=== PATIENT | female | born 1950 | race Caucasian/White ===

== ENCOUNTER 2017-02-26 07:13 | Day surgery (SDC) | payer MEDICARE, OTHER ==
[2017-02-26] MEDS ORDERED: Lactated Ringers 1,000 ML IV SCH (07:15)
[2017-02-26] MEDS ORDERED: fentaNYL 100 MCG/2 ML SDV IV ONE (08:30)
[2017-02-26] MEDS ORDERED: Lidocaine 2% 100 MG/5 ML Syringe IVPUSH ONE (08:30)
[2017-02-26] MEDS ORDERED: Midazolam 1 MG/ML 2 ML SDV IV ONE (08:30)
[2017-02-26] MEDS ORDERED: Propofol 200 MG/20 ML SDV IV ONE (08:30)
--- NOTE | 2017-02-26 08:45 | PCM.OPNOTE ---
- General Post-Op/Procedure Note Date of Surgery/Procedure: 02/26/17 Operative Procedure(s): egd with bx Findings: normal gastric pouch small tongue of Nguyen's Pre Op Diagnosis: heme +stools. hx of Nguyen's. sp gastic bypasss Post-Op Diagnosis: Same Anesthesia Technique: MAC Primary Surgeon: Bertram Moser Anesthesia Provider: Sejal Do Pathology: distal esophagus EBL in mLs: 0 Complications: None Condition: Good Free Text/Narrative:: see dictation
[2017-02-26 09:39] VITALS: BP 120/58
--- NOTE | 2017-02-26 16:58 | OR ---
DATE OF OPERATION: 02/26/2017 SURGEON: Bertram Moser MD PROCEDURE PERFORMED: Esophagogastroduodenoscopy with cold forceps biopsy. PREOPERATIVE DIAGNOSES: Heme-positive stools, history of Nguyen's. POSTOPERATIVE DIAGNOSES: Heme-positive stools, history of Nguyen's. INDICATIONS FOR PROCEDURE: This is a 66-year-old white female, who was recently found to have heme-positive stools. She has had colonoscopy last year which was negative. She had an upper endoscopy done at the same time which demonstrated some Nguyen's without dysplasia, still is having a sour stomach and to determine etiology for her heme-positive stools, an EGD was recommended a followup and she accepted. DESCRIPTION OF PROCEDURE: After an excellent IV sedation was administered, the bite block was inserted. The flexible endoscope was passed without difficulty down the patient's esophagus into the stomach. The gastric pouch was insufflated. The scope was passed down the Amina limb and the mucosa was carefully inspected. The following findings were noted: Amina limb was unremarkable. Gastric pouch unremarkable. Distal esophagus, 40 cm tongue of Nguyen's noted, this was biopsied. There was no overt cause to explain the patient's heme-positive stools. Remainder of the esophageal exam was unremarkable. The stomach was deflated, scope was removed. The patient tolerated the procedure well and was taken to recovery in good condition. /[id number] /MODL
== END 2017-02-26 09:30 | disposition home or self-care (01) ==
LOC: FB.SDS 07:13
PROVIDERS: ATTEND Surgery
PROC: 0DB58ZX Excision of Esophagus, Via Natural or Artificial Opening Endoscopic, Diagnostic (ICD-10-PCS; principal; 2017-02-26)
DX: R19.5 Other fecal abnormalities (principal); K20.8 Other esophagitis; K22.70 Barrett's esophagus without dysplasia; Z98.84 Bariatric surgery status; K21.9 Gastro-esophageal reflux disease without esophagitis; D63.8 Anemia in other chronic diseases classified elsewhere; I10 Essential (primary) hypertension; M17.0 Bilateral primary osteoarthritis of knee; E78.5 Hyperlipidemia, unspecified; Z86.718 Personal history of other venous thrombosis and embolism; Z79.01 Long term (current) use of anticoagulants; I48.91 Unspecified atrial fibrillation; Z96.649 Presence of unspecified artificial hip joint; Z79.899 Other long term (current) drug therapy; Z88.1 Allergy status to other antibiotic agents; Z88.5 Allergy status to narcotic agent; Z88.8 Allergy status to other drugs, medicaments and biological substances; Z91.040 Latex allergy status; Z88.2 Allergy status to sulfonamides; Z91.048 Other nonmedicinal substance allergy status
CPT/HCPCS: 00902; 43239; 88305; 88313; J2250; J2704; J3010; J7120

== ENCOUNTER 2017-02-27 06:32 | Day surgery (SDC) | payer MEDICARE, OTHER ==
[~2017-02-27 06:32] MED LIST: Lactated Ringers 1,000 ML IV SCH; Sodium Chloride 0.9% 10 ML Syringe FLUSH PRN
[2017-02-27] MEDS ORDERED: Propofol 200 MG/20 ML SDV IV ONE (07:30)
--- NOTE | 2017-02-27 08:02 | PCM.OPNOTE ---
- General Post-Op/Procedure Note Date of Surgery/Procedure: 02/27/17 Operative Procedure(s): c scope with bx Findings: internal hemorrhoids distal rectal polyp Pre Op Diagnosis: heme + stools Post-Op Diagnosis: internal hemorrhoids. distal rectal polyp Anesthesia Technique: MAC Primary Surgeon: Bertram Moser Anesthesia Provider: Tim Gill Pathology: rectal polyp Complications: None Condition: Good Free Text/Narrative:: see dictation
--- NOTE | 2017-02-27 08:16 | OR ---
DATE OF OPERATION: 02/27/2017 SURGEON: Bertram Moser MD PROCEDURE PERFORMED: Colonoscopy with cold forceps biopsy. PREOPERATIVE DIAGNOSIS: Blood in stool. POSTOPERATIVE DIAGNOSIS: Distal rectal polyp and internal hemorrhoids. INDICATIONS FOR PROCEDURE: This is a 66-year-old white female who underwent an EGD yesterday for heme-positive stools. This was negative. She was offered and accepted a colonoscopy. DESCRIPTION OF PROCEDURE: After an excellent IV sedation was administered, digital rectal exam was performed. No marked abnormality was noted. The flexible colonoscope was inserted and advanced without difficulty to the cecum. The prep was excellent. The following findings were noted. Ascending colon, unremarkable. Transverse colon, unremarkable. Descending colon, unremarkable. Sigmoid, occasional diverticula. Rectum, distal rectum small polypoid lesion, biopsied with cold biopsy forceps. The patient also has evidence of internal hemorrhoids. Either one of these could be a cause of heme- positive stools. Colon was deflated. The scope was removed. The patient tolerated the procedure and was taken to recovery in good condition. /[id number] /MIKI
[2017-02-27 08:56] VITALS: BP 138/74
== END 2017-02-27 09:31 | disposition home or self-care (01) ==
LOC: FB.SDS 06:32
PROVIDERS: ATTEND Surgery
DX: K62.1 Rectal polyp (principal); K64.8 Other hemorrhoids; I10 Essential (primary) hypertension; E78.5 Hyperlipidemia, unspecified; Z88.1 Allergy status to other antibiotic agents; Z88.2 Allergy status to sulfonamides; Z88.8 Allergy status to other drugs, medicaments and biological substances; Z91.040 Latex allergy status; Z91.09 Other allergy status, other than to drugs and biological substances; Z79.01 Long term (current) use of anticoagulants; Z79.899 Other long term (current) drug therapy; E78.00 Pure hypercholesterolemia, unspecified; E66.9 Obesity, unspecified; Z98.84 Bariatric surgery status; Z98.890 Other specified postprocedural states; Z87.891 Personal history of nicotine dependence
CPT/HCPCS: 00810; 45380; 88305; J2704; J7050; J7120

== ENCOUNTER 2019-04-07 12:32 | Emergency (ER) | payer MEDICARE, OTHER ==
[2019-04-07] MEDS ORDERED: Sodium Chloride 0.9% 10 ML Syringe FLUSH PRN (13:21)
[2019-04-07] MEDS ORDERED: Metoprolol Tartrate 5 MG in Sodium Chloride 0.9% 50 ML IV ONE (13:22)
[2019-04-07] MEDS ORDERED: Sodium Chloride 0.9% 1,000 ML IV SCH (13:30)
[2019-04-07] MEDS ORDERED: Metoprolol Tartrate 5 MG/5 ML SDV IVPUSH ONE (13:48)
[2019-04-07] MEDS ORDERED: Diltiazem 25 MG/5 ML SDV IVPUSH ONE (14:26)
--- NOTE | 2019-04-07 15:35 | EDM.PDOC ---
ED HPI GENERAL MEDICAL PROBLEM - General Chief Complaint: Chest Pain Stated Complaint: A-FIB, SOB Time Seen by Provider: 04/07/19 12:55 Source of Information: Reports: Patient History Limitations: Reports: No Limitations - History of Present Illness INITIAL COMMENTS - FREE TEXT/NARRATIVE: 68-year-old female who reports at approximately midnight last night she awoke just not feeling right. She feels that she was having palpitations and a fast heart rate at that time and she also felt somewhat short of breath. She was unable to get comfortable and actually got up and had some water, walked around for a while then felt that she was somewhat improved but still had a fast heart rate and went back to bed and was able to go back to sleep. She reports that she had a fitful night of sleep and at 6 AM this morning she awoke and thought that may be coffee may help and she had about 8 cups of coffee and she reports that her symptoms seem to worsen through the day with worsening shortness of breath with activity and at around 11 AM she began to have tightness in her chest that was associated with increased difficulty breathing and some nausea. She also felt somewhat lightheaded and near syncopal and was rating the pain in her chest that point as a 6/10. Currently her pain is a 4/10. When she arrived, she was hyperventilating and she was complaining of tingling in both of her arms and her legs. She also felt weak all over. The tightness in her chest did not radiate. There was no arm pain, neck pain or back pain. She has had paroxysmal atrial fibrillation in the past but has really never had symptoms like these associated with her A. fib. She is chronically anticoagulated with Coumadin secondary to her atrial fibrillation. No cough. No fevers or chills. No noted leg swelling. She presents via private vehicle with her family there are no other associated signs or symptoms. There are no other modifying factors. Onset: Today (Around midnight. 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: Home Treatments Midsternal chest & posterior neck Pain Score (Numeric/FACES): 5 - Related Data Allergies Allergy/AdvReac Type Severity Reaction Status Date / Time acetaminophen Allergy Nausea Verified 04/07/19 12:48 [From Darvocet-N 100] adhesive Allergy Itching Verified 04/07/19 12:48 amoxicillin [Amoxicillin] Allergy Itching Verified 04/07/19 12:48 cyclobenzaprine Allergy Cannot Verified 04/07/19 12:48 [Cyclobenzaprine] Remember diclofenac [Diclofenac] Allergy Cannot Verified 04/07/19 12:48 Remember doxycycline Allergy Itching Verified 04/07/19 12:48 hydrocodone Allergy Nausea Verified 04/07/19 12:48 hydromorphone [From Dilaudid] Allergy Hallucinati Verified 04/07/19 12:48 ons latex Allergy Rash Verified 04/07/19 12:48 nitrous oxide [Nitrous Oxide] Allergy Excitabilit Verified 04/07/19 12:48 y prednisone Allergy Itching Verified 04/07/19 12:48 pregabalin [From Lyrica] Allergy Confusion Verified 04/07/19 12:48 propoxyphene napsylate Allergy Nausea Verified 04/07/19 12:48 [From Darvocet-N 100] pseudoephedrine HCl Allergy Dizziness Verified 04/07/19 12:48 [From Actifed] rofecoxib [From Vioxx] Allergy Cannot Verified 04/07/19 12:48 Remember Sulfa (Sulfonamide Allergy Itching Verified 04/07/19 12:48 Antibiotics) tramadol Allergy Nausea Verified 04/07/19 12:48 triprolidine HCl Allergy Dizziness Verified 04/07/19 12:48 [From Actifed] dust mite extract Allergy Sneezing Uncoded 04/07/19 12:48 Home Meds: Home Meds Ascorbic Acid [Vitamin C with Veronika Hips] 500 mg PO DAILY 12/01/13 [History] Biotin 10 mg PO DAILY 12/01/13 [History] Cholecalciferol (Vitamin D3) [Vitamin D3] 2,000 unit PO DAILY 12/01/13 [History] Cyanocobalamin (Vitamin B-12) [Vitamin B-12] 500 mcg PO DAILY 12/01/13 [History] Lisinopril 40 mg PO DAILY 12/01/13 [History] Acetaminophen [Tylenol Arthritis Pain] 1,300 mg PO Q8H PRN 06/14/16 [History] Docusate Sodium [Colace] 200 mg PO DAILY 06/14/16 [History] Oxybutynin Chloride [Ditropan Xl] 5 mg PO BID 06/14/16 [History] Polyethylene Glycol 3350 [MiraLAX] 17 gm PO DAILY PRN 06/14/16 [History] Magnesium 250 mg PO BID 10/20/16 [History] Metoprolol Tartrate 50 mg PO BID 10/20/16 [History] Multivitamin [Daily Elsa] 1 tab PO DAILY 10/20/16 [History] Pantoprazole Sodium [Protonix] 40 mg PO BEDTIME 10/20/16 [History] Cephalexin [Keflex] 2,000 mg PO ONETIME 02/23/17 [History] Warfarin [Coumadin] 12.5 mg PO MOWEFR 02/23/17 [History] Calcium Carbonate/Vitamin D3 [Calcium 500-Vit D3 200 Tablet] 1 each PO BID 02/26 [History] Warfarin [Coumadin] 10 mg PO SUTUTHSA 04/07/19 [History] Past Medical History HEENT History: Reports: Impaired Vision Cardiovascular History: Reports: Afib (Paroxysmal), High Cholesterol, Hypertension, Other (See Below) Other Cardiovascular History: DVT Respiratory History: Reports: Asthma Gastrointestinal History: Reports: Colon Polyp, GERD (COLE'S ESOPHAGUS) Genitourinary History: Reports: Other (See Below) Other Genitourinary History: OAB (OVERACTIVE BLADDER) Musculoskeletal History: Reports: Arthritis, Back Pain, Chronic, Osteoarthritis , Other (See Below) Other Musculoskeletal History: BURSITIS, LEFT KNEE OSTEOARTHRITIS, SPINAL STENOSIS, SPONDYLOLISTHESIS Neurological History: Reports: Other (See Below) Other Neuro History: SPINAL STENOSIS ET SPONDYLOLISTHESIS OF LUMBAR REGION Endocrine/Metabolic History: Reports: Obesity/BMI 30+ Hematologic History: Reports: Anemia, Blood Transfusion(s), Other (See Below) Other Hematologic History: HX OF DVT; acute blood loss anemia secondary to surgery Dermatologic History: Reports: Eczema - Past Surgical History GI Surgical History: Reports: Bariatric Procedure (Gastric bypass), Colonoscopy , EGD, Hernia, Inguinal Other GI Surgeries/Procedures: LIH WITH EXPLORATION Neurological Surgical History: Reports: Lumbar Spine Other Neurological Surgeries/Procedures: LUMBAR FUSION Musculoskeletal Surgical History: Reports: Hip Replacement, Other (See Below) Other Musculoskeletal Surgeries/Procedures:: catalnio. hip arthroplasties 2006 and 2007, REVISION OF LEFT TOTAL HIP ARTHROPLAST 11/20/2013, LUMBAR FUSION Social & Family History - Tobacco Use Smoking Status *Q: Former Smoker Used Tobacco, but Quit: Yes Month/Year Tobacco Last Used: 1997 - Caffeine Use Caffeine Use: Reports: Coffee Caffeine Use Comment: before surgery consuming 4 cups a day. - Alcohol Use Alcohol Use History: Yes Days Per Week of Alcohol Use Comment: 5 Number of Drinks Per Day: 1 - Recreational Drug Use Recreational Drug Use: No - Living Situation & Occupation Living situation: Reports: Social History Comment: Here with her and son. ED ROS GENERAL - Review of Systems Review Of Systems: See Below Constitutional: Reports: Malaise, Fatigue HEENT: Reports: No Symptoms Respiratory: Reports: Shortness of Breath Cardiovascular: Reports: Chest Pain, Dyspnea on Exertion, Lightheadedness : Reports: No Symptoms Musculoskeletal: Reports: No Symptoms Skin: Reports: No Symptoms Neurological: Reports: Other (Near syncopal). Denies: Headache Psychiatric: Reports: Anxiety Hematologic/Lymphatic: Reports: Easy Bleeding (Chronically anticoagulated on Coumadin) Immunologic: Reports: No Symptoms ED EXAM, GENERAL - Physical Exam Exam: See Below Exam Limited By: No Limitations General Appearance: Alert, WD/WN, Moderate Distress Eye Exam: Bilateral Eye: EOMI, Normal Inspection, PERRL Ears: Normal External Exam Ear Exam: Bilateral Ear: Auricle Normal Nose: Normal Inspection, Normal Mucosa, No Blood Throat/Mouth: Normal Inspection, Normal Oropharynx, Normal Voice, No Airway Compromise Head: Atraumatic, Normocephalic Neck: Normal Inspection, Supple, Non-Tender, Full Range of Motion Respiratory/Chest: No Respiratory Distress, Lungs Clear, Normal Breath Sounds, No Accessory Muscle Use, Chest Non-Tender Cardiovascular: Normal Peripheral Pulses, No Gallop, No JVD, Tachycardia, Irregularly Irregular Peripheral Pulses: 2+: Radial (L), Radial (R) GI/Abdominal: Normal Bowel Sounds, Soft, Non-Tender, No Distention, No Mass Back Exam: Normal Inspection Extremities: Normal Inspection, Normal Range of Motion, Non-Tender, Normal Capillary Refill, Pedal Edema (Trace) Neurological: Alert, Oriented, CN II-XII Intact, Normal Cognition Psychiatric: Normal Affect, Normal Mood Skin Exam: Warm, Dry, Intact EKG INTERPRETATION EKG Date: 04/07/19 Time: 12:36 Rhythm: A-Fib (With RVR) Rate (Beats/Min): 120 [place]: Normal P-Wave: Absent QRS: Normal ST-T: Depressed (Anterior and lateral) QT: Normal Comparison: NA - No Prior EKG (The patient reports that she was in a normal sinus rhythm prior to this.) EKG Interpretation Comments: EKG performed at 3:32 PM today in follow-up after diltiazem given IV shows atrial fibrillation with a rate of 89. There is evidence of LVH. The lateral and inferior ST depression changes have resolved. There is a normal axis with a normal QTC. Course - Vital Signs Last Recorded V/S: Last Vital Signs Temp 36.8 C 04/07/19 12:32 Pulse 129 H 04/07/19 13:57 Resp 28 H 04/07/19 12:32 BP 120/87 04/07/19 13:57 Pulse Ox 100 04/07/19 12:32 - Orders/Labs/Meds Orders: Active Orders 24 hr Category Date Time Status EKG Documentation Completion [RC] ASDIRECTED Care 04/07/19 13:22 Active EKG Documentation Completion [RC] ASDIRECTED Care 04/07/19 15:28 Active Oxygen Therapy Adult [Oxygen Therapy, ED] [RC] Care 04/07/19 13:23 Active ASDIRECTED Chest 1V Frontal [CR] Stat Exams 04/07/19 13:21 Taken Sodium Chloride 0.9% [Normal Saline] 1,000 ml Med 04/07/19 13:30 Active IV ASDIRECTED Sodium Chloride 0.9% [Saline Flush] Med 04/07/19 13:21 Active 10 ml FLUSH ASDIRECTED PRN Peripheral IV Insertion Adult [OM.PC] Routine Oth 04/07/19 13:21 Ordered EKG 12 Lead [EK] Routine Ther 04/07/19 13:22 Ordered EKG 12 Lead [EK] Routine Ther 04/07/19 15:28 Ordered Medication Orders Sodium Chloride (Normal Saline) 1,000 mls @ 0 mls/hr IV ASDIRECTED ZACHARIAH Stop: 04/11/19 13:23 Last Admin: 04/07/19 13:54 Dose: 30 mls/hr Sodium Chloride (Saline Flush) 10 ml FLUSH ASDIRECTED PRN PRN Reason: Keep Vein Open Labs: Laboratory Tests 04/07/19 04/07/19 04/07/19 Range/Units 12:32 12:32 12:32 WBC 7.1 (4.5-12.0) X10-3/uL RBC 4.21 (3.23-5.20) x10(6)uL Hgb 14.0 (11.5-15.5) g/dL Hct 41.2 D (30.0-51.3) % MCV 97.9 H (80-96) fL MCH 33.2 (27.7-33.6) pg MCHC 33.9 (32.2-35.4) g/dL RDW 12.2 (11.5-15.5) % Plt Count 288 (125-369) X10(3)uL MPV 7.1 L (7.4-10.4) fL Neut % (Auto) 48.1 (46-82) % Lymph % (Auto) 42.7 H (13-37) % [place] % (Auto) 8.3 (4-12) % Eos % (Auto) 1 (1.0-5.0) % Baso % (Auto) 0 (0-2) % Neut # (Auto) 3.5 (1.6-8.3) # Lymph # (Auto) 3.0 (0.6-5.0) # [place] # (Auto) 0.6 (0.0-1.3) # Eos # (Auto) 0.0 (0.0-0.8) # Baso # (Auto) 0.0 (0.0-0.2) # PT 20.6 H (8.7-11.1) INR 2.14 H (0.89-1.13) Sodium 139 (135-145) mmol/L Potassium 4.2 (3.5-5.3) mmol/L Chloride 101 (100-110) mmol/L Carbon Dioxide 26 (21-32) mmol/L BUN 13 (7-18) mg/dL Creatinine 0.9 (0.55-1.02) mg/dL Est Cr Clr Drug Dosing 52.34 mL/min Estimated GFR (MDRD) > 60 (>60) BUN/Creatinine Ratio 14.4 (9-20) Glucose 144 H (80-116) mg/dL Calcium 9.3 (8.6-10.2) mg/dL Magnesium 1.9 (1.8-2.5) mg/dL Total Bilirubin 0.5 (0.1-1.3) mg/dL AST 28 H (5-25) IU/L ALT 41 H (12-36) U/L Alkaline Phosphatase 62 (56-112) IU/L Troponin I (<0.017-0.056) ng/mL NT-Pro-B Natriuret Pep (<=125) pg/mL Total Protein 7.3 (6.0-8.0) g/dL Albumin 4.1 (3.2-4.6) g/dL Globulin 3.2 g/dL Albumin/Globulin Ratio 1.3 // Range/Units 12:32 WBC (4.5-12.0) X10-3/uL RBC (3.23-5.20) x10(6)uL Hgb (11.5-15.5) g/dL Hct (30.0-51.3) % MCV (80-96) fL MCH (27.7-33.6) pg MCHC (32.2-35.4) g/dL RDW (11.5-15.5) % Plt Count (125-369) X10(3)uL MPV (7.4-10.4) fL Neut % (Auto) (46-82) % Lymph % (Auto) (13-37) % [place] % (Auto) (4-12) % Eos % (Auto) (1.0-5.0) % Baso % (Auto) (0-2) % Neut # (Auto) (1.6-8.3) # Lymph # (Auto) (0.6-5.0) # [place] # (Auto) (0.0-1.3) # Eos # (Auto) (0.0-0.8) # Baso # (Auto) (0.0-0.2) # PT (8.7-11.1) INR (0.89-1.13) Sodium (135-145) mmol/L Potassium (3.5-5.3) mmol/L Chloride (100-110) mmol/L Carbon Dioxide (21-32) mmol/L BUN (7-18) mg/dL Creatinine (0.55-1.02) mg/dL Est Cr Clr Drug Dosing mL/min Estimated GFR (MDRD) (>60) BUN/Creatinine Ratio (9-20) Glucose (80-116) mg/dL Calcium (8.6-10.2) mg/dL Magnesium (1.8-2.5) mg/dL Total Bilirubin (0.1-1.3) mg/dL AST (5-25) IU/L ALT (12-36) U/L Alkaline Phosphatase (56-112) IU/L Troponin I 0.027 (<0.017-0.056) ng/mL NT-Pro-B Natriuret Pep 2928 H* (<=125) pg/mL Total Protein (6.0-8.0) g/dL Albumin (3.2-4.6) g/dL Globulin g/dL Albumin/Globulin Ratio Meds: Medications Generic Name Dose Route Start Last Admin Trade Name Freq PRN Reason Stop Dose Admin Sodium Chloride 1,000 mls @ 0 mls/hr 04/07/19 13:30 04/07/19 13:54 Normal Saline IV 04/11/19 13:23 30 mls/hr ASDIRECTED ZACHARIAH Administration KVO Sodium Chloride 10 ml 04/07/19 13:21 Saline Flush FLUSH ASDIRECTED PRN Keep Vein Open Discontinued Medications Generic Name Dose Route Start Last Admin Trade Name Freq PRN Reason Stop Dose Admin Diltiazem HCl 20 mg 04/07/19 14:26 04/07/19 14:33 Diltiazem IVPUSH 04/07/19 14:27 20 mg ONETIME ONE Administration Metoprolol Tartrate 5 mg 04/07/19 13:48 04/07/19 13:57 Lopressor IVPUSH 04/07/19 13:49 5 mg ONETIME ONE Administration - Radiology Interpretation Free Text/Narrative:: Portable chest x-ray shows no acute disease. - Re-Assessments/Exams Free Text/Narrative Re-Assessment/Exam: 04/07/19 14:10: Patient has had no response from the metoprolol. He remains in A. fib with RVR and a rate in the 130s. Her breathing has improved. She still has some chest tightness. I will give the patient diltiazem 20 mg IV and continue close monitoring. Her BNP is markedly elevated but her chest x-ray does not show evidence of decompensated CHF. Her symptoms are somewhat supportive of mild CHF. Her troponin is 0.027. With her A. fib with RVR, chest pain, new mild CHF and the mild troponin abnormality the patient will need admission and she may need specially services which are not available at [facility]. Or she will need be transferred to a facility with these specially services (cardiology) available and she will wants me to discuss her case with DrsRoxie at [facility] in [place]. 04/07/19 14:50: I discussed patient's case with Dr. Kramer, hospitalist at [facility] in [place], and he has agreed to accept the patient in transfer. The patient had received the diltiazem 20 mg IV and currently has what appears to be A. fib on the monitor with a ventricular rate in the 80s. She feels improved with this. The patient will be transferred via ambulance to [facility] for direct admission. 04/07/19 15:58: Repeat EKG performed at 3:30 PM does show continued A. fib with a heart rate of 89. The lateral and inferior ST depressions which is been previous on the previous EKG are now resolved. She has chest tightness free and feels much improved. These dynamic EKG changes also support her eat for transfer. The patient and her are in agreement with the plans for transfer. We are awaiting ambulance transfer. Departure - Departure Time of Disposition: 15:40 Disposition: DC/Tfer to Acute Hospital 02 Reason for Transfer *Q: Other (Patient with chest pain and dynamic EKG changes) Condition: Critical (Guarded) Clinical Impression: Atrial fibrillation with RVR, Mild congestive heart failure, Acute electrocardiogram changes Chest pain Qualifiers: Chest pain type: unspecified Qualified Code(s): R07.9 - Chest pain, unspecified Referrals: Juan Pacheco MD [Primary Care Provider] - Forms: ED Department Discharge - My Orders Last 24 Hours: My Active Orders 04/07/19 13:21 Chest 1V Frontal [CR] Stat Sodium Chloride 0.9% [Saline Flush] 10 ml FLUSH ASDIRECTED PRN Peripheral IV Insertion Adult [OM.PC] Routine 04/07/19 13:22 EKG Documentation Completion [RC] ASDIRECTED EKG 12 Lead [EK] Routine 04/07/19 13:23 Oxygen Therapy Adult [Oxygen Therapy, ED] [RC] ASDIRECTED 04/07/19 13:30 Sodium Chloride 0.9% [Normal Saline] 1,000 ml IV ASDIRECTED 04/07/19 15:28 EKG Documentation Completion [RC] ASDIRECTED EKG 12 Lead [EK] Routine - Assessment/Plan Last 24 Hours: My Active Orders 04/07/19 13:21 Chest 1V Frontal [CR] Stat Sodium Chloride 0.9% [Saline Flush] 10 ml FLUSH ASDIRECTED PRN Peripheral IV Insertion Adult [OM.PC] Routine 04/07/19 13:22 EKG Documentation Completion [RC] ASDIRECTED EKG 12 Lead [EK] Routine 04/07/19 13:23 Oxygen Therapy Adult [Oxygen Therapy, ED] [RC] ASDIRECTED 04/07/19 13:30 Sodium Chloride 0.9% [Normal Saline] 1,000 ml IV ASDIRECTED 04/07/19 15:28 EKG Documentation Completion [RC] ASDIRECTED EKG 12 Lead [EK] Routine
[2019-04-07 17:42] VITALS: BP 154/74
--- NOTE | 2019-04-08 08:58 | CR ---
INDICATION: Chest tightness and palpitations. CHEST ONE VIEW: AP upright portable view of the chest revealed the heart to be normal in size and shape. The aorta is minimally tortuous. Overlying EKG leads are noted. An active infiltrate or effusion was not identified. IMPRESSION: No acute process--no comparisons. MTDD
== END 2019-04-07 16:15 ==
LOC: FB.ED 12:32
DX: I48.91 Unspecified atrial fibrillation (principal); I11.0 Hypertensive heart disease with heart failure; I50.9 Heart failure, unspecified; R94.31 Abnormal electrocardiogram [ECG] [EKG]; Z87.891 Personal history of nicotine dependence; J45.909 Unspecified asthma, uncomplicated; Z79.899 Other long term (current) drug therapy; Z88.6 Allergy status to analgesic agent; Z88.1 Allergy status to other antibiotic agents; Z88.2 Allergy status to sulfonamides; Z91.09 Other allergy status, other than to drugs and biological substances; Z91.040 Latex allergy status; Z88.8 Allergy status to other drugs, medicaments and biological substances
CPT/HCPCS: 36415; 71045; 80053; 83735; 83880; 84484; 85025; 85610; 93005; 96361; 96374; 96375; 99285; J3490; J7030

== ENCOUNTER 2019-12-24 01:03 | Inpatient (IN) | payer MEDICARE, OTHER ==
--- NOTE | 2019-12-24 01:32 | EDM.PDOC ---
ED HPI GENERAL MEDICAL PROBLEM - General Chief Complaint: Chest Pain Stated Complaint: BACK PAIN; CHEST PAIN Time Seen by Provider: 12/24/19 01:25 Source of Information: Reports: Patient History Limitations: Reports: No Limitations - History of Present Illness INITIAL COMMENTS - FREE TEXT/NARRATIVE: 69-year-old female with onset of bilateral breast pain that was a soreness which she states began about 2-3 days ago. It was intermittent and did not last for very long but since then she has developed pain in her central chest that is a tightness and pressure that also seems to come and go and last for a variable period of time. She reports that it does not seem to have any exacerbating or alleviating factors. She has no shortness of breath associated with this. She has had some intermittent dizziness associated with this. It seems to come on when she sits up and goes away quickly. The pain has been continual over the past 2-3 hours and she also has some right upper back pain. This pain is a tightness and aching type of pain and she rates it as a 5-6/10. There are no exacerbating or alleviating factors associated with this. She has had some nausea associated with this but no vomiting. No cough. No nasal congestion. No fevers. She states that she has been taking her medicine as prescribed. She does report that she took Tums without any relief. She presents via private vehicle with her from home. There are no other associated signs or symptoms. There are no other modifying factors. Onset: Other (2-3 days) Duration: Getting Worse Location: Reports: Chest, Back Quality: Reports: Ache, Pressure Severity: Moderate (Rated the pain as a 5-6/10 today.) Improves with: Reports: None Worsens with: Reports: None Context: Reports: Other (As above. Came on with variable activity and rest. 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) chest and right side of back Pain Score (Numeric/FACES): 6 - Related Data Allergies Allergy/AdvReac Type Severity Reaction Status Date / Time acetaminophen Allergy Nausea Verified 12/24/19 01:16 [From Darvocet-N 100] adhesive Allergy Itching Verified 12/24/19 01:16 amoxicillin [Amoxicillin] Allergy Itching Verified 12/24/19 01:16 cyclobenzaprine Allergy Cannot Verified 12/24/19 01:16 [Cyclobenzaprine] Remember diclofenac [Diclofenac] Allergy Cannot Verified 12/24/19 01:16 Remember doxycycline Allergy Itching Verified 12/24/19 01:16 hydrocodone Allergy Nausea Verified 12/24/19 01:16 hydromorphone [From Dilaudid] Allergy Hallucinati Verified 12/24/19 01:16 ons latex Allergy Rash Verified 12/24/19 01:16 nitrous oxide [Nitrous Oxide] Allergy Excitabilit Verified 12/24/19 01:16 y prednisone Allergy Itching Verified 12/24/19 01:16 pregabalin [From Lyrica] Allergy Confusion Verified 12/24/19 01:16 propoxyphene napsylate Allergy Nausea Verified 12/24/19 01:16 [From Darvocet-N 100] pseudoephedrine HCl Allergy Dizziness Verified 12/24/19 01:16 [From Actifed] rofecoxib [From Vioxx] Allergy Cannot Verified 12/24/19 01:16 Remember Sulfa (Sulfonamide Allergy Itching Verified 12/24/19 01:16 Antibiotics) tramadol Allergy Nausea Verified 12/24/19 01:16 triprolidine HCl Allergy Dizziness Verified 12/24/19 01:16 [From Actifed] dust mite extract Allergy Sneezing Uncoded 04/07/19 12:48 Home Meds: Home Meds Ascorbic Acid [Vitamin C with Veronika Hips] 500 mg PO DAILY 12/01/13 [History] Biotin 10 mg PO DAILY 12/01/13 [History] Cholecalciferol (Vitamin D3) [Vitamin D3] 2,000 unit PO DAILY 12/01/13 [History] Cyanocobalamin (Vitamin B-12) [Vitamin B-12] 500 mcg PO DAILY 12/01/13 [History] Lisinopril 40 mg PO DAILY 12/01/13 [History] Acetaminophen [Tylenol Arthritis Pain] 1,300 mg PO Q8H PRN 06/14/16 [History] Docusate Sodium [Colace] 200 mg PO DAILY 06/14/16 [History] Oxybutynin Chloride [Ditropan Xl] 5 mg PO BID 06/14/16 [History] Polyethylene Glycol 3350 [MiraLAX] 17 gm PO DAILY PRN 06/14/16 [History] Magnesium 250 mg PO BID 10/20/16 [History] Metoprolol Tartrate 50 mg PO BID 10/20/16 [History] Multivitamin [Daily Elsa] 1 tab PO DAILY 10/20/16 [History] Pantoprazole Sodium [Protonix] 40 mg PO BEDTIME 10/20/16 [History] Cephalexin [Keflex] 2,000 mg PO ONETIME 02/23/17 [History] Warfarin [Coumadin] 12.5 mg PO MOWEFR 02/23/17 [History] Calcium Carbonate/Vitamin D3 [Calcium 500-Vit D3 200 Tablet] 1 each PO BID 02/26 [History] Warfarin [Coumadin] 10 mg PO SUTUTHSA 04/07/19 [History] Past Medical History HEENT History: Reports: Impaired Vision Cardiovascular History: Reports: Afib (Paroxysmal), Blood Clots/VTE/DVT, High Cholesterol, Hypertension Respiratory History: Reports: Asthma Other Respiratory History: mild, intermittent Gastrointestinal History: Reports: Colon Polyp, GERD (COLE'S ESOPHAGUS) Other Gastrointestinal History: COLE'S ESOPHAGUS Genitourinary History: Reports: Other (See Below) Other Genitourinary History: OAB (OVERACTIVE BLADDER) ON AIR PERSONALITY History: Reports: Other (See Below) Other ON AIR PERSONALITY History: NULLIGRAVIDA Musculoskeletal History: Reports: Arthritis, Back Pain, Chronic, Osteoarthritis , Other (See Below) Other Musculoskeletal History: BURSITIS, LEFT KNEE OSTEOARTHRITIS, SPINAL STENOSIS, SPONDYLOLISTHESIS Neurological History: Reports: Other (See Below) Other Neuro History: SPINAL STENOSIS ET SPONDYLOLISTHESIS OF LUMBAR REGION Endocrine/Metabolic History: Reports: Obesity/BMI 30+ Hematologic History: Reports: Anemia, Anticoagulation Therapy, Blood Transfusion (s), Other (See Below) Other Hematologic History: HX OF DVT; acute blood loss anemia secondary to surgery Dermatologic History: Reports: Eczema - Past Surgical History GI Surgical History: Reports: Bariatric Procedure (Gastric bypass), Colonoscopy , EGD, Hernia, Inguinal Other GI Surgeries/Procedures: LIH WITH EXPLORATION Neurological Surgical History: Reports: Lumbar Spine Other Neurological Surgeries/Procedures: LUMBAR FUSION Musculoskeletal Surgical History: Reports: Ganglion Cyst (Removed from right wrist), Hip Replacement, Other (See Below) Other Musculoskeletal Surgeries/Procedures:: catalino. hip arthroplasties 2006 and 2007, REVISION OF LEFT TOTAL HIP ARTHROPLAST 11/20/2013, LUMBAR FUSION Social & Family History - Tobacco Use Smoking Status *Q: Former Smoker (Nonsmoker since 1997.) - Caffeine Use Caffeine Use: Reports: Coffee Caffeine Use Comment: before surgery consuming 4 cups a day. - Alcohol Use Alcohol Use History: Yes Alcohol Use Frequency: Daily (She states she has 2-3 mixed drinks every night.) - Living Situation & Occupation Living situation: Reports: Occupation: Retired Social History Comment: She is here with her . ED ROS GENERAL - Review of Systems Review Of Systems: See Below Constitutional: Reports: No Symptoms HEENT: Reports: No Symptoms Respiratory: Reports: No Symptoms Cardiovascular: Reports: Chest Pain Endocrine: Reports: No Symptoms GI/Abdominal: Reports: Nausea. Denies: Vomiting Musculoskeletal: Reports: Back Pain (Right upper back pain) Neurological: Reports: Dizziness (Intermittent) Hematologic/Lymphatic: Reports: Easy Bleeding, Other (Patient is chronically anticoagulated on Coumadin.) Immunologic: Reports: No Symptoms ED EXAM, GENERAL - Physical Exam Exam: See Below Exam Limited By: No Limitations General Appearance: Alert, WD/WN, Anxious, Mild Distress Eye Exam: Right Eye: Other (Probable pterygium on right lateral eye), Bilateral Eye: EOMI, Normal Inspection Ears: Normal External Exam, Hearing Grossly Normal Ear Exam: Bilateral Ear: Auricle Normal Nose: Normal Inspection, Normal Mucosa, No Blood Throat/Mouth: Normal Inspection, Normal Oropharynx, Normal Voice, No Airway Compromise Head: Atraumatic, Normocephalic Neck: Normal Inspection, Supple, Non-Tender, Full Range of Motion Respiratory/Chest: No Respiratory Distress, Lungs Clear, Normal Breath Sounds, No Accessory Muscle Use, Chest Non-Tender Cardiovascular: Normal Peripheral Pulses, Regular Rate, Rhythm, No JVD, No Murmur Peripheral Pulses: 2+: Radial (L), Radial (R), Dorsalis Pedis (L), Dorsalis Pedis (R) GI/Abdominal: Normal Bowel Sounds, Soft, Non-Tender, No Mass Back Exam: Normal Inspection, Full Range of Motion Extremities: Normal Inspection, Normal Range of Motion, Non-Tender, No Pedal Edema, Normal Capillary Refill Neurological: Alert, Oriented, CN II-XII Intact, Normal Cognition, No Motor/ Sensory Deficits Skin Exam: Warm, Dry, Intact, Normal Color, No Rash EKG INTERPRETATION EKG Date: 12/24/19 Time: 01:26 Rhythm: NSR Rate (Beats/Min): 64 [place]: Normal P-Wave: Present QRS: Normal ST-T: Normal QT: Normal Comparison: Change From Previous EKG (Previous EKG on 04/07/2019 showed atrial fibrillation and that is now resolved.) EKG Interpretation Comments: Repeat EKG performed at 2:54 AM shows no change from the previous EKG performed today. There is a normal sinus rhythm with a normal axis and normal intervals. There is no current of injury or ischemia present. Course - Vital Signs Last Recorded V/S: Last Vital Signs Temp 36.3 C 12/24/19 01:03 Pulse 60 12/24/19 04:28 Resp 18 12/24/19 04:28 BP 146/65 H 12/24/19 03:18 Pulse Ox 98 12/24/19 04:28 - Orders/Labs/Meds Orders: Active Orders 24 hr Category Date Time Status Admission Status [Patient Status] [ADT] Routine ADT 12/24/19 04:38 Active Cardiac Monitoring [RC] .As Directed Care 12/24/19 04:38 Active EKG Documentation Completion [RC] ASDIRECTED Care 12/24/19 01:45 Active EKG Documentation Completion [RC] ASDIRECTED Care 12/24/19 02:49 Active Ang Chest [CT] Stat Exams 12/24/19 02:57 Taken CTA Abd Pelv w Cont [CT] Stat Exams 12/24/19 02:57 Taken Chest 1V Frontal [CR] Stat Exams 12/24/19 01:54 Taken Sodium Chloride 0.9% [Normal Saline] 1,000 ml Med 12/24/19 02:00 Active IV ASDIRECTED Sodium Chloride 0.9% [Saline Flush] Med 12/24/19 01:54 Active 10 ml FLUSH ASDIRECTED PRN Peripheral IV Insertion Adult [OM.PC] Routine Oth 12/24/19 01:54 Ordered EKG 12 Lead [EK] Routine Ther 12/24/19 01:15 Ordered EKG 12 Lead [EK] Routine Ther 12/24/19 02:49 Ordered Medication Orders Sodium Chloride (Normal Saline) 1,000 mls @ 0 mls/hr IV ASDIRECTED ZACHARIAH Stop: 12/28/19 01:57 Last Admin: 12/24/19 02:20 Dose: 25 mls/hr Sodium Chloride (Normal Saline) 1,000 mls @ 100 mls/hr IV ASDIRECTED ZACHARIAH Morphine Sulfate (Morphine) 2 mg IVPUSH Q2H PRN PRN Reason: Pain Ondansetron HCl (Zofran) 4 mg IV Q6H PRN PRN Reason: Nausea/Vomiting Pantoprazole Sodium (Protonix Iv) 40 mg IVPUSH Q12H ZACHARIAH Sodium Chloride (Saline Flush) 10 ml FLUSH ASDIRECTED PRN PRN Reason: Keep Vein Open Last Admin: 12/24/19 02:40 Dose: 10 ml Admin: 12/24/19 02:20 Dose: 10 ml Labs: Laboratory Tests 12/24/19 12/24/19 12/24/19 Range/Units 02:06 02:06 02:06 WBC 5.6 (4.5-12.0) X10-3/uL RBC 3.70 (3.23-5.20) x10(6)uL Hgb 12.4 (11.5-15.5) g/dL Hct 36.6 (30.0-51.3) % MCV 99.0 H (80-96) fL MCH 33.5 (27.7-33.6) pg MCHC 33.8 (32.2-35.4) g/dL RDW 12.0 (11.5-15.5) % Plt Count 266 (125-369) X10(3)uL MPV 6.3 L (7.4-10.4) fL Neut % (Auto) 74.6 (46-82) % Lymph % (Auto) 17.0 (13-37) % [place]ven % (Auto) 7.2 (4-12) % Eos % (Auto) 1 (1.0-5.0) % Baso % (Auto) 1 (0-2) % Neut # (Auto) 4.2 (1.6-8.3) # Lymph # (Auto) 1.0 (0.6-5.0) # Craven # (Auto) 0.4 (0.0-1.3) # Eos # (Auto) 0.0 (0.0-0.8) # Baso # (Auto) 0.0 (0.0-0.2) # PT 29.9 H (9.0-11.1) sec INR 3.11 H (1.00-1.24) D-Dimer, Quantitative 0.71 H (0.0-0.59) mg/LFEU Sodium 133 L (135-145) mmol/L Potassium 4.1 (3.5-5.3) mmol/L Chloride 96 L D (100-110) mmol/L Carbon Dioxide 29 (21-32) mmol/L BUN 13 (7-18) mg/dL Creatinine 0.8 (0.55-1.02) mg/dL Est Cr Clr Drug Dosing 55.70 mL/min Estimated GFR (MDRD) > 60 (>60) BUN/Creatinine Ratio 16.3 (9-20) Glucose 98 (80-116) mg/dL Calcium 8.9 (8.6-10.2) mg/dL Magnesium 1.8 (1.8-2.5) mg/dL Total Bilirubin 0.3 (0.1-1.3) mg/dL AST 42 H D (5-25) IU/L ALT 44 H (12-36) U/L Alkaline Phosphatase 53 L (56-112) IU/L Troponin I (4.0-60.3) pg/mL Total Protein 7.1 (6.0-8.0) g/dL Albumin 3.8 (3.2-4.6) g/dL Globulin 3.3 g/dL Albumin/Globulin Ratio 1.2 Lipase (73-393) U/L 12/24/19 12/24/19 Range/Units 02:06 02:06 WBC (4.5-12.0) X10-3/uL RBC (3.23-5.20) x10(6)uL Hgb (11.5-15.5) g/dL Hct (30.0-51.3) % MCV (80-96) fL MCH (27.7-33.6) pg MCHC (32.2-35.4) g/dL RDW (11.5-15.5) % Plt Count (125-369) X10(3)uL MPV (7.4-10.4) fL Neut % (Auto) (46-82) % Lymph % (Auto) (13-37) % Craven % (Auto) (4-12) % Eos % (Auto) (1.0-5.0) % Baso % (Auto) (0-2) % Neut # (Auto) (1.6-8.3) # Lymph # (Auto) (0.6-5.0) # Craven # (Auto) (0.0-1.3) # Eos # (Auto) (0.0-0.8) # Baso # (Auto) (0.0-0.2) # PT (9.0-11.1) sec INR (1.00-1.24) D-Dimer, Quantitative (0.0-0.59) mg/LFEU Sodium (135-145) mmol/L Potassium (3.5-5.3) mmol/L Chloride (100-110) mmol/L Carbon Dioxide (21-32) mmol/L BUN (7-18) mg/dL Creatinine (0.55-1.02) mg/dL Est Cr Clr Drug Dosing mL/min Estimated GFR (MDRD) (>60) BUN/Creatinine Ratio (9-20) Glucose (80-116) mg/dL Calcium (8.6-10.2) mg/dL Magnesium (1.8-2.5) mg/dL Total Bilirubin (0.1-1.3) mg/dL AST (5-25) IU/L ALT (12-36) U/L Alkaline Phosphatase (56-112) IU/L Troponin I 10.8 (4.0-60.3) pg/mL Total Protein (6.0-8.0) g/dL Albumin (3.2-4.6) g/dL Globulin g/dL Albumin/Globulin Ratio Lipase 81 (73-393) U/L Meds: Medications Generic Name Dose Route Start Last Admin Trade Name Freq PRN Reason Stop Dose Admin Sodium Chloride 1,000 mls @ 0 mls/hr 12/24/19 02:00 12/24/19 04:53 Normal Saline IV 12/28/19 01:57 100 mls/hr ASDIRECTED ZACHARIAH Infusion KVO Sodium Chloride 1,000 mls @ 100 mls/hr 12/24/19 05:00 Normal Saline IV ASDIRECTED ZACHARIAH Morphine Sulfate 2 mg 12/24/19 04:49 Morphine IVPUSH Q2H PRN Pain Ondansetron HCl 4 mg 12/24/19 04:49 Zofran IV Q6H PRN Nausea/Vomiting Pantoprazole Sodium 40 mg 12/24/19 05:00 Protonix Iv IVPUSH Q12H ZACHARIAH Sodium Chloride 10 ml 12/24/19 01:54 12/24/19 04:46 Saline Flush FLUSH 10 ml ASDIRECTED PRN Administration Keep Vein Open Discontinued Medications Generic Name Dose Route Start Last Admin Trade Name Freq PRN Reason Stop Dose Admin Aspirin 324 mg 12/24/19 01:56 12/24/19 02:21 Aspirin PO 12/24/19 01:57 324 mg ONETIME ONE Administration Ceftriaxone Sodium 1 gm 12/24/19 04:38 12/24/19 04:44 Rocephin IVPUSH 12/24/19 04:39 1 gm ONETIME ONE Administration Iopamidol 100 ml 12/24/19 03:04 12/24/19 03:42 Isovue-370 (76%) IV 12/24/19 03:05 100 ml . DIRECTED ONE Administration Morphine Sulfate 4 mg 12/24/19 04:55 Morphine IVPUSH 12/24/19 04:56 ONETIME ONE Nitroglycerin 0.4 mg 12/24/19 01:56 12/24/19 02:39 Nitrostat SL 0.4 mg Q5M PRN Administration Chest Pain Ondansetron HCl 4 mg 12/24/19 02:33 12/24/19 02:36 Zofran IVPUSH 12/24/19 02:34 4 mg ONETIME ONE Administration Ondansetron HCl 4 mg 12/24/19 04:55 Zofran IVPUSH 12/24/19 04:56 ONETIME ONE - Radiology Interpretation Free Text/Narrative:: Portable chest x-ray showed no acute disease. CTA of the chest, abdomen and pelvis showed no evidence of dissection or aneurysm. There was cholelithiasis with stones at the gallbladder neck, prominent gallbladder wall thickening and a question of cholecystitis per the [facility] radiologist. - Re-Assessments/Exams Free Text/Narrative Re-Assessment/Exam: 12/24/19 02:55: Troponin is still pending. The INR is 3.11. The d-dimer is 0.71. I repeat EKG shows no change. She has received 2 sublingual nitroglycerin and her pain has dropped to a 2/10 at this point. She does feel much better. I think a dissection is unlikely but with the S and back pain and the slightly elevated d-dimer, I think she will need a CTa of her chest, abdomen and pelvis to rule out dissection. We will continue close monitoring. 12/24/19 04:35: CTA of the chest, abdomen and pelvis showed no evidence of dissection or aneurysm. However, it did show some evidence of cholecystitis. The patient has remained hemodynamically stable and remains afebrile. Her blood pressure is much improved in the 130 to 140 systolic range. A repeat exam of her abdomen did show that she had tenderness with palpation and her right upper quadrant. She was nontender elsewhere in her abdomen and there was no evidence of an acute surgical abdomen at this point. With the chest and back pain and the CT evidence of possible cholecystitis and the patient's abdominal pain with palpation, I feel that observation admission with IV antibiotics, IV fluids, NPO status for now and continued cardiac monitoring with serial troponins is appropriate. I discussed this with the patient and with her and they are in agreement with this plan. The patient has taken Keflex in the past without any problems and therefore I will give her Rocephin [address] Mars will assume care of the patient at 7 AM today. Departure - Departure Time of Disposition: 04:45 Disposition: Refer to Observation Condition: Fair (Stable) Clinical Impression: Cholelithiasis and acute cholecystitis with obstruction, Chronic anticoagulation Chest pain Qualifiers: Chest pain type: unspecified Qualified Code(s): R07.9 - Chest pain, unspecified Back pain Qualifiers: Back pain location: thoracic back pain Chronicity: acute Back pain laterality: right Qualified Code(s): M54.6 - Pain in thoracic spine Abdominal pain Qualifiers: Abdominal location: right upper quadrant Qualified Code(s): R10.11 - Right upper quadrant pain Sepsis Event Note - Focused Exam Vital Signs: Vital Signs Temp Pulse Resp BP BP Pulse Ox 12/24/19 04:28 60 18 98 12/24/19 03:18 57 L 17 146/65 H 96 12/24/19 02:45 63 18 122/62 95 12/24/19 02:44 62 18 125/68 97 12/24/19 02:39 125/68 12/24/19 02:34 174/75 H 12/24/19 02:32 74 14 174/75 H 100 12/24/19 02:25 63 14 168/72 H 99 12/24/19 02:24 168/72 H 12/24/19 01:03 36.3 C 67 14 187/75 H 100 Date Exam was Performed: 12/24/19 Time Exam was Performed: 04:56 - My Orders Last 24 Hours: My Active Orders 12/24/19 01:15 EKG 12 Lead [EK] Routine 12/24/19 01:45 EKG Documentation Completion [RC] ASDIRECTED 12/24/19 01:54 Chest 1V Frontal [CR] Stat Sodium Chloride 0.9% [Saline Flush] 10 ml FLUSH ASDIRECTED PRN Peripheral IV Insertion Adult [OM.PC] Routine 12/24/19 02:00 Sodium Chloride 0.9% [Normal Saline] 1,000 ml IV ASDIRECTED 12/24/19 02:49 EKG Documentation Completion [RC] ASDIRECTED EKG 12 Lead [EK] Routine 12/24/19 02:57 Ang Chest [CT] Stat CTA Abd Pelv w Cont [CT] Stat 12/24/19 04:38 Admission Status [Patient Status] [ADT] Routine Cardiac Monitoring [RC] .As Directed - Assessment/Plan Last 24 Hours: My Active Orders 12/24/19 01:15 EKG 12 Lead [EK] Routine 12/24/19 01:45 EKG Documentation Completion [RC] ASDIRECTED 12/24/19 01:54 Chest 1V Frontal [CR] Stat Sodium Chloride 0.9% [Saline Flush] 10 ml FLUSH ASDIRECTED PRN Peripheral IV Insertion Adult [OM.PC] Routine 12/24/19 02:00 Sodium Chloride 0.9% [Normal Saline] 1,000 ml IV ASDIRECTED 12/24/19 02:49 EKG Documentation Completion [RC] ASDIRECTED EKG 12 Lead [EK] Routine 12/24/19 02:57 Ang Chest [CT] Stat CTA Abd Pelv w Cont [CT] Stat 12/24/19 04:38 Admission Status [Patient Status] [ADT] Routine Cardiac Monitoring [RC] .As Directed
[2019-12-24] MEDS ORDERED: Aspirin 81 MG Tab.Chew PO ONE (01:56)
[2019-12-24] MEDS: Sodium Chloride 0.9% 10 ML Syringe FLUSH PRN ×4 (02:20→05:01)
[2019-12-24] MEDS: Sodium Chloride 0.9% 1,000 ML IV SCH ×4 (02:20→15:11)
[2019-12-24] MEDS: Nitroglycerin 0.4 MG Tab.SL SL PRN ×3 (02:24→02:39)
[2019-12-24] MEDS ORDERED: Ondansetron 4 MG/2 ML SDV IVPUSH ONE ×2 (02:33→04:55)
[2019-12-24] MEDS ORDERED: Iopamidol 755 Mg/ML 100 ML Bottle IV ONE (03:04)
[2019-12-24] MEDS ORDERED: cefTRIAXone 2 GM Vial IVPUSH ONE (04:38)
[2019-12-24] MEDS ORDERED: Ondansetron 4 MG/2 ML SDV IV PRN (04:49)
[2019-12-24] MEDS ORDERED: Morphine 2 MG/ML Syringe IVPUSH PRN (04:49)
[2019-12-24] MEDS ORDERED: Morphine 2 MG/ML Syringe IVPUSH ONE (04:55)
[2019-12-24] MEDS: Pantoprazole 40 MG Vial IVPUSH SCH ×2 (06:21→17:43)
[2019-12-24] MEDS ORDERED: Polyethylene Glycol 3350 Powder 17 GM Packet PO PRN (08:36)
[2019-12-24] MEDS ORDERED: Acetaminophen 650 MG Tab.ER PO PRN (08:36)
--- NOTE | 2019-12-24 08:45 | PCM.HP.2 ---
H&P History of Present Illness - General Date of Service: 12/24/19 Admit Problem/Dx: Admission Diagnosis/Problem Admission Diagnosis/Problem Chest pain Source of Information: Patient History Limitations: Reports: No Limitations - History of Present Illness Initial Comments - Free Text/Narative: This is a 69-year-old female patient states she haven't some uncomfortable feelings in her chest and back for 3-4 days. Last night she started having chest pressure and her right back pain. Status pre-severe so she came into the ER. She was evaluated by Dr. Christensen. She had a chest CT, abdominal CT and pelvis CT. Showed no pathology. EKG and troponin initially were negative according to the note. Patient says the chest pain still this morning. She is requiring morphine and that's working for pain. Dr. Christensen felt was cholecystitis is a showed on CT scan. She does have right upper quadrant pain. I diet does not change the pain. She does of nausea. She denies fevers, chills, diarrhea, constipation, blood in her stool, vomiting, dysuria, pyuria, hematuria. She says was somewhat pushes on the right upper quadrant of her abdomen it does hurt. chest and right side of back Pain Score (Numeric/FACES): 6 - Related Data Allergies/Adverse Reactions: Allergies Allergy/AdvReac Type Severity Reaction Status Date / Time acetaminophen Allergy Nausea Verified 12/24/19 01:16 [From Darvocet-N 100] adhesive Allergy Itching Verified 12/24/19 01:16 amoxicillin [Amoxicillin] Allergy Itching Verified 12/24/19 01:16 cyclobenzaprine Allergy Cannot Verified 12/24/19 01:16 [Cyclobenzaprine] Remember diclofenac [Diclofenac] Allergy Cannot Verified 12/24/19 01:16 Remember doxycycline Allergy Itching Verified 12/24/19 01:16 hydrocodone Allergy Nausea Verified 12/24/19 01:16 hydromorphone [From Dilaudid] Allergy Hallucinati Verified 12/24/19 01:16 ons latex Allergy Rash Verified 12/24/19 01:16 nitrous oxide [Nitrous Oxide] Allergy Excitabilit Verified 12/24/19 01:16 y prednisone Allergy Itching Verified 12/24/19 01:16 pregabalin [From Lyrica] Allergy Confusion Verified 12/24/19 01:16 propoxyphene napsylate Allergy Nausea Verified 12/24/19 01:16 [From Darvocet-N 100] pseudoephedrine HCl Allergy Dizziness Verified 12/24/19 01:16 [From Actifed] rofecoxib [From Vioxx] Allergy Cannot Verified 12/24/19 01:16 Remember Sulfa (Sulfonamide Allergy Itching Verified 12/24/19 01:16 Antibiotics) tramadol Allergy Nausea Verified 12/24/19 01:16 triprolidine HCl Allergy Dizziness Verified 12/24/19 01:16 [From Actifed] dust mite extract Allergy Sneezing Uncoded 04/07/19 12:48 Home Medications: Home Meds Ascorbic Acid [Vitamin C with Veronika Hips] 500 mg PO DAILY 12/01/13 [History] Biotin 10 mg PO DAILY 12/01/13 [History] Cholecalciferol (Vitamin D3) [Vitamin D3] 2,000 unit PO DAILY 12/01/13 [History] Cyanocobalamin (Vitamin B-12) [Vitamin B-12] 500 mcg PO DAILY 12/01/13 [History] Lisinopril 40 mg PO DAILY 12/01/13 [History] Acetaminophen [Tylenol Arthritis Pain] 1,300 mg PO Q8H PRN 06/14/16 [History] Docusate Sodium [Colace] 200 mg PO DAILY 06/14/16 [History] Oxybutynin Chloride [Ditropan Xl] 5 mg PO BID 06/14/16 [History] Polyethylene Glycol 3350 [MiraLAX] 17 gm PO DAILY PRN 06/14/16 [History] Magnesium 250 mg PO BID 10/20/16 [History] Metoprolol Tartrate 50 mg PO BID 10/20/16 [History] Multivitamin [Daily Elsa] 1 tab PO DAILY 10/20/16 [History] Pantoprazole Sodium [Protonix] 40 mg PO BEDTIME 10/20/16 [History] Cephalexin [Keflex] 2,000 mg PO ONETIME 02/23/17 [History] Warfarin [Coumadin] 12.5 mg PO MOWEFR 02/23/17 [History] Calcium Carbonate/Vitamin D3 [Calcium 500-Vit D3 200 Tablet] 1 each PO BID 02/26 [History] Warfarin [Coumadin] 10 mg PO SUTUTHSA 04/07/19 [History] Past Medical History HEENT History: Reports: Impaired Vision Cardiovascular History: Reports: Afib, Blood Clots/VTE/DVT, High Cholesterol, Hypertension Other Cardiovascular History: DVT Respiratory History: Reports: Asthma Other Respiratory History: mild, intermittent Gastrointestinal History: Reports: Colon Polyp, GERD Other Gastrointestinal History: COLE'S ESOPHAGUS Genitourinary History: Reports: Other (See Below) Other Genitourinary History: OAB (OVERACTIVE BLADDER) HISTOLOGY AIDE History: Reports: Other (See Below) Other OB/BYN History: NULLIGRAVIDA Musculoskeletal History: Reports: Arthritis, Back Pain, Chronic, Osteoarthritis , Other (See Below) Other Musculoskeletal History: BURSITIS, LEFT KNEE OSTEOARTHRITIS, SPINAL STENOSIS, SPONDYLOLISTHESIS Neurological History: Reports: Other (See Below) Other Neuro History: SPINAL STENOSIS ET SPONDYLOLISTHESIS OF LUMBAR REGION Psychiatric History: Reports: None Endocrine/Metabolic History: Reports: Obesity/BMI 30+ Hematologic History: Reports: Anemia, Anticoagulation Therapy, Blood Transfusion (s), Other (See Below) Other Hematologic History: HX OF DVT; acute blood loss anemia secondary to surgery Immunologic History: Reports: None Oncologic (Cancer) History: Reports: None Dermatologic History: Reports: Eczema - Past Surgical History Head Surgeries/Procedures: Reports: None GI Surgical History: Reports: Bariatric Procedure, Colonoscopy, EGD, Hernia, Inguinal Other GI Surgeries/Procedures: LIH WITH EXPLORATION Neurological Surgical History: Reports: Lumbar Spine Other Neurological Surgeries/Procedures: LUMBAR FUSION Musculoskeletal Surgical History: Reports: Ganglion Cyst, Hip Replacement, Other (See Below) Other Musculoskeletal Surgeries/Procedures:: catalino. hip arthroplasties 2006 and 2007, REVISION OF LEFT TOTAL HIP ARTHROPLAST 11/20/2013, LUMBAR FUSION Social & Family History - Family History Family Medical History: Noncontributory - Tobacco Use Smoking Status *Q: Former Smoker Used Tobacco, but Quit: No Month/Year Tobacco Last Used: 10/1997 Tobacco Use Comment: quite in 1997 - Caffeine Use Caffeine Use: Reports: Coffee Other Caffeine Use: 6 cups in am Caffeine Use Comment: before surgery consuming 4 cups a day. - Alcohol Use Days Per Week of Alcohol Use: 7 Number of Drinks Per Day: 3 Total Drinks Per Week: 21 - Recreational Drug Use Recreational Drug Use: No - Living Situation & Occupation Living situation: Reports: Occupation: Retired H&P Review of Systems - Review of Systems: Review Of Systems: See Below General: Denies: Fever, Chills, Weakness HEENT: Reports: No Symptoms Pulmonary: Reports: No Symptoms. Denies: Shortness of Breath Cardiovascular: Reports: Chest Pain Gastrointestinal: Reports: Abdominal Pain, Nausea. Denies: Black Stool, Bloody Stool Genitourinary: Reports: No Symptoms Musculoskeletal: Reports: No Symptoms Skin: Reports: No Symptoms Psychiatric: Reports: No Symptoms Neurological: Reports: No Symptoms Hematologic/Lymphatic: Reports: No Symptoms Immunologic: Reports: No Symptoms Exam - Exam Exam: See Below - Vital Signs Vital Signs: Last Vital Signs Temp 98 F 12/24/19 07:15 Pulse 64 12/24/19 07:15 Resp 20 12/24/19 07:15 BP 126/62 12/24/19 07:15 Pulse Ox 99 12/24/19 07:15 Weight: 204 lb 2 oz - Exam General: Alert, Oriented, Cooperative HEENT: PERRLA, Mucosa Moist & [place], Posterior Pharynx Clear, TMs Clear Neck: Supple, Trachea Midline Lungs: Clear to Auscultation, Normal Respiratory Effort Cardiovascular: Regular Rate, Regular Rhythm. No: Irregular Rhythm, Bradycardia , Tachycardia, Systolic Murmur GI/Abdominal Exam: Normal Bowel Sounds, Soft, No Organomegaly, No Distention, No Mass, Other (Pain right upper quadrant on palpation. Solis sign positive.) Back Exam: Normal Inspection, Full Range of Motion Extremities: Normal Inspection, Non-Tender, No Pedal Edema Skin: Warm, Dry, Intact Neuro Extensive - Mental Status: Alert, Oriented x3, Normal Cognition Psychiatric: Alert - Patient Data Lab Results Last 24 hrs: Laboratory Results - last 24 hr 12/24/19 12/24/19 12/24/19 Range/Units 02:06 02:06 02:06 WBC 5.6 (4.5-12.0) X10-3/uL RBC 3.70 (3.23-5.20) x10(6)uL Hgb 12.4 (11.5-15.5) g/dL Hct 36.6 (30.0-51.3) % MCV 99.0 H (80-96) fL MCH 33.5 (27.7-33.6) pg MCHC 33.8 (32.2-35.4) g/dL RDW 12.0 (11.5-15.5) % Plt Count 266 (125-369) X10(3)uL MPV 6.3 L (7.4-10.4) fL Neut % (Auto) 74.6 (46-82) % Lymph % (Auto) 17.0 (13-37) % Hill % (Auto) 7.2 (4-12) % Eos % (Auto) 1 (1.0-5.0) % Baso % (Auto) 1 (0-2) % Neut # (Auto) 4.2 (1.6-8.3) # Lymph # (Auto) 1.0 (0.6-5.0) # Hill # (Auto) 0.4 (0.0-1.3) # Eos # (Auto) 0.0 (0.0-0.8) # Baso # (Auto) 0.0 (0.0-0.2) # PT 29.9 H (9.0-11.1) sec INR 3.11 H (1.00-1.24) D-Dimer, Quantitative 0.71 H (0.0-0.59) mg/LFEU Sodium 133 L (135-145) mmol/L Potassium 4.1 (3.5-5.3) mmol/L Chloride 96 L D (100-110) mmol/L Carbon Dioxide 29 (21-32) mmol/L BUN 13 (7-18) mg/dL Creatinine 0.8 (0.55-1.02) mg/dL Est Cr Clr Drug Dosing 55.70 mL/min Estimated GFR (MDRD) > 60 (>60) BUN/Creatinine Ratio 16.3 (9-20) Glucose 98 (80-116) mg/dL Calcium 8.9 (8.6-10.2) mg/dL Magnesium 1.8 (1.8-2.5) mg/dL Total Bilirubin 0.3 (0.1-1.3) mg/dL AST 42 H D (5-25) IU/L ALT 44 H (12-36) U/L Alkaline Phosphatase 53 L (56-112) IU/L Troponin I (4.0-60.3) pg/mL Total Protein 7.1 (6.0-8.0) g/dL Albumin 3.8 (3.2-4.6) g/dL Globulin 3.3 g/dL Albumin/Globulin Ratio 1.2 Lipase (73-393) U/L 12/24/19 12/24/19 12/24/19 Range/Units 02:06 02:06 08:10 WBC (4.5-12.0) X10-3/uL RBC (3.23-5.20) x10(6)uL Hgb (11.5-15.5) g/dL Hct (30.0-51.3) % MCV (80-96) fL MCH (27.7-33.6) pg MCHC (32.2-35.4) g/dL RDW (11.5-15.5) % Plt Count (125-369) X10(3)uL MPV (7.4-10.4) fL Neut % (Auto) (46-82) % Lymph % (Auto) (13-37) % Hill % (Auto) (4-12) % Eos % (Auto) (1.0-5.0) % Baso % (Auto) (0-2) % Neut # (Auto) (1.6-8.3) # Lymph # (Auto) (0.6-5.0) # Hill # (Auto) (0.0-1.3) # Eos # (Auto) (0.0-0.8) # Baso # (Auto) (0.0-0.2) # PT (9.0-11.1) sec INR (1.00-1.24) D-Dimer, Quantitative (0.0-0.59) mg/LFEU Sodium (135-145) mmol/L Potassium (3.5-5.3) mmol/L Chloride (100-110) mmol/L Carbon Dioxide (21-32) mmol/L BUN (7-18) mg/dL Creatinine (0.55-1.02) mg/dL Est Cr Clr Drug Dosing mL/min Estimated GFR (MDRD) (>60) BUN/Creatinine Ratio (9-20) Glucose (80-116) mg/dL Calcium (8.6-10.2) mg/dL Magnesium (1.8-2.5) mg/dL Total Bilirubin (0.1-1.3) mg/dL AST (5-25) IU/L ALT (12-36) U/L Alkaline Phosphatase (56-112) IU/L Troponin I 10.8 8.4 (4.0-60.3) pg/mL Total Protein (6.0-8.0) g/dL Albumin (3.2-4.6) g/dL Globulin g/dL Albumin/Globulin Ratio Lipase 81 (73-393) U/L Result Diagrams: 12/24/19 02:06 12/24/19 02:06 Sepsis Event Note - Evaluation Sepsis Screening Result: No Definite Risk - Focused Exam Vital Signs: Vital Signs Temp Pulse Resp BP BP Pulse Ox 12/24/19 07:15 98 F 64 20 126/62 99 12/24/19 05:32 98 F 65 20 128/65 99 12/24/19 04:53 60 15 181/63 H 100 12/24/19 04:50 99 12/24/19 04:28 60 18 98 12/24/19 03:18 57 L 17 146/65 H 96 12/24/19 02:45 63 18 122/62 95 12/24/19 02:44 62 18 125/68 97 12/24/19 02:39 125/68 12/24/19 02:34 174/75 H 12/24/19 02:32 74 14 174/75 H 100 12/24/19 02:25 63 14 168/72 H 99 12/24/19 02:24 168/72 H 12/24/19 01:03 97.4 F 67 14 187/75 H 100 Date Exam was Performed: 12/24/19 Time Exam was Performed: 08:39 - Problem List (1) Cholecystitis SNOMED Code(s): 65485163 ICD Code: K81.9 - CHOLECYSTITIS, UNSPECIFIED Status: Acute Current Visit : Yes (2) Chest pain SNOMED Code(s): 48202003 ICD Code: R07.9 - CHEST PAIN, UNSPECIFIED Status: Acute Current Visit: Yes Qualifiers: Chest pain type: unspecified Qualified Code(s): R07.9 - Chest pain, unspecified (3) Cole esophagus SNOMED Code(s): 387280146 ICD Code: K22.70 - COLE'S ESOPHAGUS WITHOUT DYSPLASIA Status: Acute Current Visit: No Qualifiers: Cole's esophagus type: without dysplasia Qualified Code(s): K22.70 - Cole's esophagus without dysplasia (4) History of gastric bypass SNOMED Code(s): 395100515 ICD Code: Z98.890 - OTHER SPECIFIED POSTPROCEDURAL STATES Status: Acute Current Visit: No Problem List Initiated/Reviewed/Updated: Yes Orders Last 24hrs: Active Orders 24 hr Category Date Time Status Admission Status [Patient Status] [ADT] Routine ADT 12/24/19 04:38 Active Anticoag Warfarin Education *Q [RC] DAILY Care 12/24/19 04:49 Active Cardiac Monitoring [RC] .As Directed Care 12/24/19 04:38 Active EKG Documentation Completion [RC] ASDIRECTED Care 12/24/19 02:49 Active EKG Documentation Completion [RC] ASDIRECTED Care 12/24/19 08:36 Ordered Height and Weight [RC] UPON Care 12/24/19 04:49 Active Intake and Output [RC] QSHIFT Care 12/24/19 04:50 Active Oxygen Therapy [RC] PRN Care 12/24/19 04:49 Active Pulse Oximetry [RC] PRN Care 12/24/19 04:50 Active Up With Assistance [RC] ASDIRECTED Care 12/24/19 04:49 Active VTE/DVT Education [RC] Per Unit Routine Care 12/24/19 04:49 Active Vital Signs [RC] Q4H Care 12/24/19 04:49 Active Nothing per Oral Now Diet [DIET] Diet 12/24/19 Breakfast Active Abdomen Ltd [US] Routine Exams 12/24/19 08:38 Ordered Ang Chest [CT] Stat Exams 12/24/19 02:57 Taken CTA Abd Pelv w Cont [CT] Stat Exams 12/24/19 02:57 Taken Chest 1V Frontal [CR] Stat Exams 12/24/19 01:54 Taken INR,PT,PROTHROMBIN TIME [COAG] DAILY Lab 12/24/19 08:45 Ordered INR,PT,PROTHROMBIN TIME [COAG] DAILY Lab 12/25/19 08:45 Ordered INR,PT,PROTHROMBIN TIME [COAG] DAILY Lab 12/26/19 08:45 Ordered INR,PT,PROTHROMBIN TIME [COAG] DAILY Lab 12/27/19 08:45 Ordered INR,PT,PROTHROMBIN TIME [COAG] DAILY Lab 12/28/19 08:45 Ordered INR,PT,PROTHROMBIN TIME [COAG] DAILY Lab 12/29/19 08:45 Ordered Acetaminophen [Tylenol Arthritis Pain] Med 12/24/19 08:36 Ordered 1,300 mg PO Q8H PRN Ascorbic Acid [Vitamin C with Veronika Hips] Med 12/24/19 09:00 Ordered 500 mg PO DAILY Biotin [Biotin] Med 12/24/19 09:00 Ordered 10 mg PO DAILY Calcium Carbonate/Vitamin D3 [Calcium 500-Vit D3 200 Med 12/24/19 09:00 Ordered Tablet] 1 each PO BID Cholecalciferol (Vitamin D3) [Vitamin D3] Med 12/24/19 09:00 Ordered 2,000 unit PO DAILY Magnesium [Magnesium] Med 12/24/19 09:00 Ordered 250 mg PO BID Metoprolol Tartrate [Lopressor] Med 12/24/19 09:00 Ordered 50 mg PO BID Morphine Med 12/24/19 04:49 Active 2 mg IVPUSH Q2H PRN Multivitamins [Tab-A-Elsa] Med 12/24/19 09:00 Ordered 1 tab PO DAILY Ondansetron [Zofran] Med 12/24/19 04:49 Active 4 mg IV Q6H PRN Oxybutynin [Oxybutynin ER] Med 12/24/19 09:00 Ordered 5 mg PO BID Pantoprazole [ProTONIX IV] Med 12/24/19 05:00 Active 40 mg IVPUSH Q12H Pantoprazole [ProTONIX] Med 12/24/19 21:00 Ordered 40 mg PO BEDTIME Sodium Chloride 0.9% [Normal Saline] 1,000 ml Med 12/24/19 05:00 Active IV ASDIRECTED Sodium Chloride 0.9% [Saline Flush] Med 12/24/19 01:54 Active 10 ml FLUSH ASDIRECTED PRN Warfarin [Coumadin] Med 12/25/19 08:36 Ordered 10 mg PO SUTUTHSA Warfarin [Coumadin] Med 12/24/19 08:45 Ordered 12.5 mg PO MOWEFR lisinopriL [Prinivil] Med 12/24/19 09:00 Ordered 40 mg PO DAILY polyethylene glycoL 3350 [MiraLAX] Med 12/24/19 08:36 Ordered 17 gm PO DAILY PRN Peripheral IV Insertion Adult [OM.PC] Routine Oth 12/24/19 01:54 Ordered Resuscitation Status Routine Resus Stat 12/24/19 04:49 Ordered EKG 12 Lead [EK] Routine Ther 12/24/19 01:15 Stop Req EKG 12 Lead [EK] Routine Ther 12/24/19 02:49 Stop Req EKG 12 Lead [EK] Routine Ther 12/24/19 08:36 Ordered Medication Orders Acetaminophen (Tylenol Arthritis Pain) 1,300 mg PO Q8H PRN PRN Reason: Pain Sodium Chloride (Normal Saline) 1,000 mls @ 100 mls/hr IV ASDIRECTED [facility] Last Admin: 12/24/19 05:10 Dose: 100 mls/hr Lisinopril (Prinivil) 40 mg PO DAILY [facility] Metoprolol Tartrate (Lopressor) 50 mg PO BID [facility] Morphine Sulfate (Morphine) 2 mg IVPUSH Q2H PRN PRN Reason: Pain Last Admin: 12/24/19 07:05 Dose: 2 mg Multivitamins/Minerals/Vitamin C (Tab-A-Elsa) 1 tab PO DAILY [facility] Non-Formulary Medication (Ascorbic Acid [Vitamin C With Veronika Hips]) 500 mg PO DAILY [facility] Non-Formulary Medication (Biotin [Biotin]) 10 mg PO DAILY [facility] Non-Formulary Medication (Calcium Carbonate/Vitamin D3 [Calcium 500-Vit D3 200 Tablet]) 1 each PO BID [facility] Non-Formulary Medication (Cholecalciferol (Vitamin D3) [Vitamin D3]) 2,000 unit PO DAILY [facility] Non-Formulary Medication (Magnesium [Magnesium]) 250 mg PO BID [facility] Non-Formulary Medication (Warfarin [Coumadin]) 10 mg PO SUTUTHSA [facility] Ondansetron HCl (Zofran) 4 mg IV Q6H PRN PRN Reason: Nausea/Vomiting Oxybutynin Chloride (Oxybutynin Er) 5 mg PO BID [facility] Pantoprazole Sodium (Protonix Iv) 40 mg IVPUSH Q12H [facility] Last Admin: 12/24/19 06:21 Dose: 40 mg Pantoprazole Sodium (Protonix) 40 mg PO BEDTIME [facility] Polyethylene Glycol (Miralax) 17 gm PO DAILY PRN PRN Reason: Constipation Sodium Chloride (Saline Flush) 10 ml FLUSH ASDIRECTED PRN PRN Reason: Keep Vein Open Last Admin: 12/24/19 05:01 Dose: 10 ml Admin: 12/24/19 04:46 Dose: 10 ml Admin: 12/24/19 02:40 Dose: 10 ml Admin: 12/24/19 02:20 Dose: 10 ml Warfarin Sodium (Coumadin) 12.5 mg PO MOWEFR [facility] Assessment/Plan Comment:: 1. Admit to observation. 2. Nothing by mouth 3. Repeat troponin and EKG. 4. Ehsan consult done. 5. Ultrasound gallbladder per Dr. Moser's request. 6.VTE prophylaxis with Coumadin. I did order Coumadin. Should not be given to Dr. Moser sees the patient. 7. Up ad alin. 8. Control pain with IV medication. 9. Full code. - Mortality Measure Prognosis:: Good
[2019-12-24] MEDS ORDERED: Non-Formulary Medication 1 Each (Calcium Carbonate/Vitamin D3 [Calcium 500-Vit D3 200 Tabl PO SCH (09:00)
[2019-12-24] MEDS ORDERED: ASCORBIC ACID 500 MG PO SCH (09:00)
[2019-12-24] MEDS ORDERED: Non-Formulary Medication 1 Each (Cholecalciferol (Vitamin D3) [Vitamin D3] 2,000 UNIT) PO SCH (09:00)
[2019-12-24] MEDS ORDERED: Non-Formulary Medication 1 Each (Biotin [Biotin] 10 MG) PO SCH (09:00)
[2019-12-24] MEDS ORDERED: Multivitamin Tab PO SCH (09:00)
[2019-12-24] MEDS ORDERED: Non-Formulary Medication 1 Each (Magnesium [Magnesium] 250 MG) PO SCH (09:00)
[2019-12-24] MEDS: Oxybutynin 5 MG Tab PO SCH ×2 (09:35→20:33)
[2019-12-24] MEDS: Metoprolol Tartrate 50 MG Tab PO SCH ×2 (09:36→20:33)
--- NOTE | 2019-12-24 10:02 | US ---
INDICATION: Cholecystitis on CT. Right upper quadrant pain. RIGHT UPPER QUADRANT/GALLBLADDER ULTRASOUND: Utilizing 2D real-time, spectral analysis, and color flow imaging, examination of the right upper quadrant abdomen was obtained 12/24/2019 - no comparisons. The gallbladder is abnormal measuring 11.3 x 5.3 x 5.3 cm with a thickened wall of approximately 6.8 mm, pericholecystic fluid, and very positive ultrasonic Solis's sign. Findings are compatible with acute cholecystitis. The common bile duct was prominent at 6.5 mm which could be normal for this age group. However, without old studies for comparison, it is difficult to exclude acute enlargement of the common bile duct. No definite choledocholithiasis was seen at this time, however. The pancreas was not adequately visualized for the most part - a small portion of the body appeared normal. The right kidney appeared normal measuring 11.1 x 4 x 4.6 cm. There is a cyst in the liver right lobe posterocranially near the diaphragm measuring 4 x 4.1 x 2.9 cm, most likely representing a benign structure. It does have some septations. No interior blood flow was noted. The IVC was phasic. Report was called to Dr. Mars at 1044 hours. [facility]
--- NOTE | 2019-12-24 10:05 | CR ---
INDICATION: Chest pain. CHEST, ONE VIEW: Portable AP upright view of the chest 12/24/2019 was compared with 04/07/2019 revealing the heart to remain normal in size and shape. The aorta is only minimally tortuous with some minimal calcifications suggested in the arch. Overlying EKG leads are noted. An active infiltrate or effusion was not identified. IMPRESSION: No acute process. MTDD
[2019-12-24] MEDS: Acetaminophen 650 MG Tab.ER PO SCH ×3 (10:08→22:18)
--- NOTE | 2019-12-24 11:59 | PCM.CONS ---
H&P History of Present Illness - General Date of Service: 12/24/19 Admit Problem/Dx: Admission Diagnosis/Problem Admission Diagnosis/Problem Chest pain - History of Present Illness Initial Comments - Free Text/Narative: 69 yo wf who presented to the ED early this am with a complaint of chest pressure as well as pain located in the side of her back. She underwent a cardiac navarro which was negative for any evidence of ischemia. Incidentally was noted to have some tenderness in the RUQ of the abdomen. CT scan did demonstrate gallstones as well as fluid collection around the gallbladder itself. The WBC was normal. LFT's noted normal bilirubin as well as an alk phos. transaminases were up. Subsequent US demonstrated thicken gallbladder wall, and a positive sonographic Solis's sign. CBD was within range of normal for her age and no stones were noted. The pt denies any fever, chills, fatty food intolerance, jaundice or acholic stools. Notes that she has been feeling a little "off" but attributed this to her GERD. chest and right side of back Pain Score (Numeric/FACES): 4 - Related Data Allergies/Adverse Reactions: Allergies Allergy/AdvReac Type Severity Reaction Status Date / Time acetaminophen Allergy Nausea Verified 12/24/19 01:16 [From Darvocet-N 100] adhesive Allergy Itching Verified 12/24/19 01:16 amoxicillin [Amoxicillin] Allergy Itching Verified 12/24/19 01:16 cyclobenzaprine Allergy Cannot Verified 12/24/19 01:16 [Cyclobenzaprine] Remember diclofenac [Diclofenac] Allergy Cannot Verified 12/24/19 01:16 Remember doxycycline Allergy Itching Verified 12/24/19 01:16 hydrocodone Allergy Nausea Verified 12/24/19 01:16 hydromorphone [From Dilaudid] Allergy Hallucinati Verified 12/24/19 01:16 ons latex Allergy Rash Verified 12/24/19 01:16 nitrous oxide [Nitrous Oxide] Allergy Excitabilit Verified 12/24/19 01:16 y prednisone Allergy Itching Verified 12/24/19 01:16 pregabalin [From Lyrica] Allergy Confusion Verified 12/24/19 01:16 propoxyphene napsylate Allergy Nausea Verified 12/24/19 01:16 [From Darvocet-N 100] pseudoephedrine HCl Allergy Dizziness Verified 12/24/19 01:16 [From Actifed] rofecoxib [From Vioxx] Allergy Cannot Verified 12/24/19 01:16 Remember Sulfa (Sulfonamide Allergy Itching Verified 12/24/19 01:16 Antibiotics) tramadol Allergy Nausea Verified 12/24/19 01:16 triprolidine HCl Allergy Dizziness Verified 12/24/19 01:16 [From Actifed] dust mite extract Allergy Sneezing Uncoded 04/07/19 12:48 Home Medications: Home Meds Ascorbic Acid [Vitamin C with Veronika Hips] 500 mg PO DAILY 12/01/13 [History] Biotin 10 mg PO DAILY 12/01/13 [History] Cholecalciferol (Vitamin D3) [Vitamin D3] 2,000 unit PO DAILY 12/01/13 [History] Cyanocobalamin (Vitamin B-12) [Vitamin B-12] 500 mcg PO DAILY 12/01/13 [History] Lisinopril 40 mg PO DAILY 12/01/13 [History] Acetaminophen [Tylenol Arthritis Pain] 1,300 mg PO Q8H PRN 06/14/16 [History] Docusate Sodium [Colace] 200 mg PO DAILY 06/14/16 [History] Polyethylene Glycol 3350 [MiraLAX] 17 gm PO DAILY PRN 06/14/16 [History] Magnesium 250 mg PO BID 10/20/16 [History] Metoprolol Tartrate 50 mg PO BID 10/20/16 [History] Multivitamin [Daily Elsa] 1 tab PO DAILY 10/20/16 [History] Pantoprazole Sodium [Protonix] 40 mg PO BEDTIME 10/20/16 [History] Cephalexin [Keflex] 2,000 mg PO ONETIME PRN 02/23/17 [History] Warfarin [Coumadin] 12.5 mg PO MOFR 02/23/17 [History] Calcium Carbonate/Vitamin D3 [Calcium 500-Vit D3 200 Tablet] 1 each PO BID 02/26 [History] Warfarin [Coumadin] 10 mg PO SUTUWETHSA 04/07/19 [History] Oxybutynin 5 mg PO BID 12/24/19 [History] Past Medical History HEENT History: Reports: Impaired Vision Cardiovascular History: Reports: Afib, Blood Clots/VTE/DVT, High Cholesterol, Hypertension Other Cardiovascular History: DVT Respiratory History: Reports: Asthma Other Respiratory History: mild, intermittent Gastrointestinal History: Reports: Colon Polyp, GERD Other Gastrointestinal History: COLE'S ESOPHAGUS Genitourinary History: Reports: Other (See Below) Other Genitourinary History: OAB (OVERACTIVE BLADDER) 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: Other (See Below) Other OB/BYN History: NULLIGRAVIDA Musculoskeletal History: Reports: Arthritis, Back Pain, Chronic, Osteoarthritis , Other (See Below) Other Musculoskeletal History: BURSITIS, LEFT KNEE OSTEOARTHRITIS, SPINAL STENOSIS, SPONDYLOLISTHESIS Neurological History: Reports: Other (See Below) Other Neuro History: SPINAL STENOSIS ET SPONDYLOLISTHESIS OF LUMBAR REGION Psychiatric History: Reports: None Endocrine/Metabolic History: Reports: Obesity/BMI 30+ Hematologic History: Reports: Anemia, Anticoagulation Therapy, Blood Transfusion (s), Other (See Below) Other Hematologic History: HX OF DVT; acute blood loss anemia secondary to surgery Immunologic History: Reports: None Oncologic (Cancer) History: Reports: None Dermatologic History: Reports: Eczema - Past Surgical History Head Surgeries/Procedures: Reports: None GI Surgical History: Reports: Bariatric Procedure, Colonoscopy, EGD, Hernia, Inguinal Other GI Surgeries/Procedures: LIH WITH EXPLORATION Neurological Surgical History: Reports: Lumbar Spine Other Neurological Surgeries/Procedures: LUMBAR FUSION Musculoskeletal Surgical History: Reports: Ganglion Cyst, Hip Replacement, Other (See Below) Other Musculoskeletal Surgeries/Procedures:: catalino. hip arthroplasties 2006 and 2007, REVISION OF LEFT TOTAL HIP ARTHROPLAST 11/20/2013, LUMBAR FUSION Social & Family History - Family History Family Medical History: Noncontributory - Tobacco Use Smoking Status *Q: Former Smoker Used Tobacco, but Quit: No Month/Year Tobacco Last Used: 10/1997 Tobacco Use Comment: quite in 1997 - Caffeine Use Caffeine Use: Reports: Coffee Other Caffeine Use: 6 cups in am Caffeine Use Comment: before surgery consuming 4 cups a day. - Alcohol Use Days Per Week of Alcohol Use: 7 Number of Drinks Per Day: 3 Total Drinks Per Week: 21 - Recreational Drug Use Recreational Drug Use: No - Living Situation & Occupation Living situation: Reports: Occupation: Retired H&P Review of Systems - Review of Systems: Review Of Systems: See Below General: Denies: Fever, Chills, Malaise, Night Sweats, Decreased Appetite HEENT: Reports: No Symptoms Pulmonary: Reports: No Symptoms Cardiovascular: Reports: Chest Pain Gastrointestinal: Reports: Abdominal Pain. Denies: Difficulty Swallowing, Distension, Nausea, Vomiting Genitourinary: Reports: No Symptoms Musculoskeletal: Reports: Back Pain Skin: Denies: Jaundice Neurological: Reports: No Symptoms Hematologic/Lymphatic: Reports: Easy Bleeding, Easy Bruising (on coumadin ) Exam - Exam Exam: See Below - Vital Signs Vital Signs: Last Vital Signs Temp 97.6 F 12/24/19 08:00 Pulse 66 12/24/19 09:36 Resp 17 12/24/19 08:00 BP 159/79 H 12/24/19 09:36 Pulse Ox 98 12/24/19 08:00 Weight: 92.59 kg - Exam General: Alert, Oriented, Cooperative. No: Mild Distress Lungs: Clear to Auscultation, Normal Respiratory Effort Cardiovascular: Regular Rate, Regular Rhythm GI/Abdominal Exam: Normal Bowel Sounds, Soft, Tender (mild tenderness to the ruq ) Back Exam: Normal Inspection Skin: Warm, Dry, Intact - Patient Data Lab Results Last 24 hrs: Laboratory Results - last 24 hr 12/24/19 12/24/19 12/24/19 Range/Units 02:06 02:06 02:06 WBC 5.6 (4.5-12.0) X10-3/uL RBC 3.70 (3.23-5.20) x10(6)uL Hgb 12.4 (11.5-15.5) g/dL Hct 36.6 (30.0-51.3) % MCV 99.0 H (80-96) fL MCH 33.5 (27.7-33.6) pg MCHC 33.8 (32.2-35.4) g/dL RDW 12.0 (11.5-15.5) % Plt Count 266 (125-369) X10(3)uL MPV 6.3 L (7.4-10.4) fL Neut % (Auto) 74.6 (46-82) % Lymph % (Auto) 17.0 (13-37) % Pierce % (Auto) 7.2 (4-12) % Eos % (Auto) 1 (1.0-5.0) % Baso % (Auto) 1 (0-2) % Neut # (Auto) 4.2 (1.6-8.3) # Lymph # (Auto) 1.0 (0.6-5.0) # Pierce # (Auto) 0.4 (0.0-1.3) # Eos # (Auto) 0.0 (0.0-0.8) # Baso # (Auto) 0.0 (0.0-0.2) # PT 29.9 H (9.0-11.1) sec INR 3.11 H (1.00-1.24) D-Dimer, Quantitative 0.71 H (0.0-0.59) mg/LFEU Sodium 133 L (135-145) mmol/L Potassium 4.1 (3.5-5.3) mmol/L Chloride 96 L D (100-110) mmol/L Carbon Dioxide 29 (21-32) mmol/L BUN 13 (7-18) mg/dL Creatinine 0.8 (0.55-1.02) mg/dL Est Cr Clr Drug Dosing 55.70 mL/min Estimated GFR (MDRD) > 60 (>60) BUN/Creatinine Ratio 16.3 (9-20) Glucose 98 (80-116) mg/dL Calcium 8.9 (8.6-10.2) mg/dL Magnesium 1.8 (1.8-2.5) mg/dL Total Bilirubin 0.3 (0.1-1.3) mg/dL AST 42 H D (5-25) IU/L ALT 44 H (12-36) U/L Alkaline Phosphatase 53 L (56-112) IU/L Troponin I (4.0-60.3) pg/mL Total Protein 7.1 (6.0-8.0) g/dL Albumin 3.8 (3.2-4.6) g/dL Globulin 3.3 g/dL Albumin/Globulin Ratio 1.2 Lipase (73-393) U/L 12/24/19 12/24/19 12/24/19 Range/Units 02:06 02:06 08:10 WBC (4.5-12.0) X10-3/uL RBC (3.23-5.20) x10(6)uL Hgb (11.5-15.5) g/dL Hct (30.0-51.3) % MCV (80-96) fL MCH (27.7-33.6) pg MCHC (32.2-35.4) g/dL RDW (11.5-15.5) % Plt Count (125-369) X10(3)uL MPV (7.4-10.4) fL Neut % (Auto) (46-82) % Lymph % (Auto) (13-37) % Pierce % (Auto) (4-12) % Eos % (Auto) (1.0-5.0) % Baso % (Auto) (0-2) % Neut # (Auto) (1.6-8.3) # Lymph # (Auto) (0.6-5.0) # Pierce # (Auto) (0.0-1.3) # Eos # (Auto) (0.0-0.8) # Baso # (Auto) (0.0-0.2) # PT (9.0-11.1) sec INR (1.00-1.24) D-Dimer, Quantitative (0.0-0.59) mg/LFEU Sodium (135-145) mmol/L Potassium (3.5-5.3) mmol/L Chloride (100-110) mmol/L Carbon Dioxide (21-32) mmol/L BUN (7-18) mg/dL Creatinine (0.55-1.02) mg/dL Est Cr Clr Drug Dosing mL/min Estimated GFR (MDRD) (>60) BUN/Creatinine Ratio (9-20) Glucose (80-116) mg/dL Calcium (8.6-10.2) mg/dL Magnesium (1.8-2.5) mg/dL Total Bilirubin (0.1-1.3) mg/dL AST (5-25) IU/L ALT (12-36) U/L Alkaline Phosphatase (56-112) IU/L Troponin I 10.8 8.4 (4.0-60.3) pg/mL Total Protein (6.0-8.0) g/dL Albumin (3.2-4.6) g/dL Globulin g/dL Albumin/Globulin Ratio Lipase 81 (73-393) U/L 12/24/19 Range/Units 08:59 WBC (4.5-12.0) X10-3/uL RBC (3.23-5.20) x10(6)uL Hgb (11.5-15.5) g/dL Hct (30.0-51.3) % MCV (80-96) fL MCH (27.7-33.6) pg MCHC (32.2-35.4) g/dL RDW (11.5-15.5) % Plt Count (125-369) X10(3)uL MPV (7.4-10.4) fL Neut % (Auto) (46-82) % Lymph % (Auto) (13-37) % Pierce % (Auto) (4-12) % Eos % (Auto) (1.0-5.0) % Baso % (Auto) (0-2) % Neut # (Auto) (1.6-8.3) # Lymph # (Auto) (0.6-5.0) # Pierce # (Auto) (0.0-1.3) # Eos # (Auto) (0.0-0.8) # Baso # (Auto) (0.0-0.2) # PT 34.8 H (9.0-11.1) sec INR 3.64 H (1.00-1.24) D-Dimer, Quantitative (0.0-0.59) mg/LFEU Sodium (135-145) mmol/L Potassium (3.5-5.3) mmol/L Chloride (100-110) mmol/L Carbon Dioxide (21-32) mmol/L BUN (7-18) mg/dL Creatinine (0.55-1.02) mg/dL Est Cr Clr Drug Dosing mL/min Estimated GFR (MDRD) (>60) BUN/Creatinine Ratio (9-20) Glucose (80-116) mg/dL Calcium (8.6-10.2) mg/dL Magnesium (1.8-2.5) mg/dL Total Bilirubin (0.1-1.3) mg/dL AST (5-25) IU/L ALT (12-36) U/L Alkaline Phosphatase (56-112) IU/L Troponin I (4.0-60.3) pg/mL Total Protein (6.0-8.0) g/dL Albumin (3.2-4.6) g/dL Globulin g/dL Albumin/Globulin Ratio Lipase (73-393) U/L Result Diagrams: 12/24/19 02:06 12/24/19 02:06 Sepsis Event Note - Evaluation Sepsis Screening Result: No Definite Risk - Focused Exam Vital Signs: Vital Signs Temp Pulse Pulse Resp BP BP Pulse Ox 12/24/19 09:36 66 159/79 H 12/24/19 08:00 97.6 F 66 17 159/79 H 98 12/24/19 07:15 98 F 64 20 126/62 99 12/24/19 05:32 98 F 65 20 128/65 99 12/24/19 04:53 60 15 181/63 H 100 12/24/19 04:50 99 12/24/19 04:28 60 18 98 12/24/19 03:18 57 L 17 146/65 H 96 12/24/19 02:45 63 18 122/62 95 12/24/19 02:44 62 18 125/68 97 12/24/19 02:39 125/68 12/24/19 02:34 174/75 H 12/24/19 02:32 74 14 174/75 H 100 12/24/19 02:25 63 14 168/72 H 99 12/24/19 02:24 168/72 H 12/24/19 01:03 97.4 F 67 14 187/75 H 100 Date Exam was Performed: 12/24/19 Time Exam was Performed: 11:53 *Q Meaningful Use (ADM) - VTE *Q VTE Pharmacological Contraindications *Q: High INR Value Consult PN Assessment/Plan Procedures: Procedures ALANINE AMINO (ALT) (SGPT) (11/23/16) ANESTH ANORECTAL SURGERY (02/26/17) ANESTH LOW INTESTINE SCOPE (02/27/17) ASSAY OF CK (CPK) (11/23/16) ASSAY OF CREATININE (11/23/16) ASSAY OF MAGNESIUM (04/07/19) ASSAY OF NATRIURETIC PEPTIDE (04/07/19) ASSAY OF TROPONIN QUANT (04/07/19) C-REACTIVE PROTEIN (11/23/16) COLONOSCOPY AND BIOPSY (02/27/17) COMPLETE CBC W/AUTO DIFF WBC (04/07/19) COMPREHEN METABOLIC PANEL (04/07/19) CT LUMBAR SPINE W/O DYE (02/21/16) EGD BIOPSY SINGLE/MULTIPLE (02/26/17) ELECTROCARDIOGRAM TRACING (04/07/19) EMERGENCY DEPT VISIT (04/07/19) EXTREMITY STUDY (02/02/17) HYDRATE IV INFUSION ADD-ON (04/07/19) MANUAL THERAPY 1/> REGIONS (07/12/16) PROTHROMBIN TIME (04/07/19) PT EVALUATION (06/08/16) RBC SED RATE NONAUTOMATED (11/23/16) ROUTINE VENIPUNCTURE (04/07/19) SPECIAL STAINS GROUP 2 (02/26/17) THER/PROPH/DIAG INJ IV PUSH (04/07/19) THER/PROPH/DIAG IV INF INIT (03/06/17) THERAPEUTIC EXERCISES (08/17/16) TISSUE EXAM BY PATHOLOGIST (02/27/17) TX/PRO/DX INJ NEW DRUG ADDON (04/07/19) TX/PROPH/DG ADDL SEQ IV INF (03/06/17) X-RAY EXAM CHEST 1 VIEW (04/07/19) X-RAY XM ESOPHAGUS 1CNTRST (07/24/16) (1) Cholelithiasis and acute cholecystitis without obstruction Current Visit: Yes Assessment:: Unusual presentation clinically. Also would expect elevated WBC. PE and xray study are consistent with the diagnosis. (2) History of gastric bypass SNOMED Code(s): 764694736 Code(s): Z98.890 - OTHER SPECIFIED POSTPROCEDURAL STATES Current Visit: No (3) Hypertension SNOMED Code(s): 06128175 Code(s): I10 - ESSENTIAL (PRIMARY) HYPERTENSION Current Visit: No Qualifiers: Hypertension type: essential hypertension Qualified Code(s): I10 - Essential (primary) hypertension (4) Paroxysmal atrial fibrillation SNOMED Code(s): 297163964 Code(s): I48.0 - PAROXYSMAL ATRIAL FIBRILLATION Current Visit: No Assessment:: anticoagulated (5) Chest pain SNOMED Code(s): 65838936 Code(s): R07.9 - CHEST PAIN, UNSPECIFIED Current Visit: Yes Qualifiers: Chest pain type: unspecified Qualified Code(s): R07.9 - Chest pain, unspecified Assessment:: cardiac navarro to date is negative. Problem List Initiated/Reviewed/Updated: Yes Plan: Case discussed with Dr. Mars who is considering a stress test at this point. The gallstones represent more of an urgency than an emergency at this point. Will start antibiotics and reassess in terms of timing of surgery.
[2019-12-24] MEDS: cefOXitin 1 GM Vial IVPUSH SCH ×2 (13:09→20:32)
[2019-12-24] MEDS ORDERED: Warfarin Sliding Scale PO SCH (16:00)
[2019-12-24] MEDS ORDERED: Pantoprazole 40 MG Tab.CR PO SCH (21:00)
[2019-12-25] MEDS: Sodium Chloride 0.9% 1,000 ML IV SCH ×2 (01:07→13:39)
[2019-12-25] MEDS: cefOXitin 1 GM Vial IVPUSH SCH ×3 (03:35→22:00)
[2019-12-25] MEDS: Pantoprazole 40 MG Vial IVPUSH SCH ×2 (05:30→20:23)
--- NOTE | 2019-12-25 08:35 | PCM.SURGPN ---
- General Info Date of Service: 12/25/19 - Review of Systems Gastrointestinal: Reports: Abdominal Pain (has increased. ) - Patient Data Vitals - Most Recent: Last Vital Signs Temp 97.7 F 12/25/19 04:00 Pulse 70 12/25/19 04:00 Resp 18 12/25/19 04:00 BP 157/77 H 12/25/19 04:00 Pulse Ox 96 12/25/19 05:00 Weight - Most Recent: 92.59 kg I&O - Last 24 Hours: Intake & Output 12/24/19 12/25/19 12/25/19 22:59 06:59 14:59 Intake Total 1300 1088 Output Total 1200 900 Balance 100 188 Lab Results Last 24 Hrs: Laboratory Results - last 24 hr 12/24/19 12/24/19 12/25/19 Range/Units 08:10 08:59 06:40 WBC (4.5-12.0) X10-3/uL RBC (3.23-5.20) x10(6)uL Hgb (11.5-15.5) g/dL Hct (30.0-51.3) % MCV (80-96) fL MCH (27.7-33.6) pg MCHC (32.2-35.4) g/dL RDW (11.5-15.5) % Plt Count (125-369) X10(3)uL MPV (7.4-10.4) fL Add Manual Diff Neutrophils % (Manual) (46-82) % Band Neutrophils % (0-6) % Lymphocytes % (Manual) (13-37) % Monocytes % (Manual) (4-12) % Toxic Granulation (NOT SEEN) PT 34.8 H 36.6 H* (9.0-11.1) sec INR 3.64 H 3.82 H (1.00-1.24) Sodium (135-145) mmol/L Potassium (3.5-5.3) mmol/L Chloride (100-110) mmol/L Carbon Dioxide (21-32) mmol/L BUN (7-18) mg/dL Creatinine (0.55-1.02) mg/dL Est Cr Clr Drug Dosing mL/min Estimated GFR (MDRD) (>60) BUN/Creatinine Ratio (9-20) Glucose (80-116) mg/dL Calcium (8.6-10.2) mg/dL Total Bilirubin (0.1-1.3) mg/dL AST (5-25) IU/L ALT (12-36) U/L Alkaline Phosphatase (56-112) IU/L Troponin I 8.4 (4.0-60.3) pg/mL Total Protein (6.0-8.0) g/dL Albumin (3.2-4.6) g/dL Globulin g/dL Albumin/Globulin Ratio 12/25/19 12/25/19 12/25/19 Range/Units 06:40 06:40 06:40 WBC 8.4 (4.5-12.0) X10-3/uL RBC 3.50 (3.23-5.20) x10(6)uL Hgb 11.9 (11.5-15.5) g/dL Hct 34.3 (30.0-51.3) % MCV 98.1 H (80-96) fL MCH 34.1 H (27.7-33.6) pg MCHC 34.8 (32.2-35.4) g/dL RDW 12.4 (11.5-15.5) % Plt Count 247 (125-369) X10(3)uL MPV 6.7 L (7.4-10.4) fL Add Manual Diff Yes Neutrophils % (Manual) 84 H (46-82) % Band Neutrophils % 1 (0-6) % Lymphocytes % (Manual) 11 L (13-37) % Monocytes % (Manual) 4 (4-12) % Toxic Granulation Few H (NOT SEEN) PT (9.0-11.1) sec INR (1.00-1.24) Sodium 138 (135-145) mmol/L Potassium 4.4 (3.5-5.3) mmol/L Chloride 102 D (100-110) mmol/L Carbon Dioxide 28 (21-32) mmol/L BUN 6 L (7-18) mg/dL Creatinine 0.7 (0.55-1.02) mg/dL Est Cr Clr Drug Dosing 66.33 mL/min Estimated GFR (MDRD) > 60 (>60) BUN/Creatinine Ratio 8.6 L (9-20) Glucose 118 H (80-116) mg/dL Calcium 8.1 L (8.6-10.2) mg/dL Total Bilirubin 1.1 (0.1-1.3) mg/dL AST 377 H* D (5-25) IU/L ALT 335 H* D (12-36) U/L Alkaline Phosphatase 150 H (56-112) IU/L Troponin I 6.4 (4.0-60.3) pg/mL Total Protein 6.4 (6.0-8.0) g/dL Albumin 3.0 L (3.2-4.6) g/dL Globulin 3.4 g/dL Albumin/Globulin Ratio 0.9 Med Orders - Current: Current Medications Acetaminophen (Tylenol Arthritis Pain) 1,300 mg PO TID [facility] Last Admin: 12/24/19 22:18 Dose: 1,300 mg Cefoxitin Sodium (Mefoxin) 1 gm IVPUSH Q8H [facility] Last Admin: 12/25/19 03:35 Dose: 1 gm Sodium Chloride (Normal Saline) 1,000 mls @ 100 mls/hr IV ASDIRECTED [facility] Last Admin: 12/25/19 01:07 Dose: 100 mls/hr Sodium Chloride (Normal Saline) 250 mls @ 100 mls/hr IV ASDIRECTED [facility] Lisinopril (Prinivil) 40 mg PO DAILY [facility] Last Admin: 12/24/19 09:35 Dose: 40 mg Metoprolol Tartrate (Lopressor) 50 mg PO BID [facility] Last Admin: 12/24/19 20:33 Dose: 50 mg Morphine Sulfate (Morphine) 4 mg IVPUSH Q2H PRN PRN Reason: PAIN Last Admin: 12/25/19 05:38 Dose: 4 mg Multivitamins/Minerals/Vitamin C (Tab-A-Elsa) 1 tab PO DAILY [facility] Non-Formulary Medication (Ascorbic Acid [Vitamin C With Veronika Hips]) 500 mg PO DAILY [facility] Non-Formulary Medication (Biotin [Biotin]) 10 mg PO DAILY [facility] Non-Formulary Medication (Calcium Carbonate/Vitamin D3 [Calcium 500-Vit D3 200 Tablet]) 1 each PO BID [facility] Non-Formulary Medication (Cholecalciferol (Vitamin D3) [Vitamin D3]) 2,000 unit PO DAILY [facility] Non-Formulary Medication (Magnesium [Magnesium]) 250 mg PO BID [facility] Ondansetron HCl (Zofran) 4 mg IV Q6H PRN PRN Reason: Nausea/Vomiting Oxybutynin Chloride (Oxybutynin) 5 mg PO BID [facility] Last Admin: 12/24/19 20:33 Dose: 5 mg Pantoprazole Sodium (Protonix Iv) 40 mg IVPUSH Q12H [facility] Last Admin: 12/25/19 05:30 Dose: 40 mg Pantoprazole Sodium (Protonix) 40 mg PO BEDTIME [facility] Last Admin: 12/24/19 20:34 Dose: 40 mg Polyethylene Glycol (Miralax) 17 gm PO DAILY PRN PRN Reason: Constipation Sodium Chloride (Saline Flush) 10 ml FLUSH ASDIRECTED PRN PRN Reason: Keep Vein Open Last Admin: 12/24/19 05:01 Dose: 10 ml Warfarin Sodium (Coumadin Sliding Scale) 1 each PO 1600 [facility] Discontinued Medications Acetaminophen (Tylenol Arthritis Pain) 1,300 mg PO Q8H PRN PRN Reason: Pain Acetaminophen (Tylenol Arthritis Pain) 1,300 mg PO Q8H [facility] Last Admin: 12/24/19 17:48 Dose: 1,300 mg Aspirin (Aspirin) 324 mg PO ONETIME ONE Stop: 12/24/19 01:57 Last Admin: 12/24/19 02:21 Dose: 324 mg Ceftriaxone Sodium (Rocephin) 1 gm IVPUSH ONETIME ONE Stop: 12/24/19 04:39 Last Admin: 12/24/19 04:44 Dose: 1 gm Sodium Chloride (Normal Saline) 1,000 mls @ 0 mls/hr IV ASDIRECTED [facility] Stop: 12/28/19 01:57 Last Admin: 12/24/19 05:33 Dose: 100 mls/hr Iopamidol (Isovue-370 (76%)) 100 ml IV . DIRECTED ONE Stop: 12/24/19 03:05 Last Admin: 12/24/19 03:42 Dose: 100 ml Morphine Sulfate (Morphine) 2 mg IVPUSH Q2H PRN PRN Reason: Pain Last Admin: 12/24/19 07:05 Dose: 2 mg Morphine Sulfate (Morphine) 4 mg IVPUSH ONETIME ONE Stop: 12/24/19 04:56 Last Admin: 12/24/19 04:59 Dose: 4 mg Nitroglycerin (Nitrostat) 0.4 mg SL Q5M PRN PRN Reason: Chest Pain Last Admin: 12/24/19 02:39 Dose: 0.4 mg Ondansetron HCl (Zofran) 4 mg IVPUSH ONETIME ONE Stop: 12/24/19 02:34 Last Admin: 12/24/19 02:36 Dose: 4 mg Ondansetron HCl (Zofran) 4 mg IVPUSH ONETIME ONE Stop: 12/24/19 04:56 Last Admin: 12/24/19 04:59 Dose: 4 mg - Exam General: Alert, Oriented, Mild Distress Lungs: Clear to Auscultation, Normal Respiratory Effort Cardiovascular: Regular Rate, Regular Rhythm GI/Abdominal Exam: Normal Bowel Sounds, Tender (ruq) Sepsis Event Note - Evaluation Sepsis Screening Result: No Definite Risk - Focused Exam Vital Signs: Vital Signs Temp Pulse Pulse Resp BP BP Pulse Ox 12/25/19 05:00 12/25/19 04:50 96 12/25/19 04:00 97.7 F 70 18 157/77 H 96 12/25/19 00:00 97.7 F 66 18 144/75 H 97 12/24/19 20:33 73 153/70 H Pulse Ox 12/25/19 05:00 96 12/25/19 04:50 12/25/19 04:00 12/25/19 00:00 12/24/19 20:33 Date Exam was Performed: 12/25/19 Time Exam was Performed: 08:32 - Problem List & Annotations (1) Cholelithiasis and acute cholecystitis without obstruction Status: Acute Current Visit: Yes (2) History of gastric bypass SNOMED Code(s): 762153070 Code(s): Z98.890 - OTHER SPECIFIED POSTPROCEDURAL STATES Status: Acute Current Visit: No (3) Hypertension SNOMED Code(s): 68619388 Code(s): I10 - ESSENTIAL (PRIMARY) HYPERTENSION Status: Acute Current Visit: No Qualifiers: Hypertension type: essential hypertension Qualified Code(s): I10 - Essential (primary) hypertension (4) Paroxysmal atrial fibrillation SNOMED Code(s): 644200958 Code(s): I48.0 - PAROXYSMAL ATRIAL FIBRILLATION Status: Acute Current Visit: No (5) Chest pain SNOMED Code(s): 52241705 Code(s): R07.9 - CHEST PAIN, UNSPECIFIED Status: Acute Current Visit: Yes Qualifiers: Chest pain type: unspecified Qualified Code(s): R07.9 - Chest pain, unspecified - Problem List Review Problem List Initiated/Reviewed/Updated: Yes - My Orders Last 24 Hours: Active Orders 24 hr Category Date Time Status EKG Documentation Completion [RC] ASDIRECTED Care 12/25/19 05:58 Active Notify Provider Consults [RC] ASDIRECTED Care 12/24/19 08:47 Active Verify Patient Consent Obtain [RC] ASDIRECTED Care 12/25/19 08:30 Ordered Consult to Physician [CONS] Routine Cons 12/24/19 08:47 Ordered Low Fat Diet [DIET] Diet 12/24/19 Dinner Active NPO Now [Nothing per Oral Now Diet] [DIET] Diet 12/25/19 Lunch Ordered FRESH FROZEN PLASMA [BBK] Routine Lab 12/25/19 08:28 Ordered INR,PT,PROTHROMBIN TIME [COAG] DAILY Lab 12/26/19 08:45 Ordered INR,PT,PROTHROMBIN TIME [COAG] DAILY Lab 12/27/19 08:45 Ordered INR,PT,PROTHROMBIN TIME [COAG] DAILY Lab 12/28/19 08:45 Ordered INR,PT,PROTHROMBIN TIME [COAG] DAILY Lab 12/29/19 08:45 Ordered INR,PT,PROTHROMBIN TIME [COAG] Routine Lab 12/25/19 08:31 Ordered Acetaminophen [Tylenol Arthritis Pain] Med 12/24/19 21:30 Active 1,300 mg PO TID Ascorbic Acid [Vitamin C with Veronika Hips] Med 12/24/19 09:00 Hold 500 mg PO DAILY Biotin [Biotin] Med 12/24/19 09:00 Hold 10 mg PO DAILY Calcium Carbonate/Vitamin D3 [Calcium 500-Vit D3 200 Med 12/24/19 09:00 Hold Tablet] 1 each PO BID Cholecalciferol (Vitamin D3) [Vitamin D3] Med 12/24/19 09:00 Hold 2,000 unit PO DAILY Magnesium [Magnesium] Med 12/24/19 09:00 Hold 250 mg PO BID Metoprolol Tartrate [Lopressor] Med 12/24/19 09:00 Active 50 mg PO BID Morphine Sulfate [Morphine] Med 12/24/19 09:15 Active 4 mg IVPUSH Q2H PRN Multivitamins [Tab-A-Elsa] Med 12/24/19 09:00 Hold 1 tab PO DAILY Oxybutynin Med 12/24/19 09:00 Active 5 mg PO BID Pantoprazole [ProTONIX] Med 12/24/19 21:00 Active 40 mg PO BEDTIME Sodium Chloride 0.9% [Normal Saline] 250 ml Med 12/25/19 08:30 Ordered IV ASDIRECTED Warfarin Sliding Scale [Coumadin Sliding Scale] Med 12/24/19 16:00 Pending 1 each PO 1600 cefOXitin [Mefoxin] Med 12/24/19 12:30 Active 1 gm IVPUSH Q8H lisinopriL [Prinivil] Med 12/24/19 09:00 Active 40 mg PO DAILY polyethylene glycoL 3350 [MiraLAX] Med 12/24/19 08:36 Active 17 gm PO DAILY PRN Transfuse Fresh Frozen Plasma [COMM] Stat Oth 12/25/19 08:28 Ordered EKG 12 Lead [EK] Routine Ther 12/24/19 08:36 Ordered EKG 12 Lead [EK] Routine Ther 12/25/19 06:00 Ordered Medication Orders Acetaminophen (Tylenol Arthritis Pain) 1,300 mg PO TID [facility] Last Admin: 12/24/19 22:18 Dose: 1,300 mg Cefoxitin Sodium (Mefoxin) 1 gm IVPUSH Q8H [facility] Last Admin: 12/25/19 03:35 Dose: 1 gm Admin: 12/24/19 20:32 Dose: 1 gm Admin: 12/24/19 13:09 Dose: 1 gm Sodium Chloride (Normal Saline) 1,000 mls @ 100 mls/hr IV ASDIRECTED [facility] Last Admin: 12/25/19 01:07 Dose: 100 mls/hr Infusion: 12/25/19 01:07 Dose: 100 mls/hr Admin: 12/24/19 15:11 Dose: 100 mls/hr Infusion: 12/24/19 15:10 Dose: 100 mls/hr Admin: 12/24/19 05:10 Dose: 100 mls/hr Sodium Chloride (Normal Saline) 250 mls @ 100 mls/hr IV ASDIRECTED [facility] Lisinopril (Prinivil) 40 mg PO DAILY [facility] Last Admin: 12/24/19 09:35 Dose: 40 mg Metoprolol Tartrate (Lopressor) 50 mg PO BID [facility] Last Admin: 12/24/19 20:33 Dose: 50 mg Admin: 12/24/19 09:36 Dose: 50 mg Morphine Sulfate (Morphine) 4 mg IVPUSH Q2H PRN PRN Reason: PAIN Last Admin: 12/25/19 05:38 Dose: 4 mg Admin: 12/25/19 03:33 Dose: 4 mg Admin: 12/24/19 23:21 Dose: 4 mg Admin: 12/24/19 09:19 Dose: 4 mg Multivitamins/Minerals/Vitamin C (Tab-A-Elsa) 1 tab PO DAILY [facility] Non-Formulary Medication (Ascorbic Acid [Vitamin C With Veronika Hips]) 500 mg PO DAILY [facility] Non-Formulary Medication (Biotin [Biotin]) 10 mg PO DAILY [facility] Non-Formulary Medication (Calcium Carbonate/Vitamin D3 [Calcium 500-Vit D3 200 Tablet]) 1 each PO BID [facility] Non-Formulary Medication (Cholecalciferol (Vitamin D3) [Vitamin D3]) 2,000 unit PO DAILY [facility] Non-Formulary Medication (Magnesium [Magnesium]) 250 mg PO BID [facility] Ondansetron HCl (Zofran) 4 mg IV Q6H PRN PRN Reason: Nausea/Vomiting Oxybutynin Chloride (Oxybutynin) 5 mg PO BID [facility] Last Admin: 12/24/19 20:33 Dose: 5 mg Admin: 12/24/19 09:35 Dose: 5 mg Pantoprazole Sodium (Protonix Iv) 40 mg IVPUSH Q12H [facility] Last Admin: 12/25/19 05:30 Dose: 40 mg Admin: 12/24/19 17:43 Dose: 40 mg Admin: 12/24/19 06:21 Dose: 40 mg Pantoprazole Sodium (Protonix) 40 mg PO BEDTIME [facility] Last Admin: 12/24/19 20:34 Dose: 40 mg Polyethylene Glycol (Miralax) 17 gm PO DAILY PRN PRN Reason: Constipation Sodium Chloride (Saline Flush) 10 ml FLUSH ASDIRECTED PRN PRN Reason: Keep Vein Open Last Admin: 12/24/19 05:01 Dose: 10 ml Admin: 12/24/19 04:46 Dose: 10 ml Admin: 12/24/19 02:40 Dose: 10 ml Admin: 12/24/19 02:20 Dose: 10 ml Warfarin Sodium (Coumadin Sliding Scale) 1 each PO 1600 [facility] - Assessment Assessment (Free Text/Narrative):: exam is worse lfts as well. cardiac parameters are normal will correct INR proceed with surgery. risks and procedures discussed with the patient to include bleeding infection injury to bowel bladder blood vessel as well as common duct. need to open also discussed. She asks us to proceed.
[2019-12-25] MEDS: Metoprolol Tartrate 50 MG Tab PO SCH ×2 (08:49→21:03)
[2019-12-25] MEDS: Oxybutynin 5 MG Tab PO SCH (08:51)
[2019-12-25] MEDS: Acetaminophen 650 MG Tab.ER PO SCH ×2 (08:52→13:40)
--- NOTE | 2019-12-25 08:58 | PCM.PN ---
- General Info Date of Service: 12/25/19 Admission Dx/Problem (Free Text): Patient states that her abdominal pain right upper quadrant has become worse overnight. She denies any chest pain or back pain. Denies nausea, vomiting, diarrhea or fevers. - Patient Data Vitals - Most Recent: Last Vital Signs Temp 97.7 F 12/25/19 04:00 Pulse 69 12/25/19 08:49 Resp 18 12/25/19 04:00 BP 147/74 H 12/25/19 08:49 Pulse Ox 96 12/25/19 05:00 Weight - Most Recent: 204 lb 2 oz I&O - Last 24 Hours: Intake & Output 12/24/19 12/25/19 12/25/19 22:59 06:59 14:59 Intake Total 1300 1088 Output Total 1200 900 Balance 100 188 Lab Results Last 24 Hours: Laboratory Results - last 24 hr 12/24/19 12/25/19 12/25/19 Range/Units 08:59 06:40 06:40 WBC 8.4 (4.5-12.0) X10-3/uL RBC 3.50 (3.23-5.20) x10(6)uL Hgb 11.9 (11.5-15.5) g/dL Hct 34.3 (30.0-51.3) % MCV 98.1 H (80-96) fL MCH 34.1 H (27.7-33.6) pg MCHC 34.8 (32.2-35.4) g/dL RDW 12.4 (11.5-15.5) % Plt Count 247 (125-369) X10(3)uL MPV 6.7 L (7.4-10.4) fL Add Manual Diff Yes Neutrophils % (Manual) 84 H (46-82) % Band Neutrophils % 1 (0-6) % Lymphocytes % (Manual) 11 L (13-37) % Monocytes % (Manual) 4 (4-12) % Toxic Granulation Few H (NOT SEEN) PT 34.8 H 36.6 H* (9.0-11.1) sec INR 3.64 H 3.82 H (1.00-1.24) Sodium (135-145) mmol/L Potassium (3.5-5.3) mmol/L Chloride (100-110) mmol/L Carbon Dioxide (21-32) mmol/L BUN (7-18) mg/dL Creatinine (0.55-1.02) mg/dL Est Cr Clr Drug Dosing mL/min Estimated GFR (MDRD) (>60) BUN/Creatinine Ratio (9-20) Glucose (80-116) mg/dL Calcium (8.6-10.2) mg/dL Total Bilirubin (0.1-1.3) mg/dL AST (5-25) IU/L ALT (12-36) U/L Alkaline Phosphatase (56-112) IU/L Troponin I (4.0-60.3) pg/mL Total Protein (6.0-8.0) g/dL Albumin (3.2-4.6) g/dL Globulin g/dL Albumin/Globulin Ratio 12/25/19 12/25/19 Range/Units 06:40 06:40 WBC (4.5-12.0) X10-3/uL RBC (3.23-5.20) x10(6)uL Hgb (11.5-15.5) g/dL Hct (30.0-51.3) % MCV (80-96) fL MCH (27.7-33.6) pg MCHC (32.2-35.4) g/dL RDW (11.5-15.5) % Plt Count (125-369) X10(3)uL MPV (7.4-10.4) fL Add Manual Diff Neutrophils % (Manual) (46-82) % Band Neutrophils % (0-6) % Lymphocytes % (Manual) (13-37) % Monocytes % (Manual) (4-12) % Toxic Granulation (NOT SEEN) PT (9.0-11.1) sec INR (1.00-1.24) Sodium 138 (135-145) mmol/L Potassium 4.4 (3.5-5.3) mmol/L Chloride 102 D (100-110) mmol/L Carbon Dioxide 28 (21-32) mmol/L BUN 6 L (7-18) mg/dL Creatinine 0.7 (0.55-1.02) mg/dL Est Cr Clr Drug Dosing 66.33 mL/min Estimated GFR (MDRD) > 60 (>60) BUN/Creatinine Ratio 8.6 L (9-20) Glucose 118 H (80-116) mg/dL Calcium 8.1 L (8.6-10.2) mg/dL Total Bilirubin 1.1 (0.1-1.3) mg/dL AST 377 H* D (5-25) IU/L ALT 335 H* D (12-36) U/L Alkaline Phosphatase 150 H (56-112) IU/L Troponin I 6.4 (4.0-60.3) pg/mL Total Protein 6.4 (6.0-8.0) g/dL Albumin 3.0 L (3.2-4.6) g/dL Globulin 3.4 g/dL Albumin/Globulin Ratio 0.9 Med Orders - Current: Current Medications Acetaminophen (Tylenol Arthritis Pain) 1,300 mg PO TID [facility] Last Admin: 12/25/19 08:52 Dose: 1,300 mg Cefoxitin Sodium (Mefoxin) 1 gm IVPUSH Q8H [facility] Last Admin: 12/25/19 03:35 Dose: 1 gm Sodium Chloride (Normal Saline) 1,000 mls @ 100 mls/hr IV ASDIRECTED [facility] Last Admin: 12/25/19 01:07 Dose: 100 mls/hr Sodium Chloride (Normal Saline) 250 mls @ 100 mls/hr IV ASDIRECTED [facility] Lisinopril (Prinivil) 40 mg PO DAILY [facility] Last Admin: 12/25/19 08:52 Dose: 40 mg Metoprolol Tartrate (Lopressor) 50 mg PO BID [facility] Last Admin: 12/25/19 08:49 Dose: 50 mg Morphine Sulfate (Morphine) 4 mg IVPUSH Q2H PRN PRN Reason: PAIN Last Admin: 12/25/19 05:38 Dose: 4 mg Multivitamins/Minerals/Vitamin C (Tab-A-Elsa) 1 tab PO DAILY [facility] Non-Formulary Medication (Ascorbic Acid [Vitamin C With Veronika Hips]) 500 mg PO DAILY [facility] Non-Formulary Medication (Biotin [Biotin]) 10 mg PO DAILY [facility] Non-Formulary Medication (Calcium Carbonate/Vitamin D3 [Calcium 500-Vit D3 200 Tablet]) 1 each PO BID [facility] Non-Formulary Medication (Cholecalciferol (Vitamin D3) [Vitamin D3]) 2,000 unit PO DAILY [facility] Non-Formulary Medication (Magnesium [Magnesium]) 250 mg PO BID [facility] Ondansetron HCl (Zofran) 4 mg IV Q6H PRN PRN Reason: Nausea/Vomiting Oxybutynin Chloride (Oxybutynin) 5 mg PO BID [facility] Last Admin: 12/25/19 08:51 Dose: 5 mg Pantoprazole Sodium (Protonix Iv) 40 mg IVPUSH Q12H [facility] Last Admin: 12/25/19 05:30 Dose: 40 mg Pantoprazole Sodium (Protonix) 40 mg PO BEDTIME [facility] Last Admin: 12/24/19 20:34 Dose: 40 mg Polyethylene Glycol (Miralax) 17 gm PO DAILY PRN PRN Reason: Constipation Sodium Chloride (Saline Flush) 10 ml FLUSH ASDIRECTED PRN PRN Reason: Keep Vein Open Last Admin: 12/24/19 05:01 Dose: 10 ml Warfarin Sodium (Coumadin Sliding Scale) 1 each PO 1600 [facility] Discontinued Medications Acetaminophen (Tylenol Arthritis Pain) 1,300 mg PO Q8H PRN PRN Reason: Pain Acetaminophen (Tylenol Arthritis Pain) 1,300 mg PO Q8H [facility] Last Admin: 12/24/19 17:48 Dose: 1,300 mg Aspirin (Aspirin) 324 mg PO ONETIME ONE Stop: 12/24/19 01:57 Last Admin: 12/24/19 02:21 Dose: 324 mg Ceftriaxone Sodium (Rocephin) 1 gm IVPUSH ONETIME ONE Stop: 12/24/19 04:39 Last Admin: 12/24/19 04:44 Dose: 1 gm Sodium Chloride (Normal Saline) 1,000 mls @ 0 mls/hr IV ASDIRECTED [facility] Stop: 12/28/19 01:57 Last Admin: 12/24/19 05:33 Dose: 100 mls/hr Iopamidol (Isovue-370 (76%)) 100 ml IV . DIRECTED ONE Stop: 12/24/19 03:05 Last Admin: 12/24/19 03:42 Dose: 100 ml Morphine Sulfate (Morphine) 2 mg IVPUSH Q2H PRN PRN Reason: Pain Last Admin: 12/24/19 07:05 Dose: 2 mg Morphine Sulfate (Morphine) 4 mg IVPUSH ONETIME ONE Stop: 12/24/19 04:56 Last Admin: 12/24/19 04:59 Dose: 4 mg Nitroglycerin (Nitrostat) 0.4 mg SL Q5M PRN PRN Reason: Chest Pain Last Admin: 12/24/19 02:39 Dose: 0.4 mg Ondansetron HCl (Zofran) 4 mg IVPUSH ONETIME ONE Stop: 12/24/19 02:34 Last Admin: 12/24/19 02:36 Dose: 4 mg Ondansetron HCl (Zofran) 4 mg IVPUSH ONETIME ONE Stop: 12/24/19 04:56 Last Admin: 12/24/19 04:59 Dose: 4 mg - Exam General: Alert, Oriented, Cooperative, Mild Distress Lungs: Clear to Auscultation, Normal Respiratory Effort Cardiovascular: Regular Rate, Regular Rhythm, No Murmurs GI/Abdominal Exam: Soft, No Distention, Tender (Right upper quadrant with positive Solis sign) Extremities: No Pedal Edema EKG INTERPRETATION EKG Date: 12/25/19 Rhythm: NSR EKG Interpretation Comments: Normal sinus rhythm without any ST abnormalities. Sepsis Event Note - Evaluation Sepsis Screening Result: No Definite Risk - Focused Exam Vital Signs: Vital Signs Temp Pulse Pulse Resp BP BP Pulse Ox 12/25/19 08:49 69 147/74 H 12/25/19 05:00 12/25/19 04:50 96 12/25/19 04:00 97.7 F 70 18 157/77 H 96 12/25/19 00:00 97.7 F 66 18 144/75 H 97 Pulse Ox 12/25/19 08:49 12/25/19 05:00 96 12/25/19 04:50 12/25/19 04:00 12/25/19 00:00 Date Exam was Performed: 12/25/19 Time Exam was Performed: 08:56 - Problem List & Annotations (1) Cholecystitis SNOMED Code(s): 76943069 Code(s): K81.9 - CHOLECYSTITIS, UNSPECIFIED Status: Deleted Current Visit : Yes (2) Chest pain SNOMED Code(s): 86612927 Code(s): R07.9 - CHEST PAIN, UNSPECIFIED Status: Acute Current Visit: Yes Qualifiers: Chest pain type: unspecified Qualified Code(s): R07.9 - Chest pain, unspecified (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): K22.70 - COLE'S ESOPHAGUS WITHOUT DYSPLASIA Status: Acute Current Visit: No Qualifiers: Cole's esophagus type: without dysplasia Qualified Code(s): K22.70 - Cole's esophagus without dysplasia (4) History of gastric bypass SNOMED Code(s): 783806896 Code(s): Z98.890 - OTHER SPECIFIED POSTPROCEDURAL STATES Status: Acute Current Visit: No - Problem List Review Problem List Initiated/Reviewed/Updated: Yes - My Orders Last 24 Hours: My Active Orders 12/24/19 08:36 polyethylene glycoL 3350 [MiraLAX] 17 gm PO DAILY PRN EKG 12 Lead [EK] Routine 12/24/19 08:47 Notify Provider Consults [RC] ASDIRECTED Consult to Physician [CONS] Routine 12/24/19 09:00 Ascorbic Acid [Vitamin C with Veronika Hips] 500 mg PO DAILY Biotin [Biotin] 10 mg PO DAILY Calcium Carbonate/Vitamin D3 [Calcium 500-Vit D3 200 Tablet] 1 each PO BID Cholecalciferol (Vitamin D3) [Vitamin D3] 2,000 unit PO DAILY Magnesium [Magnesium] 250 mg PO BID Metoprolol Tartrate [Lopressor] 50 mg PO BID Multivitamins [Tab-A-Elsa] 1 tab PO DAILY Oxybutynin 5 mg PO BID lisinopriL [Prinivil] 40 mg PO DAILY 12/24/19 09:15 Morphine Sulfate [Morphine] 4 mg IVPUSH Q2H PRN 12/24/19 16:00 Warfarin Sliding Scale [Coumadin Sliding Scale] 1 each PO 1600 12/24/19 21:00 Pantoprazole [ProTONIX] 40 mg PO BEDTIME 12/25/19 05:58 EKG Documentation Completion [RC] ASDIRECTED 12/25/19 06:00 EKG 12 Lead [EK] Routine 12/25/19 08:55 Admission Status [Patient Status] [ADT] Routine 12/26/19 08:45 INR,PT,PROTHROMBIN TIME [COAG] DAILY 12/27/19 08:45 INR,PT,PROTHROMBIN TIME [COAG] DAILY 12/28/19 08:45 INR,PT,PROTHROMBIN TIME [COAG] DAILY 12/29/19 08:45 INR,PT,PROTHROMBIN TIME [COAG] DAILY - Plan Plan:: 1. Change admission status to inpatient 2. DC telemetry per patient request. 3. Patient's had multiple troponins that are normal and EKGs that showed no significant changes. Heart disease very unlikely. 4. Dr. Moser will take her to surgery today and he will take over the care with the INR.
[2019-12-25] MEDS ORDERED: Phytonadione 5 MG in Sodium Chloride 0.9% 50 ML IV ONE (10:00)
[2019-12-25] MEDS: Sodium Chloride 0.9% 250 ML IV SCH ×2 (11:14→12:42)
[2019-12-25] MEDS ORDERED: Midazolam 1 MG/ML 2 ML SDV IV ONE (12:19)
[2019-12-25] MEDS ORDERED: Rocuronium 100 MG/10 ML MDV IV ONE (12:19)
[2019-12-25] MEDS ORDERED: ePHEDrine 50 MG/ML SDV IV ONE (12:19)
[2019-12-25] MEDS ORDERED: Ondansetron 4 MG/2 ML SDV IVPUSH ONE (12:19)
[2019-12-25] MEDS ORDERED: hydrALAZINE 20 MG/ML SDV IV ONE (12:19)
[2019-12-25] MEDS ORDERED: Dexamethasone 4 MG/ML 5 ML MDV IVPUSH ONE (12:19)
[2019-12-25] MEDS ORDERED: fentaNYL 100 MCG/2 ML SDV IV ONE (12:19)
[2019-12-25] MEDS ORDERED: Metoprolol Tartrate 5 MG/5 ML SDV IV ONE (12:19)
[2019-12-25] MEDS ORDERED: Glycopyrrolate 0.2 MG/ML 5 ML MDV IV ONE (12:19)
[2019-12-25] MEDS ORDERED: Neostigmine Methylsulfate 10 MG/10 ML MDV IVPUSH ONE (12:19)
[2019-12-25] MEDS ORDERED: Lactated Ringers 1,000 ML IV ONE (12:19)
[2019-12-25] MEDS ORDERED: Propofol 200 MG/20 ML SDV IV ONE (12:19)
[2019-12-25] MEDS ORDERED: Lidocaine 2% 5 ML SDV INJECT ONE (12:19)
[2019-12-25] MEDS ORDERED: WARFARIN 10 MG PO SCH (16:00)
[2019-12-25] MEDS: Sodium Chloride 0.9% 10 ML Syringe FLUSH PRN (16:57)
[2019-12-25] MEDS ORDERED: Naloxone 0.4 MG/ML SDV IVPUSH PRN (19:49)
[2019-12-25] MEDS ORDERED: Morphine PF 30 MG/30 ML PCA Vial IV PRN (19:49)
--- NOTE | 2019-12-25 19:58 | PCM.OPNOTE ---
- General Post-Op/Procedure Note Date of Surgery/Procedure: 12/25/19 Operative Procedure(s): lap cholecystectomy Findings: acute cholecystitis cholelithiasis Pre Op Diagnosis: acute cholelithiasis. cholecystitis Post-Op Diagnosis: Same Anesthesia Technique: General ET Tube Primary Surgeon: Bertram Moser Anesthesia Provider: Haim Card Pathology: gallbladder and contents Fluid Replacement, Intraop: 1,950 (includes ffp ) EBL in mLs: 50 Complications: None Condition: Good Free Text/Narrative:: Intake & Output 12/25/19 12/25/19 12/25/19 06:59 14:59 22:59 Intake Total 1088 1675 0 Output Total 900 1100 Balance 188 575 0 see dictation
[2019-12-25] MEDS: Lactated Ringers 1,000 ML IV SCH (20:59)
[2019-12-25] MEDS ORDERED: Oxybutynin 5 MG Tab PO SCH (21:00)
[2019-12-25] MEDS ORDERED: Morphine 2 MG/ML Syringe IVPUSH PRN (21:13)
--- NOTE | 2019-12-25 23:29 | OR ---
DATE OF OPERATION: 12/25/2019 SURGEON: Bertram Moser MD PROCEDURE PERFORMED: Laparoscopic cholecystectomy. PREOPERATIVE DIAGNOSIS: Acute cholecystitis, cholelithiasis. POSTOPERATIVE DIAGNOSIS: Acute cholecystitis, cholelithiasis. INDICATIONS FOR PROCEDURE: This is a 69-year-old white female who was admitted yesterday with some chest discomfort. She was noted on subsequent workup which ruled out any cardiac etiology of her chest discomfort to have cholelithiasis and cholecystitis. She was placed on IV antibiotics and her pain got worse. She takes oral Coumadin, were corrected today and she was brought to the operating room for laparoscopic cholecystectomy. DESCRIPTION OF PROCEDURE: After an excellent general anesthetic was administered via endotracheal tube, the patient was prepped and draped in usual sterile manner. A grand total of 10 mL of 1:1 mixture of lidocaine with epinephrine, 0.5% bupivacaine were used to infiltrate our trocar sites. We started at the level of the patient's umbilicus, where the local was infiltrated. A small vertical midline incision was carried out. Blunt dissection was carried out exposing the midline fascia. Two stay sutures of 0 Vicryl placed on either side of the midline fascia which was then elevated. The fascia was incised, and the abdominal cavity was entered. The 10.5 mm Key trocar was inserted into the patient's abdomen. The patient's abdomen was then insufflated to 15 mmHg using carbon dioxide. Under direct visualization, three 5 mm ports were placed, one in the midline epigastrium and two below the right costal margin at the proximal level of the midclavicular and anterior axillary line. The gallbladder was noted to be markedly inflamed and large sized, approximately 5 x 10 cm in length and width. Attempts to aspirate and remove the contents of the decompressed gallbladder was partially successful with an aspiration needle. We were able to grab the gallbladder fundus and retract it in a cephalad fashion. The adhesions were taken down bluntly and rather smoothly. There was a small amount of oozing which eventually stopped. We were able to grab the infundibulum and a rather prominent Hosmer's node was noted. We were able to dissect free and obtain a critical view of the cystic duct and cystic artery. There was also an obvious lymphatic that went through Hosmer's node as well. A photo was taken. The clip was placed proximally and distally on the lymphatic, which was then divided. Three clips were placed proximally on the cystic duct at the and one distally at the level of the infundibulum, which was then transected. Two clips were placed proximally on the cystic artery and one distally on the cystic artery, which was divided as well. L-hook cautery dissection was then used to dissect the gallbladder free from the gallbladder fossa. We were able to deliver the specimen into the specimen bag, which filled its capacity completely. The gallbladder was then delivered out through the periumbilical incision. We did have to extend the fascial incision slightly to allow delivery of the specimen. We partially approximated the fascia of the periumbilical incision to allow reinsertion of the trocar. The trocar was then reinserted and the patient's abdomen was returned to 15 mm of pressure using carbon dioxide. This allowed us to irrigate the gallbladder fossa. Bleeding was controlled with electrocautery. We did place a piece of Avitene foam as well as Surgicel as a precaution because of her previous anticoagulation and assumption that we will be starting it in the future. After irrigating to clear and ensuring that we had excellent hemostasis, the three 5 mm ports removed under direct visualization. The remainder of the defect was closed with a running 0 Vicryl. Two stay sutures were then tied to each other. [place] were used to close the skin. Needle, sponge, and instrument counts were reported as correct. The patient was taken to recovery room in good condition having tolerated the procedure well. /[id number] /MODL
[2019-12-26] MEDS: Lactated Ringers 1,000 ML IV SCH ×2 (03:21→11:10)
[2019-12-26] MEDS: cefOXitin 1 GM Vial IVPUSH SCH ×3 (06:08→20:46)
[2019-12-26] MEDS: Pantoprazole 40 MG Vial IVPUSH SCH ×2 (06:08→17:16)
--- NOTE | 2019-12-26 08:13 | PCM.SURGPN ---
- General Info Date of Service: 12/26/19 POD#: 1 Functional Status: Reports: Pain Controlled, Urinating, Incentive Spirometry - Review of Systems General: Denies: Fever Gastrointestinal: Reports: Abdominal Pain (very little pain today ) - Patient Data Vitals - Most Recent: Last Vital Signs Temp 98.6 F 12/26/19 03:35 Pulse 86 12/26/19 03:35 Resp 16 12/26/19 03:35 BP 143/68 H 12/26/19 03:35 Pulse Ox 94 L 12/26/19 06:00 Weight - Most Recent: 92.59 kg I&O - Last 24 Hours: Intake & Output 12/25/19 12/26/19 12/26/19 22:59 06:59 14:59 Intake Total 2230 1253 Output Total 200 650 Balance 2030 603 Lab Results Last 24 Hrs: Laboratory Results - last 24 hr 12/25/19 12/25/19 12/25/19 Range/Units 06:40 06:40 06:40 WBC (4.5-12.0) X10-3/uL RBC (3.23-5.20) x10(6)uL Hgb (11.5-15.5) g/dL Hct (30.0-51.3) % MCV (80-96) fL MCH (27.7-33.6) pg MCHC (32.2-35.4) g/dL RDW (11.5-15.5) % Plt Count (125-369) X10(3)uL MPV (7.4-10.4) fL Add Manual Diff Neutrophils % (Manual) 84 H (46-82) % Band Neutrophils % 1 (0-6) % Lymphocytes % (Manual) 11 L (13-37) % Monocytes % (Manual) 4 (4-12) % Toxic Granulation Few H (NOT SEEN) PT (9.0-11.1) sec INR (1.00-1.24) Sodium (135-145) mmol/L Potassium (3.5-5.3) mmol/L Chloride (100-110) mmol/L Carbon Dioxide (21-32) mmol/L BUN (7-18) mg/dL Creatinine (0.55-1.02) mg/dL Est Cr Clr Drug Dosing mL/min Estimated GFR (MDRD) (>60) BUN/Creatinine Ratio (9-20) Glucose (80-116) mg/dL Calcium (8.6-10.2) mg/dL Total Bilirubin (0.1-1.3) mg/dL AST (5-25) IU/L ALT (12-36) U/L Alkaline Phosphatase (56-112) IU/L Troponin I 6.4 (4.0-60.3) pg/mL Total Protein (6.0-8.0) g/dL Albumin (3.2-4.6) g/dL Globulin g/dL Albumin/Globulin Ratio Blood Type A POSITIVE 12/25/19 12/26/19 12/26/19 Range/Units 15:20 06:45 06:45 WBC 7.8 (4.5-12.0) X10-3/uL RBC 2.99 L (3.23-5.20) x10(6)uL Hgb 10.1 L (11.5-15.5) g/dL Hct 29.6 L (30.0-51.3) % MCV 98.9 H (80-96) fL MCH 33.8 H (27.7-33.6) pg MCHC 34.2 (32.2-35.4) g/dL RDW 12.8 (11.5-15.5) % Plt Count 208 (125-369) X10(3)uL MPV 6.5 L (7.4-10.4) fL Add Manual Diff Yes Neutrophils % (Manual) 82 (46-82) % Band Neutrophils % (0-6) % Lymphocytes % (Manual) 8 L (13-37) % Monocytes % (Manual) 10 (4-12) % Toxic Granulation (NOT SEEN) PT 16.0 H (9.0-11.1) sec INR 1.66 H (1.00-1.24) Sodium 140 (135-145) mmol/L Potassium 4.3 (3.5-5.3) mmol/L Chloride 105 (100-110) mmol/L Carbon Dioxide 27 (21-32) mmol/L BUN 8 (7-18) mg/dL Creatinine 0.8 (0.55-1.02) mg/dL Est Cr Clr Drug Dosing 58.04 mL/min Estimated GFR (MDRD) > 60 (>60) BUN/Creatinine Ratio 10.0 (9-20) Glucose 104 (80-116) mg/dL Calcium 8.2 L (8.6-10.2) mg/dL Total Bilirubin 0.7 (0.1-1.3) mg/dL AST 105 H D (5-25) IU/L ALT 175 H* D (12-36) U/L Alkaline Phosphatase 112 (56-112) IU/L Troponin I (4.0-60.3) pg/mL Total Protein 6.1 (6.0-8.0) g/dL Albumin 2.5 L (3.2-4.6) g/dL Globulin 3.6 g/dL Albumin/Globulin Ratio 0.7 Blood Type Med Orders - Current: Current Medications Hydrocodone Bitart/Acetaminophen ([place] 325-5 Mg) 1 tab PO Q4H PRN PRN Reason: Pain Cefoxitin Sodium (Mefoxin) 1 gm IVPUSH Q8H [facility] Last Admin: 12/26/19 06:08 Dose: 1 gm Celecoxib (Celebrex) 200 mg PO BID [facility] Lactated Ringer's (Ringers, Lactated) 1,000 mls @ 75 mls/hr IV ASDIRECTED [facility] Lisinopril (Prinivil) 40 mg PO DAILY [facility] Last Admin: 12/25/19 08:52 Dose: 40 mg Metoprolol Tartrate (Lopressor) 50 mg PO BID [facility] Last Admin: 12/25/19 21:03 Dose: 50 mg Ondansetron HCl (Zofran) 4 mg IV Q6H PRN PRN Reason: Nausea/Vomiting Pantoprazole Sodium (Protonix Iv) 40 mg IVPUSH Q12H [facility] Last Admin: 12/26/19 06:08 Dose: 40 mg Sodium Chloride (Saline Flush) 10 ml FLUSH ASDIRECTED PRN PRN Reason: Keep Vein Open Last Admin: 12/25/19 16:57 Dose: 10 ml Discontinued Medications Acetaminophen (Tylenol Arthritis Pain) 1,300 mg PO Q8H PRN PRN Reason: Pain Acetaminophen (Tylenol Arthritis Pain) 1,300 mg PO Q8H [facility] Last Admin: 12/24/19 17:48 Dose: 1,300 mg Acetaminophen (Tylenol Arthritis Pain) 1,300 mg PO TID [facility] Last Admin: 12/25/19 13:40 Dose: Not Given Aspirin (Aspirin) 324 mg PO ONETIME ONE Stop: 12/24/19 01:57 Last Admin: 12/24/19 02:21 Dose: 324 mg Ceftriaxone Sodium (Rocephin) 1 gm IVPUSH ONETIME ONE Stop: 12/24/19 04:39 Last Admin: 12/24/19 04:44 Dose: 1 gm Sodium Chloride (Normal Saline) 1,000 mls @ 0 mls/hr IV ASDIRECTED [facility] Stop: 12/28/19 01:57 Last Admin: 12/24/19 05:33 Dose: 100 mls/hr Sodium Chloride (Normal Saline) 1,000 mls @ 100 mls/hr IV ASDIRECTED [facility] Last Admin: 12/25/19 13:39 Dose: 100 mls/hr Sodium Chloride (Normal Saline) 250 mls @ 100 mls/hr IV ASDIRECTED [facility] Last Admin: 12/25/19 12:42 Dose: 100 mls/hr Phytonadione 5 mg/ Sodium (Chloride) 50.5 mls @ 100 mls/hr IV ONETIME ONE Stop: 12/25/19 10:30 Last Admin: 12/25/19 10:18 Dose: 100 mls/hr Lactated Ringer's (Ringers, Lactated) 1,000 mls @ 150 mls/hr IV ASDIRECTED [facility] Last Admin: 12/26/19 03:21 Dose: 150 mls/hr Iopamidol (Isovue-370 (76%)) 100 ml IV . DIRECTED ONE Stop: 12/24/19 03:05 Last Admin: 12/24/19 03:42 Dose: 100 ml Morphine Sulfate (Morphine) 2 mg IVPUSH Q2H PRN PRN Reason: Pain Last Admin: 12/24/19 07:05 Dose: 2 mg Morphine Sulfate (Morphine) 4 mg IVPUSH ONETIME ONE Stop: 12/24/19 04:56 Last Admin: 12/24/19 04:59 Dose: 4 mg Morphine Sulfate (Morphine) 4 mg IVPUSH Q2H PRN PRN Reason: PAIN Last Admin: 12/25/19 11:11 Dose: 4 mg Morphine Sulfate (Morphine Associate Financial Analyst 30 Mg In 30 Ml) 0 mg IV ASDIRECTED PRN; Protocol PRN Reason: Pain (severe 7-10) Morphine Sulfate (Morphine) 2 mg IVPUSH Q2H PRN PRN Reason: Pain Multivitamins/Minerals/Vitamin C (Tab-A-Elsa) 1 tab PO DAILY [facility] Naloxone HCl (Narcan) 0.4 mg IVPUSH Q2M PRN PRN Reason: Respiratory Distress Nitroglycerin (Nitrostat) 0.4 mg SL Q5M PRN PRN Reason: Chest Pain Last Admin: 12/24/19 02:39 Dose: 0.4 mg Non-Formulary Medication (Ascorbic Acid [Vitamin C With Veronika Hips]) 500 mg PO DAILY [facility] Non-Formulary Medication (Biotin [Biotin]) 10 mg PO DAILY [facility] Non-Formulary Medication (Calcium Carbonate/Vitamin D3 [Calcium 500-Vit D3 200 Tablet]) 1 each PO BID [facility] Non-Formulary Medication (Cholecalciferol (Vitamin D3) [Vitamin D3]) 2,000 unit PO DAILY [facility] Non-Formulary Medication (Magnesium [Magnesium]) 250 mg PO BID [facility] Ondansetron HCl (Zofran) 4 mg IVPUSH ONETIME ONE Stop: 12/24/19 02:34 Last Admin: 12/24/19 02:36 Dose: 4 mg Ondansetron HCl (Zofran) 4 mg IVPUSH ONETIME ONE Stop: 12/24/19 04:56 Last Admin: 12/24/19 04:59 Dose: 4 mg Oxybutynin Chloride (Oxybutynin) 5 mg PO BID [facility] Last Admin: 12/25/19 08:51 Dose: 5 mg Oxybutynin Chloride (Oxybutynin) 5 mg PO BID [facility] Pantoprazole Sodium (Protonix) 40 mg PO BEDTIME [facility] Last Admin: 12/24/19 20:34 Dose: 40 mg Polyethylene Glycol (Miralax) 17 gm PO DAILY PRN PRN Reason: Constipation Warfarin Sodium (Coumadin Sliding Scale) 1 each PO 1600 [facility] - Exam Wound/Incisions: Dressing Dry and Intact General: Alert, Oriented, Cooperative Lungs: Clear to Auscultation, Normal Respiratory Effort Cardiovascular: Regular Rate, Regular Rhythm GI/Abdominal Exam: Normal Bowel Sounds, Tender (over inicision sites ) Skin: Warm, Dry Sepsis Event Note - Evaluation Sepsis Screening Result: No Definite Risk - Focused Exam Vital Signs: Vital Signs Temp Temp Pulse Pulse Resp BP BP 12/26/19 06:00 12/26/19 03:35 98.6 F 86 16 143/68 H 12/25/19 22:50 16 133/68 12/25/19 22:30 16 135/71 12/25/19 22:00 16 135/72 12/25/19 21:10 98.6 F 16 144/67 H 12/25/19 21:03 102 H 144/67 H 12/25/19 20:55 97.8 F 16 145/70 H 12/25/19 20:50 98.7 F 16 127/67 12/25/19 20:25 98.9 F 16 149/71 H 12/25/19 20:15 12/25/19 20:10 99.7 F 16 150/73 H Pulse Ox Pulse Ox 12/26/19 06:00 94 L 94 L 12/26/19 03:35 94 L 12/25/19 22:50 97 12/25/19 22:30 96 12/25/19 22:00 96 12/25/19 21:10 97 12/25/19 21:03 12/25/19 20:55 97 12/25/19 20:50 97 12/25/19 20:25 97 12/25/19 20:15 97 12/25/19 20:10 92 L Date Exam was Performed: 12/26/19 Time Exam was Performed: 08:08 - Problem List & Annotations (1) Cholelithiasis and acute cholecystitis without obstruction Status: Resolved Current Visit: Yes Annotation/Comment:: with lap cholecystectomy (2) History of gastric bypass SNOMED Code(s): 562337956 Code(s): Z98.890 - OTHER SPECIFIED POSTPROCEDURAL STATES Status: Acute Current Visit: No (3) Hypertension SNOMED Code(s): 97766123 Code(s): I10 - ESSENTIAL (PRIMARY) HYPERTENSION Status: Acute Current Visit: No Qualifiers: Hypertension type: essential hypertension Qualified Code(s): I10 - Essential (primary) hypertension (4) Paroxysmal atrial fibrillation SNOMED Code(s): 867571670 Code(s): I48.0 - PAROXYSMAL ATRIAL FIBRILLATION Status: Acute Current Visit: No (5) Chest pain SNOMED Code(s): 64427224 Code(s): R07.9 - CHEST PAIN, UNSPECIFIED Status: Acute Current Visit: Yes Qualifiers: Chest pain type: unspecified Qualified Code(s): R07.9 - Chest pain, unspecified - Problem List Review Problem List Initiated/Reviewed/Updated: Yes - My Orders Last 24 Hours: Active Orders 24 hr Category Date Time Status Admission Status [Patient Status] [ADT] Routine ADT 12/25/19 08:55 Active Ambulate [RC] Q4HWA Care 12/25/19 19:53 Active Cardiac Monitoring [RC] .As Directed Care 12/25/19 19:49 Inactive Communication Order [RC] STAT Care 12/25/19 19:49 Active DC Hernandes Catheter [Urinary Catheter Removal] [RC] Per Care 12/26/19 08:04 Ordered Unit Routine IS (RT) [RT Incentive Spirometry] [RC] Q2HWA Care 12/25/19 19:53 Active Notify Provider [RC] PRN Care 12/25/19 19:49 Active B OPERATOR Record [RC] PER UNIT ROUTINE Care 12/25/19 19:49 Inactive Clear Liquid Diet [DIET] Diet 12/26/19 Breakfast Ordered Acetaminophen/HYDROcodone [[place] 325-5 MG] Med 12/26/19 08:07 Ordered 1 tab PO Q4H PRN Celecoxib [CeleBREX] Med 12/26/19 09:00 Ordered 200 mg PO BID Lactated Ringers @ 75 MLS/HR(1000ml) Med 12/26/19 08:15 Ordered Lactated Ringers [Ringers, Lactated] 1,000 ml IV ASDIRECTED Medication Discontinuation Instructions [OM.PC] Stat Oth 12/25/19 19:49 Ordered Medication Orders Hydrocodone Bitart/Acetaminophen ([place] 325-5 Mg) 1 tab PO Q4H PRN PRN Reason: Pain Cefoxitin Sodium (Mefoxin) 1 gm IVPUSH Q8H [facility] Last Admin: 12/26/19 06:08 Dose: 1 gm Admin: 12/25/19 22:00 Dose: 1 gm Admin: 12/25/19 13:26 Dose: 1 gm Admin: 12/25/19 03:35 Dose: 1 gm Admin: 12/24/19 20:32 Dose: 1 gm Admin: 12/24/19 13:09 Dose: 1 gm Celecoxib (Celebrex) 200 mg PO BID [facility] Lactated Ringer's (Ringers, Lactated) 1,000 mls @ 75 mls/hr IV ASDIRECTED [facility] Lisinopril (Prinivil) 40 mg PO DAILY [facility] Last Admin: 12/25/19 08:52 Dose: 40 mg Admin: 12/24/19 09:35 Dose: 40 mg Metoprolol Tartrate (Lopressor) 50 mg PO BID [facility] Last Admin: 12/25/19 21:03 Dose: 50 mg Admin: 12/25/19 08:49 Dose: 50 mg Admin: 12/24/19 20:33 Dose: 50 mg Admin: 12/24/19 09:36 Dose: 50 mg Ondansetron HCl (Zofran) 4 mg IV Q6H PRN PRN Reason: Nausea/Vomiting Pantoprazole Sodium (Protonix Iv) 40 mg IVPUSH Q12H [facility] Last Admin: 12/26/19 06:08 Dose: 40 mg Admin: 12/25/19 20:23 Dose: 40 mg Admin: 12/25/19 05:30 Dose: 40 mg Admin: 12/24/19 17:43 Dose: 40 mg Admin: 12/24/19 06:21 Dose: 40 mg Sodium Chloride (Saline Flush) 10 ml FLUSH ASDIRECTED PRN PRN Reason: Keep Vein Open Last Admin: 12/25/19 16:57 Dose: 10 ml Admin: 12/24/19 05:01 Dose: 10 ml Admin: 12/24/19 04:46 Dose: 10 ml Admin: 12/24/19 02:40 Dose: 10 ml Admin: 12/24/19 02:20 Dose: 10 ml - Assessment Assessment (Free Text/Narrative):: Looks quite well this am lab work is improving - Plan Plan (Free Text/Narrative):: Oral pain meds decrease IVF rate resume diet d/c hernandes anticipate d/c possibly later today or in the am on Sunday.
[2019-12-26] MEDS: Acetaminophen/HYDROcodone 325-5 MG Tab PO PRN ×4 (08:27→21:24)
[2019-12-26] MEDS ORDERED: Celecoxib 200 MG Cap PO SCH (09:00)
[2019-12-26] MEDS: Sucralfate 1 GM Tab PO SCH ×4 (10:52→20:47)
[2019-12-26] MEDS: Metoprolol Tartrate 50 MG Tab PO SCH ×2 (10:53→20:46)
[2019-12-26] MEDS ORDERED: Warfarin 5 MG Tab PO SCH ×2 (16:00)
[2019-12-26] MEDS ORDERED: Warfarin Sliding Scale PO SCH (16:00)
[2019-12-27] MEDS: Lactated Ringers 1,000 ML IV SCH (01:00)
[2019-12-27] MEDS: Pantoprazole 40 MG Vial IVPUSH SCH (05:27)
[2019-12-27] MEDS: cefOXitin 1 GM Vial IVPUSH SCH ×2 (05:27→12:44)
[2019-12-27] MEDS: Sucralfate 1 GM Tab PO SCH ×2 (07:30→12:44)
[2019-12-27 08:21] VITALS: BP 155/78; PULSE 72
[2019-12-27] MEDS: Metoprolol Tartrate 50 MG Tab PO SCH (09:45)
--- NOTE | 2019-12-27 10:16 | PCM.DCSUM1 ---
Discharge Summary - Hospital Course Free Text/Narrative:: Pt was admitted. Cardiac concerns were essentially ruled out with serial EKG's as well as troponin. CT scan as well as ultrasound noted evidence consistent with acute cholelithiasis as well as cholecystitis. Her clinical exam demonstrated some tenderness in the ruq and she was started on antibiotics. The next day her pain was worse and her LFT's were slightly elevated. Coumadin was reversed with Vit K and FFP and she was taken to the OR for a lap cholecystectomy. Post operative course was unremarkable. Tolerated the resumption of po diet. PO pain medication controlled her pain. LFT 's have started to return to normal. - Discharge Data Discharge Date: 12/27/19 Discharge Disposition: Home, Self-Care 01 Condition: Good - Referral to Home Health Primary Care Physician: Juan Pacheco MD - Discharge Diagnosis/Problem(s) (1) Cholelithiasis and acute cholecystitis without obstruction Status: Resolved Current Visit: Yes Problem Details: with lap cholecystectomy (2) History of gastric bypass SNOMED Code(s): 732027679 ICD Code: Z98.890 - OTHER SPECIFIED POSTPROCEDURAL STATES Status: Acute Current Visit: No (3) Hypertension SNOMED Code(s): 26508479 ICD Code: I10 - ESSENTIAL (PRIMARY) HYPERTENSION Status: Acute Current Visit: No Qualifiers: Hypertension type: essential hypertension Qualified Code(s): I10 - Essential (primary) hypertension (4) Paroxysmal atrial fibrillation SNOMED Code(s): 278552305 ICD Code: I48.0 - PAROXYSMAL ATRIAL FIBRILLATION Status: Acute Current Visit: No (5) Chest pain SNOMED Code(s): 49371242 ICD Code: R07.9 - CHEST PAIN, UNSPECIFIED Status: Acute Current Visit: Yes Qualifiers: Chest pain type: unspecified Qualified Code(s): R07.9 - Chest pain, unspecified - Patient Summary/Data Operative Procedure(s) Performed: lap cholecystectomy Consults: Consultations 12/24/19 08:47 Consult to Physician [CONS] Routine Consulting Provider: Bertram Moser Call Completed to Consulting Physician: Yes Reason for Consult: Cholecystitis - Patient Instructions Diet: Usual Diet as Tolerated, No Alcoholic Beverages Activity: No Lifting Over 25 Pounds, No Strenuous Activities, Rest and Relax Today Driving: Do Not Drive (for 7 days ) Showering/Bathing: May Shower, No Tub Bathing/Swimming Notify Provider of: Fever, Increased Pain - Discharge Plan *PRESCRIPTION DRUG MONITORING PROGRAM REVIEWED*: Yes *COPY OF PRESCRIPTION DRUG MONITORING REPORT IN PATIENT SALTY: No Prescriptions/Med Rec: Acetaminophen/HYDROcodone [Sarah 325-5 MG] 1 tab PO Q6H PRN #16 tablet PRN Reason: Pain Ferrous Sulfate 325 mg PO DAILY #30 tablet Home Medications: Home Meds Ascorbic Acid [Vitamin C with Veronika Hips] 500 mg PO DAILY 12/01/13 [History] Biotin 10 mg PO DAILY 12/01/13 [History] Cholecalciferol (Vitamin D3) [Vitamin D3] 2,000 unit PO DAILY 12/01/13 [History] Cyanocobalamin (Vitamin B-12) [Vitamin B-12] 500 mcg PO DAILY 12/01/13 [History] Lisinopril 40 mg PO DAILY 12/01/13 [History] Acetaminophen [Tylenol Arthritis Pain] 1,300 mg PO Q8H PRN 06/14/16 [History] Docusate Sodium [Colace] 200 mg PO DAILY 06/14/16 [History] Polyethylene Glycol 3350 [MiraLAX] 17 gm PO DAILY PRN 06/14/16 [History] Magnesium 250 mg PO BID 10/20/16 [History] Metoprolol Tartrate 50 mg PO BID 10/20/16 [History] Multivitamin [Daily Elsa] 1 tab PO DAILY 10/20/16 [History] Pantoprazole Sodium [Protonix] 40 mg PO BEDTIME 10/20/16 [History] Cephalexin [Keflex] 2,000 mg PO ONETIME PRN 02/23/17 [History] Warfarin [Coumadin] 12.5 mg PO MOFR 02/23/17 [History] Calcium Carbonate/Vitamin D3 [Calcium 500-Vit D3 200 Tablet] 1 each PO BID 02/26 [History] Warfarin [Coumadin] 10 mg PO SUTUWETHSA 04/07/19 [History] Oxybutynin 5 mg PO BID 12/24/19 [History] Acetaminophen/HYDROcodone [Sarah 325-5 MG] 1 tab PO Q6H PRN #16 tablet 12/27/19 [Rx] Ferrous Sulfate 325 mg PO DAILY #30 tablet 12/27/19 [Rx] Patient Handouts: Fall Prevention in the Home, Adult, Venous Thromboembolism Prevention Forms: ED Department Discharge Referrals: Bertram Moser MD [Physician] - 01/01/20 - Discharge Summary/Plan Comment DC Time >30 min.: No - Patient Data Vitals - Most Recent: Last Vital Signs Temp 98.0 F 12/27/19 08:00 Pulse 72 12/27/19 09:45 Resp 20 12/27/19 08:00 BP 155/78 H 12/27/19 09:45 Pulse Ox 94 L 12/27/19 08:00 Weight - Most Recent: 92.59 kg I&O - Last 24 hours: Intake & Output 12/26/19 12/27/19 12/27/19 22:59 06:59 14:59 Intake Total 464 1166 Output Total 125 1350 Balance 339 -184 Lab Results - Last 24 hrs: Laboratory Results - last 24 hr 12/27/19 12/27/19 Range/Units 06:36 06:36 WBC 4.7 (4.5-12.0) X10-3/uL RBC 2.68 L (3.23-5.20) x10(6)uL Hgb 8.8 L (11.5-15.5) g/dL Hct 26.5 L (30.0-51.3) % MCV 98.9 H (80-96) fL MCH 32.8 (27.7-33.6) pg MCHC 33.1 (32.2-35.4) g/dL RDW 12.4 (11.5-15.5) % Plt Count 220 (125-369) X10(3)uL MPV 6.5 L (7.4-10.4) fL Neut % (Auto) 74.4 (46-82) % Lymph % (Auto) 17.2 (13-37) % [place] % (Auto) 7.0 (4-12) % Eos % (Auto) 1 (1.0-5.0) % Baso % (Auto) 1 (0-2) % Neut # (Auto) 3.6 (1.6-8.3) # Lymph # (Auto) 0.8 (0.6-5.0) # [place] # (Auto) 0.3 (0.0-1.3) # Eos # (Auto) 0.0 (0.0-0.8) # Baso # (Auto) 0.0 (0.0-0.2) # Sodium 139 (135-145) mmol/L Potassium 3.8 (3.5-5.3) mmol/L Chloride 104 (100-110) mmol/L Carbon Dioxide 28 (21-32) mmol/L BUN 8 (7-18) mg/dL Creatinine 0.7 (0.55-1.02) mg/dL Est Cr Clr Drug Dosing 66.33 mL/min Estimated GFR (MDRD) > 60 (>60) BUN/Creatinine Ratio 11.4 (9-20) Glucose 86 (80-116) mg/dL Calcium 8.2 L (8.6-10.2) mg/dL Total Bilirubin 0.7 (0.1-1.3) mg/dL AST 51 H D (5-25) IU/L ALT 115 H D (12-36) U/L Alkaline Phosphatase 100 (56-112) IU/L Total Protein 5.8 L (6.0-8.0) g/dL Albumin 2.3 L (3.2-4.6) g/dL Globulin 3.5 g/dL Albumin/Globulin Ratio 0.7 Med Orders - Current: Current Medications Hydrocodone Bitart/Acetaminophen (Sarah 325-5 Mg) 1 tab PO Q4H PRN PRN Reason: Pain Last Admin: 12/26/19 21:24 Dose: 1 tab Cefoxitin Sodium (Mefoxin) 1 gm IVPUSH Q8H [facility] Last Admin: 12/27/19 05:27 Dose: 1 gm Lactated Ringer's (Ringers, Lactated) 1,000 mls @ 75 mls/hr IV ASDIRECTED [facility] Last Admin: 12/27/19 01:00 Dose: 75 mls/hr Lisinopril (Prinivil) 40 mg PO DAILY [facility] Last Admin: 12/27/19 09:45 Dose: 40 mg Metoprolol Tartrate (Lopressor) 50 mg PO BID [facility] Last Admin: 12/27/19 09:45 Dose: 50 mg Ondansetron HCl (Zofran) 4 mg IV Q6H PRN PRN Reason: Nausea/Vomiting Pantoprazole Sodium (Protonix Iv) 40 mg IVPUSH Q12H [facility] Last Admin: 12/27/19 05:27 Dose: 40 mg Sodium Chloride (Saline Flush) 10 ml FLUSH ASDIRECTED PRN PRN Reason: Keep Vein Open Last Admin: 12/25/19 16:57 Dose: 10 ml Sucralfate (Carafate) 1 gm PO QIDACANDBED [facility] Last Admin: 12/27/19 07:30 Dose: 1 gm Warfarin Sodium (Coumadin Sliding Scale) 1 each PO 1600 [facility] Warfarin Sodium (Coumadin) 10 mg PO 1600 [facility] Last Admin: 12/26/19 17:16 Dose: 10 mg Discontinued Medications Acetaminophen (Tylenol Arthritis Pain) 1,300 mg PO Q8H PRN PRN Reason: Pain Acetaminophen (Tylenol Arthritis Pain) 1,300 mg PO Q8H [facility] Last Admin: 12/24/19 17:48 Dose: 1,300 mg Acetaminophen (Tylenol Arthritis Pain) 1,300 mg PO TID [facility] Last Admin: 12/25/19 13:40 Dose: Not Given Aspirin (Aspirin) 324 mg PO ONETIME ONE Stop: 12/24/19 01:57 Last Admin: 12/24/19 02:21 Dose: 324 mg Ceftriaxone Sodium (Rocephin) 1 gm IVPUSH ONETIME ONE Stop: 12/24/19 04:39 Last Admin: 12/24/19 04:44 Dose: 1 gm Sodium Chloride (Normal Saline) 1,000 mls @ 0 mls/hr IV ASDIRECTED [facility] Stop: 12/28/19 01:57 Last Admin: 12/24/19 05:33 Dose: 100 mls/hr Sodium Chloride (Normal Saline) 1,000 mls @ 100 mls/hr IV ASDIRECTED [facility] Last Admin: 12/25/19 13:39 Dose: 100 mls/hr Sodium Chloride (Normal Saline) 250 mls @ 100 mls/hr IV ASDIRECTED [facility] Last Admin: 12/25/19 12:42 Dose: 100 mls/hr Phytonadione 5 mg/ Sodium (Chloride) 50.5 mls @ 100 mls/hr IV ONETIME ONE Stop: 12/25/19 10:30 Last Admin: 12/25/19 10:18 Dose: 100 mls/hr Lactated Ringer's (Ringers, Lactated) 1,000 mls @ 150 mls/hr IV ASDIRECTED [facility] Last Admin: 12/26/19 03:21 Dose: 150 mls/hr Iopamidol (Isovue-370 (76%)) 100 ml IV . DIRECTED ONE Stop: 12/24/19 03:05 Last Admin: 12/24/19 03:42 Dose: 100 ml Morphine Sulfate (Morphine) 2 mg IVPUSH Q2H PRN PRN Reason: Pain Last Admin: 12/24/19 07:05 Dose: 2 mg Morphine Sulfate (Morphine) 4 mg IVPUSH ONETIME ONE Stop: 12/24/19 04:56 Last Admin: 12/24/19 04:59 Dose: 4 mg Morphine Sulfate (Morphine) 4 mg IVPUSH Q2H PRN PRN Reason: PAIN Last Admin: 12/25/19 11:11 Dose: 4 mg Morphine Sulfate (Morphine [employer]s Trimmer 30 Mg In 30 Ml) 0 mg IV ASDIRECTED PRN; Protocol PRN Reason: Pain (severe 7-10) Morphine Sulfate (Morphine) 2 mg IVPUSH Q2H PRN PRN Reason: Pain Multivitamins/Minerals/Vitamin C (Tab-A-Elsa) 1 tab PO DAILY [facility] Naloxone HCl (Narcan) 0.4 mg IVPUSH Q2M PRN PRN Reason: Respiratory Distress Nitroglycerin (Nitrostat) 0.4 mg SL Q5M PRN PRN Reason: Chest Pain Last Admin: 12/24/19 02:39 Dose: 0.4 mg Non-Formulary Medication (Ascorbic Acid [Vitamin C With Veronika Hips]) 500 mg PO DAILY [facility] Non-Formulary Medication (Biotin [Biotin]) 10 mg PO DAILY [facility] Non-Formulary Medication (Calcium Carbonate/Vitamin D3 [Calcium 500-Vit D3 200 Tablet]) 1 each PO BID [facility] Non-Formulary Medication (Cholecalciferol (Vitamin D3) [Vitamin D3]) 2,000 unit PO DAILY [facility] Non-Formulary Medication (Magnesium [Magnesium]) 250 mg PO BID [facility] Ondansetron HCl (Zofran) 4 mg IVPUSH ONETIME ONE Stop: 12/24/19 02:34 Last Admin: 12/24/19 02:36 Dose: 4 mg Ondansetron HCl (Zofran) 4 mg IVPUSH ONETIME ONE Stop: 12/24/19 04:56 Last Admin: 12/24/19 04:59 Dose: 4 mg Oxybutynin Chloride (Oxybutynin) 5 mg PO BID [facility] Last Admin: 12/25/19 08:51 Dose: 5 mg Oxybutynin Chloride (Oxybutynin) 5 mg PO BID [facility] Pantoprazole Sodium (Protonix) 40 mg PO BEDTIME [facility] Last Admin: 12/24/19 20:34 Dose: 40 mg Polyethylene Glycol (Miralax) 17 gm PO DAILY PRN PRN Reason: Constipation Warfarin Sodium (Coumadin Sliding Scale) 1 each PO 1600 [facility] Last Admin: 12/26/19 13:29 Dose: Not Given *Q Meaningful Use (DIS) - VTE *Q VTE Pharmacological Contraindications *Q: High INR Value
--- NOTE | 2019-12-27 10:19 | PCM.SURGPN ---
- General Info Date of Service: 12/27/19 POD#: 2 Functional Status: Reports: Pain Controlled, Tolerating Diet, Ambulating, Urinating - Review of Systems General: Reports: No Symptoms Pulmonary: Reports: No Symptoms Cardiovascular: Reports: No Symptoms Gastrointestinal: Reports: Abdominal Pain (kris minimal ) - Patient Data Vitals - Most Recent: Last Vital Signs Temp 98.0 F 12/27/19 08:00 Pulse 72 12/27/19 09:45 Resp 20 12/27/19 08:00 BP 155/78 H 12/27/19 09:45 Pulse Ox 94 L 12/27/19 08:00 Weight - Most Recent: 92.59 kg I&O - Last 24 Hours: Intake & Output 12/26/19 12/27/19 12/27/19 22:59 06:59 14:59 Intake Total 464 1166 Output Total 125 1350 Balance 339 -184 Lab Results Last 24 Hrs: Laboratory Results - last 24 hr 12/27/19 12/27/19 Range/Units 06:36 06:36 WBC 4.7 (4.5-12.0) X10-3/uL RBC 2.68 L (3.23-5.20) x10(6)uL Hgb 8.8 L (11.5-15.5) g/dL Hct 26.5 L (30.0-51.3) % MCV 98.9 H (80-96) fL MCH 32.8 (27.7-33.6) pg MCHC 33.1 (32.2-35.4) g/dL RDW 12.4 (11.5-15.5) % Plt Count 220 (125-369) X10(3)uL MPV 6.5 L (7.4-10.4) fL Neut % (Auto) 74.4 (46-82) % Lymph % (Auto) 17.2 (13-37) % [place] % (Auto) 7.0 (4-12) % Eos % (Auto) 1 (1.0-5.0) % Baso % (Auto) 1 (0-2) % Neut # (Auto) 3.6 (1.6-8.3) # Lymph # (Auto) 0.8 (0.6-5.0) # [place] # (Auto) 0.3 (0.0-1.3) # Eos # (Auto) 0.0 (0.0-0.8) # Baso # (Auto) 0.0 (0.0-0.2) # Sodium 139 (135-145) mmol/L Potassium 3.8 (3.5-5.3) mmol/L Chloride 104 (100-110) mmol/L Carbon Dioxide 28 (21-32) mmol/L BUN 8 (7-18) mg/dL Creatinine 0.7 (0.55-1.02) mg/dL Est Cr Clr Drug Dosing 66.33 mL/min Estimated GFR (MDRD) > 60 (>60) BUN/Creatinine Ratio 11.4 (9-20) Glucose 86 (80-116) mg/dL Calcium 8.2 L (8.6-10.2) mg/dL Total Bilirubin 0.7 (0.1-1.3) mg/dL AST 51 H D (5-25) IU/L ALT 115 H D (12-36) U/L Alkaline Phosphatase 100 (56-112) IU/L Total Protein 5.8 L (6.0-8.0) g/dL Albumin 2.3 L (3.2-4.6) g/dL Globulin 3.5 g/dL Albumin/Globulin Ratio 0.7 Med Orders - Current: Current Medications Hydrocodone Bitart/Acetaminophen (Adams 325-5 Mg) 1 tab PO Q4H PRN PRN Reason: Pain Last Admin: 12/26/19 21:24 Dose: 1 tab Cefoxitin Sodium (Mefoxin) 1 gm IVPUSH Q8H [facility] Last Admin: 12/27/19 05:27 Dose: 1 gm Lactated Ringer's (Ringers, Lactated) 1,000 mls @ 75 mls/hr IV ASDIRECTED [facility] Last Admin: 12/27/19 01:00 Dose: 75 mls/hr Lisinopril (Prinivil) 40 mg PO DAILY [facility] Last Admin: 12/27/19 09:45 Dose: 40 mg Metoprolol Tartrate (Lopressor) 50 mg PO BID [facility] Last Admin: 12/27/19 09:45 Dose: 50 mg Ondansetron HCl (Zofran) 4 mg IV Q6H PRN PRN Reason: Nausea/Vomiting Pantoprazole Sodium (Protonix Iv) 40 mg IVPUSH Q12H [facility] Last Admin: 12/27/19 05:27 Dose: 40 mg Sodium Chloride (Saline Flush) 10 ml FLUSH ASDIRECTED PRN PRN Reason: Keep Vein Open Last Admin: 12/25/19 16:57 Dose: 10 ml Sucralfate (Carafate) 1 gm PO QIDACANDBED [facility] Last Admin: 12/27/19 07:30 Dose: 1 gm Warfarin Sodium (Coumadin Sliding Scale) 1 each PO 1600 [facility] Warfarin Sodium (Coumadin) 10 mg PO 1600 [facility] Last Admin: 12/26/19 17:16 Dose: 10 mg Discontinued Medications Acetaminophen (Tylenol Arthritis Pain) 1,300 mg PO Q8H PRN PRN Reason: Pain Acetaminophen (Tylenol Arthritis Pain) 1,300 mg PO Q8H [facility] Last Admin: 12/24/19 17:48 Dose: 1,300 mg Acetaminophen (Tylenol Arthritis Pain) 1,300 mg PO TID [facility] Last Admin: 12/25/19 13:40 Dose: Not Given Aspirin (Aspirin) 324 mg PO ONETIME ONE Stop: 12/24/19 01:57 Last Admin: 12/24/19 02:21 Dose: 324 mg Ceftriaxone Sodium (Rocephin) 1 gm IVPUSH ONETIME ONE Stop: 12/24/19 04:39 Last Admin: 12/24/19 04:44 Dose: 1 gm Sodium Chloride (Normal Saline) 1,000 mls @ 0 mls/hr IV ASDIRECTED [facility] Stop: 12/28/19 01:57 Last Admin: 12/24/19 05:33 Dose: 100 mls/hr Sodium Chloride (Normal Saline) 1,000 mls @ 100 mls/hr IV ASDIRECTED [facility] Last Admin: 12/25/19 13:39 Dose: 100 mls/hr Sodium Chloride (Normal Saline) 250 mls @ 100 mls/hr IV ASDIRECTED [facility] Last Admin: 12/25/19 12:42 Dose: 100 mls/hr Phytonadione 5 mg/ Sodium (Chloride) 50.5 mls @ 100 mls/hr IV ONETIME ONE Stop: 12/25/19 10:30 Last Admin: 12/25/19 10:18 Dose: 100 mls/hr Lactated Ringer's (Ringers, Lactated) 1,000 mls @ 150 mls/hr IV ASDIRECTED [facility] Last Admin: 12/26/19 03:21 Dose: 150 mls/hr Iopamidol (Isovue-370 (76%)) 100 ml IV . DIRECTED ONE Stop: 12/24/19 03:05 Last Admin: 12/24/19 03:42 Dose: 100 ml Morphine Sulfate (Morphine) 2 mg IVPUSH Q2H PRN PRN Reason: Pain Last Admin: 12/24/19 07:05 Dose: 2 mg Morphine Sulfate (Morphine) 4 mg IVPUSH ONETIME ONE Stop: 12/24/19 04:56 Last Admin: 12/24/19 04:59 Dose: 4 mg Morphine Sulfate (Morphine) 4 mg IVPUSH Q2H PRN PRN Reason: PAIN Last Admin: 12/25/19 11:11 Dose: 4 mg Morphine Sulfate (Morphine [employer] Clerk 30 Mg In 30 Ml) 0 mg IV ASDIRECTED PRN; Protocol PRN Reason: Pain (severe 7-10) Morphine Sulfate (Morphine) 2 mg IVPUSH Q2H PRN PRN Reason: Pain Multivitamins/Minerals/Vitamin C (Tab-A-Elsa) 1 tab PO DAILY [facility] Naloxone HCl (Narcan) 0.4 mg IVPUSH Q2M PRN PRN Reason: Respiratory Distress Nitroglycerin (Nitrostat) 0.4 mg SL Q5M PRN PRN Reason: Chest Pain Last Admin: 12/24/19 02:39 Dose: 0.4 mg Non-Formulary Medication (Ascorbic Acid [Vitamin C With Veronika Hips]) 500 mg PO DAILY [facility] Non-Formulary Medication (Biotin [Biotin]) 10 mg PO DAILY [facility] Non-Formulary Medication (Calcium Carbonate/Vitamin D3 [Calcium 500-Vit D3 200 Tablet]) 1 each PO BID [facility] Non-Formulary Medication (Cholecalciferol (Vitamin D3) [Vitamin D3]) 2,000 unit PO DAILY [facility] Non-Formulary Medication (Magnesium [Magnesium]) 250 mg PO BID [facility] Ondansetron HCl (Zofran) 4 mg IVPUSH ONETIME ONE Stop: 12/24/19 02:34 Last Admin: 12/24/19 02:36 Dose: 4 mg Ondansetron HCl (Zofran) 4 mg IVPUSH ONETIME ONE Stop: 12/24/19 04:56 Last Admin: 12/24/19 04:59 Dose: 4 mg Oxybutynin Chloride (Oxybutynin) 5 mg PO BID [facility] Last Admin: 12/25/19 08:51 Dose: 5 mg Oxybutynin Chloride (Oxybutynin) 5 mg PO BID [facility] Pantoprazole Sodium (Protonix) 40 mg PO BEDTIME [facility] Last Admin: 12/24/19 20:34 Dose: 40 mg Polyethylene Glycol (Miralax) 17 gm PO DAILY PRN PRN Reason: Constipation Warfarin Sodium (Coumadin Sliding Scale) 1 each PO 1600 [facility] Last Admin: 12/26/19 13:29 Dose: Not Given - Exam Wound/Incisions: Healing Well, No Drainage General: Alert, Oriented Lungs: Clear to Auscultation, Normal Respiratory Effort Cardiovascular: Regular Rate, Regular Rhythm GI/Abdominal Exam: Normal Bowel Sounds, Soft, Non-Tender Skin: Warm, Dry Sepsis Event Note - Evaluation Sepsis Screening Result: No Definite Risk - Focused Exam Vital Signs: Vital Signs Temp Pulse Pulse Resp BP BP Pulse Ox 12/27/19 09:45 72 155/78 H 12/27/19 08:00 98.0 F 72 20 155/78 H 94 L 12/27/19 04:00 98.2 F 71 18 147/72 H 94 L 12/27/19 00:00 97.8 F 70 16 156/75 H 96 Date Exam was Performed: 12/27/19 Time Exam was Performed: 10:16 - Problem List & Annotations (1) Cholelithiasis and acute cholecystitis without obstruction Status: Resolved Current Visit: Yes Annotation/Comment:: with lap cholecystectomy (2) History of gastric bypass SNOMED Code(s): 552820984 Code(s): Z98.890 - OTHER SPECIFIED POSTPROCEDURAL STATES Status: Acute Current Visit: No (3) Hypertension SNOMED Code(s): 01904338 Code(s): I10 - ESSENTIAL (PRIMARY) HYPERTENSION Status: Acute Current Visit: No Qualifiers: Hypertension type: essential hypertension Qualified Code(s): I10 - Essential (primary) hypertension (4) Paroxysmal atrial fibrillation SNOMED Code(s): 975821587 Code(s): I48.0 - PAROXYSMAL ATRIAL FIBRILLATION Status: Acute Current Visit: No (5) Chest pain SNOMED Code(s): 79589373 Code(s): R07.9 - CHEST PAIN, UNSPECIFIED Status: Acute Current Visit: Yes Qualifiers: Chest pain type: unspecified Qualified Code(s): R07.9 - Chest pain, unspecified - Problem List Review Problem List Initiated/Reviewed/Updated: Yes - My Orders Last 24 Hours: Active Orders 24 hr Category Date Time Status Communication Order [RC] ASDIRECTED Care 12/26/19 14:35 Active Ready for Discharge [RC] PER UNIT ROUTINE Care 12/27/19 10:03 Ordered Regular Diet [DIET] Diet 12/26/19 Dinner Active INR,PT,PROTHROMBIN TIME [COAG] Routine Lab 12/28/19 06:00 Ordered Warfarin Sliding Scale [Coumadin Sliding Scale] Med 12/26/19 16:00 Pending 1 each PO 1600 Warfarin [Coumadin] Med 12/26/19 16:00 Active 10 mg PO 1600 Medication Orders Hydrocodone Bitart/Acetaminophen (Adams 325-5 Mg) 1 tab PO Q4H PRN PRN Reason: Pain Last Admin: 12/26/19 21:24 Dose: 1 tab Admin: 12/26/19 17:16 Dose: 1 tab Admin: 12/26/19 13:14 Dose: 1 tab Admin: 12/26/19 08:27 Dose: 1 tab Cefoxitin Sodium (Mefoxin) 1 gm IVPUSH Q8H [facility] Last Admin: 12/27/19 05:27 Dose: 1 gm Admin: 12/26/19 20:46 Dose: 1 gm Admin: 12/26/19 13:16 Dose: 1 gm Admin: 12/26/19 06:08 Dose: 1 gm Admin: 12/25/19 22:00 Dose: 1 gm Admin: 12/25/19 13:26 Dose: 1 gm Admin: 12/25/19 03:35 Dose: 1 gm Admin: 12/24/19 20:32 Dose: 1 gm Admin: 12/24/19 13:09 Dose: 1 gm Lactated Ringer's (Ringers, Lactated) 1,000 mls @ 75 mls/hr IV ASDIRECTED [facility] Last Admin: 12/27/19 01:00 Dose: 75 mls/hr Infusion: 12/27/19 00:30 Dose: 75 mls/hr Admin: 12/26/19 11:10 Dose: 75 mls/hr Lisinopril (Prinivil) 40 mg PO DAILY [facility] Last Admin: 12/27/19 09:45 Dose: 40 mg Admin: 12/26/19 10:52 Dose: 40 mg Admin: 12/25/19 08:52 Dose: 40 mg Admin: 12/24/19 09:35 Dose: 40 mg Metoprolol Tartrate (Lopressor) 50 mg PO BID [facility] Last Admin: 12/27/19 09:45 Dose: 50 mg Admin: 12/26/19 20:46 Dose: 50 mg Admin: 12/26/19 10:53 Dose: 50 mg Admin: 12/25/19 21:03 Dose: 50 mg Admin: 12/25/19 08:49 Dose: 50 mg Admin: 12/24/19 20:33 Dose: 50 mg Admin: 12/24/19 09:36 Dose: 50 mg Ondansetron HCl (Zofran) 4 mg IV Q6H PRN PRN Reason: Nausea/Vomiting Pantoprazole Sodium (Protonix Iv) 40 mg IVPUSH Q12H [facility] Last Admin: 12/27/19 05:27 Dose: 40 mg Admin: 12/26/19 17:16 Dose: 40 mg Admin: 12/26/19 06:08 Dose: 40 mg Admin: 12/25/19 20:23 Dose: 40 mg Admin: 12/25/19 05:30 Dose: 40 mg Admin: 12/24/19 17:43 Dose: 40 mg Admin: 12/24/19 06:21 Dose: 40 mg Sodium Chloride (Saline Flush) 10 ml FLUSH ASDIRECTED PRN PRN Reason: Keep Vein Open Last Admin: 12/25/19 16:57 Dose: 10 ml Admin: 12/24/19 05:01 Dose: 10 ml Admin: 12/24/19 04:46 Dose: 10 ml Admin: 12/24/19 02:40 Dose: 10 ml Admin: 12/24/19 02:20 Dose: 10 ml Sucralfate (Carafate) 1 gm PO QIDACANDBED [facility] Last Admin: 12/27/19 07:30 Dose: 1 gm Admin: 12/26/19 20:47 Dose: 1 gm Admin: 12/26/19 17:16 Dose: 1 gm Admin: 12/26/19 13:15 Dose: 1 gm Admin: 12/26/19 10:52 Dose: 1 gm Warfarin Sodium (Coumadin Sliding Scale) 1 each PO 1600 ZACHARIAH Warfarin Sodium (Coumadin) 10 mg PO 1600 ZACHARIAH Last Admin: 12/26/19 17:16 Dose: 10 mg - Assessment Assessment (Free Text/Narrative):: ready for discharge. H/H is down a combination of dilution as well as the bleeding she had during surgery. she is asx. will give some Iron to take for a week. - Plan Plan (Free Text/Narrative):: see dc summary. will allow INR to come up slowly. Iron replacement for 7 days.
== END 2019-12-27 12:20 | disposition home or self-care (01) | DRG 419 ==
LOC: FB.ED 01:03 → FB.MS 04:42 → OBSVTOIN 12-25 08:55
PROVIDERS: ADMIT Emergency Medicine; ATTEND Surgery
PROC: 0FT44ZZ Resection of Gallbladder, Percutaneous Endoscopic Approach (ICD-10-PCS; principal; 2019-12-25)
DX: K80.01 Calculus of gallbladder with acute cholecystitis with obstruction (principal); Z98.890 Other specified postprocedural states; H54.7 Unspecified visual loss; E78.00 Pure hypercholesterolemia, unspecified; I10 Essential (primary) hypertension; Z86.718 Personal history of other venous thrombosis and embolism; J45.909 Unspecified asthma, uncomplicated; K21.9 Gastro-esophageal reflux disease without esophagitis; J45.20 Mild intermittent asthma, uncomplicated; N32.81 Overactive bladder; Z86.010 Personal history of colon polyps; M19.90 Unspecified osteoarthritis, unspecified site; Z96.643 Presence of artificial hip joint, bilateral; M54.9 Dorsalgia, unspecified; G89.29 Other chronic pain; M48.061 Spinal stenosis, lumbar region without neurogenic claudication; E66.9 Obesity, unspecified; K22.70 Barrett's esophagus without dysplasia; I48.0 Paroxysmal atrial fibrillation; Z88.6 Allergy status to analgesic agent; Z88.1 Allergy status to other antibiotic agents; M54.6 Pain in thoracic spine; R07.9 Chest pain, unspecified; Z91.040 Latex allergy status; Z98.1 Arthrodesis status; Z87.891 Personal history of nicotine dependence; Z98.84 Bariatric surgery status; Z68.33 Body mass index [BMI] 33.0-33.9, adult; Z88.2 Allergy status to sulfonamides; Z88.8 Allergy status to other drugs, medicaments and biological substances; Z88.0 Allergy status to penicillin; Z91.048 Other nonmedicinal substance allergy status; Z79.01 Long term (current) use of anticoagulants; Z79.899 Other long term (current) drug therapy; Z68.34 Body mass index [BMI] 34.0-34.9, adult
CPT/HCPCS: 36415 ×2; 71045; 71275; 74174; 76705; 80053 ×2; 83690; 83735; 84484 ×3; 85025 ×2; 85379; 85610 ×3; 86900; 86901; 93005 ×4; 96361; 96374; 96375; 99285; A9270 ×17; C9113 ×3; J0694 ×3; J0696; J2270 ×6; J2405 ×2; J7030 ×5; Q9967; 36430; 93010; 94150; 96376; 99284; G0378; J0360; J1100; J2001; J2250; J2704; J2710; J3010; J3430; J3490; J7050; J7120; P9017

== ENCOUNTER 2021-09-20 12:08 | Emergency (ER) | payer MEDICARE, OTHER ==
[2021-09-20 12:31] VITALS: BP 189/98; PULSE 106
[2021-09-20] MEDS ORDERED: Sodium Chloride 0.9% 10 ML Syringe FLUSH PRN ×2 (12:49→13:13)
[2021-09-20] MEDS ORDERED: Acetaminophen 500 MG Tab PO STA (13:43)
[2021-09-20] MEDS ORDERED: Albuterol/Ipratropium 3.0-0.5 MG/3 ML Neb Soln NEB STA (13:43)
[2021-09-20] MEDS: Labetalol 20 MG/4 ML Syringe IVPUSH STA ×2 (14:20→20:32)
--- NOTE | 2021-09-20 14:43 | CR ---
CHEST ONE VIEW INDICATION: Cough, dyspnea, history of lung CA. FINDINGS: Two AP portable upright views of the chest 09/20/21 were compared with 12/24/19 and 04/07/19. A Port-A-Cath is now noted in place. The heart may be enlarged but is not able to be fully evaluated due to what appears to be moderately large left pleural effusion. There may be a degree of atelectasis in the left lower lobe and lingula area. Aorta is tortuous with calcification of the arch. Pulmonary vasculature may be somewhat prominent raising the question of a mild degree of CHF. There does appear to be some patchy heavy markings which could represent fibrosis or possibly minimal patchy pneumonia. However, no gross consolidating pneumonia was identified. IMPRESSION: 1. Possible ASHD, cannot exclude cardiomegaly and mild CHF but should be correlated clinically. 2. Pleuroparenchymal changes likely at the left lung base, possibly atelectasis with a moderately large pleural effusion. Cannot exclude pneumonia and pleuritis in that area. Report was called to Dr. Leyva at 1415 hours 09/20/21. [facility]
[2021-09-20] MEDS ORDERED: Levofloxacin/Dextrose 5%-Water 750 MG in Premix Bag 1 BAG IV ONE (15:13)
--- NOTE | 2021-09-20 16:28 | EDM.PDOC ---
ED HPI GENERAL MEDICAL PROBLEM - General Chief Complaint: Respiratory Problem Stated Complaint: FEVER Time Seen by Provider: 09/20/21 12:15 Source of Information: Reports: Patient, Family History Limitations: Reports: No Limitations - History of Present Illness INITIAL COMMENTS - FREE TEXT/NARRATIVE: Patient is a 70 YO WF who has a history of Small Cell Lung CA with mets presen abhijeet to the ED because of increasing cough, dyspnea on exertion since she was diagnosed with Small Cell Lung CA in 09/06. Her cough is mostly dry, and her dyspnea is worse with physical activity. This morning she had low grade fever and chills. There is no nausea, vomiting, changes in bowel movements or urinary symptoms. 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: cough syrup - Related Data Allergies Allergy/AdvReac Type Severity Reaction Status Date / Time adhesive Allergy Itching Verified 12/24/19 01:16 amoxicillin [Amoxicillin] Allergy Itching Verified 12/24/19 01:16 cyclobenzaprine Allergy Cannot Verified 09/20/21 12:29 [Cyclobenzaprine] Remember diclofenac [Diclofenac] Allergy Cannot Verified 09/20/21 12:29 Remember doxycycline Allergy Itching Verified 09/20/21 12:29 hydrocodone Allergy Nausea Verified 09/20/21 12:29 hydromorphone [From Dilaudid] Allergy Hallucinati Verified 09/20/21 12:29 ons latex Allergy Rash Verified 09/20/21 12:29 nitrous oxide [Nitrous Oxide] Allergy Excitabilit Verified 09/20/21 12:29 y prednisone Allergy Itching Verified 09/20/21 12:29 pregabalin [From Lyrica] Allergy Confusion Verified 09/20/21 12:29 propoxyphene napsylate Allergy Nausea Verified 09/20/21 12:29 [From Darvocet-N 100] pseudoephedrine HCl Allergy Dizziness Verified 09/20/21 12:29 [From Actifed] rofecoxib [From Vioxx] Allergy Cannot Verified 09/20/21 12:29 Remember Sulfa (Sulfonamide Allergy Itching Verified 09/20/21 12:29 Antibiotics) tramadol Allergy Nausea Verified 09/20/21 12:29 triprolidine HCl Allergy Dizziness Verified 09/20/21 12:29 [From Actifed] dust mite extract Allergy Sneezing Uncoded 09/20/21 12:29 Home Meds: Home Meds Ascorbic Acid [Vitamin C with Veronika Hips] 500 mg PO DAILY 12/01/13 [History] Biotin 10 mg PO DAILY 12/01/13 [History] Cholecalciferol (Vitamin D3) [Vitamin D3] 2,000 unit PO DAILY 12/01/13 [History] Cyanocobalamin (Vitamin B-12) [Vitamin B-12] 500 mcg PO DAILY 12/01/13 [History] Lisinopril 40 mg PO DAILY 12/01/13 [History] Acetaminophen [Tylenol Arthritis Pain] 1,300 mg PO Q8H PRN 06/14/16 [History] Docusate Sodium [Colace] 200 mg PO DAILY 06/14/16 [History] Polyethylene Glycol 3350 [MiraLAX] 17 gm PO DAILY PRN 06/14/16 [History] Magnesium 250 mg PO BID 10/20/16 [History] Metoprolol Tartrate 50 mg PO BID 10/20/16 [History] Multivitamin [Daily Elsa] 1 tab PO DAILY 10/20/16 [History] Pantoprazole Sodium [Protonix] 40 mg PO BEDTIME 10/20/16 [History] Cephalexin [Keflex] 2,000 mg PO ONETIME PRN 02/23/17 [History] Warfarin [Coumadin] 12.5 mg PO MOFR 02/23/17 [History] Calcium Carbonate/Vitamin D3 [Calcium 500-Vit D3 200 Tablet] 1 each PO BID 02/26/17 [History] Warfarin [Coumadin] 10 mg PO SUTUWETHSA 04/07/19 [History] Oxybutynin 5 mg PO BID 12/24/19 [History] Acetaminophen/HYDROcodone [HYDROcodone-Acetaminophen 5-325 MG *] 1 tab PO Q6H PRN #16 tablet 12/27/19 [Rx] Ferrous Sulfate 325 mg PO DAILY #30 tablet 12/27/19 [Rx] Past Medical History HEENT History: Reports: Impaired Vision Cardiovascular History: Reports: Afib, Blood Clots/VTE/DVT, High Cholesterol, Hypertension Other Cardiovascular History: DVT Respiratory History: Reports: Asthma Other Respiratory History: mild, intermittent Gastrointestinal History: Reports: Colon Polyp, GERD Other Gastrointestinal History: COLE'S ESOPHAGUS Genitourinary History: Reports: Other (See Below) Other Genitourinary History: OAB (OVERACTIVE BLADDER) 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 (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 Below) Other LAYDOWN MACHINE OPERATOR History: NULLIGRAVIDA Musculoskeletal History: Reports: Arthritis, Back Pain, Chronic, Osteoarthritis, Other (See Below) Other Musculoskeletal History: BURSITIS, LEFT KNEE OSTEOARTHRITIS, SPINAL STENOSIS, SPONDYLOLISTHESIS Neurological History: Reports: Other (See Below) Other Neuro History: SPINAL STENOSIS ET SPONDYLOLISTHESIS OF LUMBAR REGION Psychiatric History: Reports: None Endocrine/Metabolic History: Reports: Obesity/BMI 30+ Hematologic History: Reports: Anemia, Anticoagulation Therapy, Blood Transfusion(s), Other (See Below) Other Hematologic History: HX OF DVT; acute blood loss anemia secondary to surgery Immunologic History: Reports: None Oncologic (Cancer) History: Reports: None Dermatologic History: Reports: Eczema - Past Surgical History Head Surgeries/Procedures: Reports: None GI Surgical History: Reports: Bariatric Procedure, Colonoscopy, EGD, Hernia, Inguinal Other GI Surgeries/Procedures: LIH WITH EXPLORATION Neurological Surgical History: Reports: Lumbar Spine Other Neurological Surgeries/Procedures: LUMBAR FUSION Musculoskeletal Surgical History: Reports: Ganglion Cyst, Hip Replacement, Other (See Below) Other Musculoskeletal Surgeries/Procedures:: catalino. hip arthroplasties 2006 and 2007, REVISION OF LEFT TOTAL HIP ARTHROPLAST 11/20/2013, LUMBAR FUSION Social & Family History - Family History Family Medical History: No Pertinent Family History - Caffeine Use Caffeine Use: Reports: Coffee Other Caffeine Use: 6 cups in am Caffeine Use Comment: before surgery consuming 4 cups a day. - Living Situation & Occupation Living situation: Reports: Occupation: Retired ED ROS GENERAL - Review of Systems Review Of Systems: See Below Constitutional: Reports: Fever, Chills, Malaise, Weakness HEENT: Reports: No Symptoms Respiratory: Reports: Shortness of Breath, Cough Cardiovascular: Reports: No Symptoms Endocrine: Reports: No Symptoms GI/Abdominal: Reports: No Symptoms : Reports: No Symptoms Musculoskeletal: Reports: No Symptoms Skin: Reports: No Symptoms Neurological: Reports: No Symptoms Psychiatric: Reports: No Symptoms Hematologic/Lymphatic: Reports: No Symptoms ED EXAM, GENERAL - Physical Exam Exam: See Below Exam Limited By: No Limitations General Appearance: Alert, No Apparent Distress Eye Exam: Bilateral Eye: PERRL Ears: Normal External Exam, Normal Canal Nose: Normal Inspection, Normal Mucosa, No Blood Throat/Mouth: Normal Inspection, Normal Lips, Normal Teeth, Normal Gums, Normal Oropharynx, Normal Voice Head: Atraumatic, Normocephalic Neck: Normal Inspection, Supple, Non-Tender, Full Range of Motion Respiratory/Chest: No Respiratory Distress, Decreased Breath Sounds, Rhonchi, Wheezing Cardiovascular: Normal Peripheral Pulses, Regular Rate, Rhythm, No Edema, No Gallop, No JVD, No Murmur, No Rub GI/Abdominal: Normal Bowel Sounds, Soft, Non-Tender, No Organomegaly, No Distention, No Abnormal Bruit, No Mass Back Exam: Normal Inspection, Full Range of Motion Extremities: Normal Inspection, Normal Range of Motion, Non-Tender, No Pedal Edema, Normal Capillary Refill Neurological: Alert, Oriented, CN II-XII Intact, Normal Cognition, Normal Gait Psychiatric: Normal Affect, Normal Mood #1 Interpretation EKG Date: 09/20/21 Time: 13:11 Rhythm: Other (Sinus Tach) Rate (Beats/Min): 107 [place]: Normal P-Wave: Present QRS: Normal ST-T: Normal QT: Normal NM/PQ Interval: 137 Comparison: NA - No Prior EKG (Sinus tach) Course - Vital Signs Text/Narrative:: Lab/EKG/CXR result was reviewed and discussed with patient and her family Duoneb x1 Tylenol 1000 mg PO x1 O2 VNC @ 2 LPM Levaquin 750 mg IV x1 Case was discussed with Dr Fu/Jahaira Last Recorded V/S: Last Vital Signs Temp 38.2 C H 09/20/21 12:08 Pulse 106 H 09/20/21 12:08 Resp 22 H 09/20/21 12:08 BP 189/98 H 09/20/21 12:08 Pulse Ox 92 L 09/20/21 12:08 - Orders/Labs/Meds Orders: Active Orders 24 hr Category Date Time Status RT Aerosol Therapy [RC] ASDIRECTED Care 09/20/21 13:44 Active CULTURE BLOOD [BC] Urgent Lab 09/20/21 13:25 Received CULTURE BLOOD [BC] Urgent Lab 09/20/21 13:35 Received Levofloxacin/Dextrose 5%-Water [Levaquin in D5W 750 MG/ Med 09/20/21 15:13 Active 150 ML] 750 mg Premix Bag 1 bag IV ONETIME Sodium Chloride 0.9% [Saline Flush] Med 09/20/21 12:49 Active 10 ml FLUSH ASDIRECTED PRN Sodium Chloride 0.9% [Saline Flush] Med 09/20/21 13:13 Active 10 ml FLUSH ASDIRECTED PRN Blood Culture x2 Reflex Set [OM.PC] Urgent Oth 09/20/21 12:49 Ordered Isolation [COMM] Routine Oth 09/20/21 13:10 Ordered Saline Lock Insert [OM.PC] Routine Oth 09/20/21 12:49 Ordered Saline Lock Insert [OM.PC] Routine Oth 09/20/21 13:13 Ordered EKG 12 Lead [EK] Routine Ther 09/20/21 12:49 Ordered Medication Orders Levofloxacin/Dextrose 750 mg/ (Premix) 150 mls @ 100 mls/hr IV ONETIME ONE Stop: 09/20/21 16:42 Last Admin: 09/20/21 15:55 Dose: 100 mls/hr Documented by: JIMENA Sodium Chloride (Sodium Chloride 0.9% 10 Ml Syringe) 10 ml FLUSH ASDIRECTED PRN PRN Reason: Keep Vein Open Sodium Chloride (Sodium Chloride 0.9% 10 Ml Syringe) 10 ml FLUSH ASDIRECTED PRN PRN Reason: Keep Vein Open Labs: Laboratory Tests 09/20/21 09/20/21 09/20/21 Range/Units 13:25 13:25 13:25 WBC 0.4 L* (3.0-10.3) x10-3/uL RBC 2.85 L (3.60-5.20) x10(6)uL Hgb 8.3 L (11.4-15.5) g/dL Hct 24.8 L (34.2-48.2) % MCV 86.7 (76.7-100.5) fL MCH 29.1 (23.9-33.9) pg MCHC 33.5 (31.9-34.8) g/dL RDW 14.2 (12.3-16.5) % Plt Count 47 L (151-488) x10(3)uL MPV 6.5 L (7.1-12.4) fL Add Manual Diff Yes Neutrophils % (Manual) 15 L (46-82) % Lymphocytes % (Manual) 65 H (13-37) % Monocytes % (Manual) 15 H (4-12) % Eosinophils % (Manual) 5 (0-5) % PT (9.0-11.1) sec INR (1.00-1.24) D-Dimer, Quantitative 1.07 H (0.0-0.59) mg/LFEU Sodium 128 L D (135-145) mmol/L Potassium 4.1 (3.5-5.3) mmol/L Chloride 95 L D (100-110) mmol/L Carbon Dioxide 26 (21-32) mmol/L BUN 9 (7-18) mg/dL Creatinine 0.7 (0.55-1.02) mg/dL Est Cr Clr Drug Dosing TNP Estimated GFR (MDRD) > 60 (>60) BUN/Creatinine Ratio 12.9 (9-20) Glucose 108 (80-116) mg/dL Lactic Acid (0.4-2.0) mmol/L Calcium 8.3 L (8.6-10.2) mg/dL Total Bilirubin 0.4 (0.1-1.3) mg/dL AST 23 D (5-25) IU/L ALT 25 D (12-36) U/L Alkaline Phosphatase 49 L (56-112) IU/L Troponin I (4.0-60.3) pg/mL C-Reactive Protein (0.5-0.9) mg/dL NT-Pro-B Natriuret Pep (<=125) pg/mL Total Protein 7.3 (6.0-8.0) g/dL Albumin 3.1 L (3.2-4.6) g/dL Globulin 4.2 g/dL Albumin/Globulin Ratio 0.7 Urine Color (YELLOW) Urine Appearance (CLEAR) Urine pH (5.0-6.5) Ur Specific [place] (1.010-1.025) Urine Protein (NEGATIVE) mg/dL Urine Glucose (UA) (NORMAL) mg/dL Urine Ketones (NEGATIVE) mg/dL Urine Occult Blood (NEGATIVE) Urine Nitrite (NEGATIVE) Urine Bilirubin (NEGATIVE) Urine Urobilinogen (NEGATIVE) mg/dL Ur Leukocyte Esterase (NEGATIVE) U Hyaline Cast (Auto) (NS) Urine RBC (0-5) Urine WBC (0-5) Ur Squamous Epith Cells (NS,R,O) Urine Bacteria (NS) SARS-CoV-2 RNA (FORERST) (NEGATIVE) 12/07/21 12/07/21 12/07/21 Range/Units 13:25 13:25 13:25 WBC (3.0-10.3) x10-3/uL RBC (3.60-5.20) x10(6)uL Hgb (11.4-15.5) g/dL Hct (34.2-48.2) % MCV (76.7-100.5) fL MCH (23.9-33.9) pg MCHC (31.9-34.8) g/dL RDW (12.3-16.5) % Plt Count (151-488) x10(3)uL MPV (7.1-12.4) fL Add Manual Diff Neutrophils % (Manual) (46-82) % Lymphocytes % (Manual) (13-37) % Monocytes % (Manual) (4-12) % Eosinophils % (Manual) (0-5) % PT 21.9 H (9.0-11.1) sec INR 2.13 H (1.00-1.24) D-Dimer, Quantitative (0.0-0.59) mg/LFEU Sodium (135-145) mmol/L Potassium (3.5-5.3) mmol/L Chloride (100-110) mmol/L Carbon Dioxide (21-32) mmol/L BUN (7-18) mg/dL Creatinine (0.55-1.02) mg/dL Est Cr Clr Drug Dosing Estimated GFR (MDRD) (>60) BUN/Creatinine Ratio (9-20) Glucose (80-116) mg/dL Lactic Acid (0.4-2.0) mmol/L Calcium (8.6-10.2) mg/dL Total Bilirubin (0.1-1.3) mg/dL AST (5-25) IU/L ALT (12-36) U/L Alkaline Phosphatase (56-112) IU/L Troponin I 10.6 (4.0-60.3) pg/mL C-Reactive Protein 3.7 H* (0.5-0.9) mg/dL NT-Pro-B Natriuret Pep 1379 H* (<=125) pg/mL Total Protein (6.0-8.0) g/dL Albumin (3.2-4.6) g/dL Globulin g/dL Albumin/Globulin Ratio Urine Color (YELLOW) Urine Appearance (CLEAR) Urine pH (5.0-6.5) Ur Specific [place] (1.010-1.025) Urine Protein (NEGATIVE) mg/dL Urine Glucose (UA) (NORMAL) mg/dL Urine Ketones (NEGATIVE) mg/dL Urine Occult Blood (NEGATIVE) Urine Nitrite (NEGATIVE) Urine Bilirubin (NEGATIVE) Urine Urobilinogen (NEGATIVE) mg/dL Ur Leukocyte Esterase (NEGATIVE) U Hyaline Cast (Auto) (NS) Urine RBC (0-5) Urine WBC (0-5) Ur Squamous Epith Cells (NS,R,O) Urine Bacteria (NS) SARS-CoV-2 RNA (FORREST) (NEGATIVE) 09/20/21 09/20/21 09/20/21 Range/Units 13:35 13:42 14:30 WBC (3.0-10.3) x10-3/uL RBC (3.60-5.20) x10(6)uL Hgb (11.4-15.5) g/dL Hct (34.2-48.2) % MCV (76.7-100.5) fL MCH (23.9-33.9) pg MCHC (31.9-34.8) g/dL RDW (12.3-16.5) % Plt Count (151-488) x10(3)uL MPV (7.1-12.4) fL Add Manual Diff Neutrophils % (Manual) (46-82) % Lymphocytes % (Manual) (13-37) % Monocytes % (Manual) (4-12) % Eosinophils % (Manual) (0-5) % PT (9.0-11.1) sec INR (1.00-1.24) D-Dimer, Quantitative (0.0-0.59) mg/LFEU Sodium (135-145) mmol/L Potassium (3.5-5.3) mmol/L Chloride (100-110) mmol/L Carbon Dioxide (21-32) mmol/L BUN (7-18) mg/dL Creatinine (0.55-1.02) mg/dL Est Cr Clr Drug Dosing Estimated GFR (MDRD) (>60) BUN/Creatinine Ratio (9-20) Glucose (80-116) mg/dL Lactic Acid 0.8 (0.4-2.0) mmol/L Calcium (8.6-10.2) mg/dL Total Bilirubin (0.1-1.3) mg/dL AST (5-25) IU/L ALT (12-36) U/L Alkaline Phosphatase (56-112) IU/L Troponin I (4.0-60.3) pg/mL C-Reactive Protein (0.5-0.9) mg/dL NT-Pro-B Natriuret Pep (<=125) pg/mL Total Protein (6.0-8.0) g/dL Albumin (3.2-4.6) g/dL Globulin g/dL Albumin/Globulin Ratio Urine Color Yellow (YELLOW) Urine Appearance Clear (CLEAR) Urine pH 7.0 H (5.0-6.5) Ur Specific [place] 1.005 L (1.010-1.025) Urine Protein Negative (NEGATIVE) mg/dL Urine Glucose (UA) Normal (NORMAL) mg/dL Urine Ketones 15 H (NEGATIVE) mg/dL Urine Occult Blood Moderate H (NEGATIVE) Urine Nitrite Negative (NEGATIVE) Urine Bilirubin Negative (NEGATIVE) Urine Urobilinogen Normal (NEGATIVE) mg/dL Ur Leukocyte Esterase Negative (NEGATIVE) U Hyaline Cast (Auto) Occasional H (NS) Urine RBC 5-10 H (0-5) Urine WBC 0-5 (0-5) Ur Squamous Epith Cells Few H (NS,R,O) Urine Bacteria Few H (NS) SARS-CoV-2 RNA (FORREST) Negative (NEGATIVE) Meds: Medications Generic Name Dose Route Start Last Admin Trade Name Freq PRN Reason Stop Dose Admin Levofloxacin/Dextrose 750 mg/ 150 mls @ 100 mls/hr 09/20/21 15:13 09/20/21 15:55 Premix IV 09/20/21 16:42 100 mls/hr ONETIME ONE Administration Sodium Chloride 10 ml 09/20/21 12:49 Sodium Chloride 0.9% 10 Ml Syringe FLUSH ASDIRECTED PRN Keep Vein Open Sodium Chloride 10 ml 09/20/21 13:13 Sodium Chloride 0.9% 10 Ml Syringe FLUSH ASDIRECTED PRN Keep Vein Open Discontinued Medications Generic Name Dose Route Start Last Admin Trade Name Freq PRN Reason Stop Dose Admin Acetaminophen 1,000 mg 09/20/21 13:43 09/20/21 13:47 Acetaminophen 500 Mg Tab PO 09/20/21 13:44 1,000 mg NOW STA Administration Albuterol/Ipratropium 3 ml 09/20/21 13:43 09/20/21 13:48 Albuterol/Ipratropium 3.0-0.5 Mg/3 Ml Neb Soln NEB 09/20/21 13:44 3 ml NOW STA Administration Labetalol HCl 20 mg 09/20/21 14:16 Labetalol 20 Mg/4 Ml Syringe IVPUSH 09/20/21 14:17 NOW STA Protocol Departure - Departure Time of Disposition: 16:00 Disposition: DC/Tfer to [facility] 02 Condition: Good Clinical Impression: Neutropenic fever, Small cell lung cancer - Discharge Information Referrals: PCP,None [Primary Care Provider] - Forms: ED Department Discharge Sepsis Event Note (ED) - Focused Exam Vital Signs: Vital Signs Temp Pulse Resp BP Pulse Ox 09/20/21 12:08 38.2 C H 106 H 22 H 189/98 H 92 L - My Orders Last 24 Hours: My Active Orders 09/20/21 12:49 Sodium Chloride 0.9% [Saline Flush] 10 ml FLUSH ASDIRECTED PRN Blood Culture x2 Reflex Set [OM.PC] Urgent Saline Lock Insert [OM.PC] Routine EKG 12 Lead [EK] Routine 09/20/21 13:10 Isolation [COMM] Routine 09/20/21 13:13 Sodium Chloride 0.9% [Saline Flush] 10 ml FLUSH ASDIRECTED PRN Saline Lock Insert [OM.PC] Routine 09/20/21 13:25 CULTURE BLOOD [BC] Urgent 09/20/21 13:35 CULTURE BLOOD [BC] Urgent 09/20/21 13:44 RT Aerosol Therapy [RC] ASDIRECTED 09/20/21 15:13 Levofloxacin/Dextrose 5%-Water [Levaquin in D5W 750 MG/150 ML] 750 mg Premix Bag 1 bag IV ONETIME - Assessment/Plan Last 24 Hours: My Active Orders 09/20/21 12:49 Sodium Chloride 0.9% [Saline Flush] 10 ml FLUSH ASDIRECTED PRN Blood Culture x2 Reflex Set [OM.PC] Urgent Saline Lock Insert [OM.PC] Routine EKG 12 Lead [EK] Routine 09/20/21 13:10 Isolation [COMM] Routine 09/20/21 13:13 Sodium Chloride 0.9% [Saline Flush] 10 ml FLUSH ASDIRECTED PRN Saline Lock Insert [OM.PC] Routine 09/20/21 13:25 CULTURE BLOOD [BC] Urgent 09/20/21 13:35 CULTURE BLOOD [BC] Urgent 09/20/21 13:44 RT Aerosol Therapy [RC] ASDIRECTED 09/20/21 15:13 Levofloxacin/Dextrose 5%-Water [Levaquin in D5W 750 MG/150 ML] 750 mg Premix Bag 1 bag IV ONETIME
== END 2021-09-20 18:45 ==
LOC: FB.ED 12:08
DX: C34.90 Malignant neoplasm of unspecified part of unspecified bronchus or lung (principal); D70.9 Neutropenia, unspecified; R50.81 Fever presenting with conditions classified elsewhere; I48.91 Unspecified atrial fibrillation; I10 Essential (primary) hypertension; J45.909 Unspecified asthma, uncomplicated; K21.9 Gastro-esophageal reflux disease without esophagitis; M19.90 Unspecified osteoarthritis, unspecified site; D64.9 Anemia, unspecified; R00.0 Tachycardia, unspecified; E66.9 Obesity, unspecified; Z91.048 Other nonmedicinal substance allergy status; Z88.0 Allergy status to penicillin; Z88.8 Allergy status to other drugs, medicaments and biological substances; Z88.1 Allergy status to other antibiotic agents; Z88.5 Allergy status to narcotic agent; Z91.040 Latex allergy status; Z88.2 Allergy status to sulfonamides; Z79.899 Other long term (current) drug therapy; Z20.822 Contact with and (suspected) exposure to COVID-19
CPT/HCPCS: 36415; 71045; 80053; 81001; 83605; 83880; 84484; 85025; 85379; 85610; 86140; 87040; 87804; 93005; 93010; 96365; 99285; A9270; J1956; U0002; J3490; J7620-GY